=== PATIENT | male | born 1940 | race Caucasian/White ===

== ENCOUNTER → 2016-09-01 | Outpatient (CLI) | payer MEDICARE, OTHER ==
[2016-09-01 15:44] LABS: ABSOLUTE EOSINOPHILS # (AUTO) 0.3 10^3/uL (0.0-0.6); ABSOLUTE LYMPHOCYTES (AUTO) 1.8 10^3/uL (0.5-4.7); ABSOLUTE NEUT (AUTO) 6.3 10^3/uL (1.7-8.2); BASOPHILS % (AUTO) 0.4 % (0-2); EOSINOPHILS % (AUTO) 3.3 % (0-6); HEMATOCRIT 29.9 % (37.9-51.0); HEMOGLOBIN 9.8 g/dL (13.5-17.0); HGB HCT DIFFERENCE -0.5; LYMPHOCYTES % (AUTO) 18.8 % (13-45); MEAN CORPUSCULAR HEMOGLOBIN 27.5 pg (27.0-33.4); MEAN CORPUSCULAR HGB CONC 32.7 g/dL (32.0-36.0); MEAN CORPUSCULAR VOLUME 84 fl (80-97); MONOCYTES % (AUTO) 10.7 % (3-13); RED BLOOD COUNT 3.55 10^6/uL (4.35-5.55); RED CELL DISTRIBUTION WIDTH 14.1 % (11.5-14.0); SEGMENTED NEUTROPHILS % (AUTO) 66.8 % (42-78); WHITE BLOOD COUNT 9.4 10^3/uL (4.0-10.5)
[2016-09-01 16:31] LABS: ERYTHROCYTE SEDIMENTATION RATE 92 mm/hr (0-20)
== END ==
LOC: OD 14:55
PROVIDERS: ATTEND Specialist
DX: R10.9 Unspecified abdominal pain (principal); K92.1 Melena; K51.90 Ulcerative colitis, unspecified, without complications; R11.0 Nausea
CPT/HCPCS: 36415; 85025; 85652; 86140; 86256; 87493

== ENCOUNTER 2016-09-07 21:34 | Emergency (ER) | payer MEDICARE, OTHER ==
[2016-09-07] MEDS ORDERED: ACETAMINOPHEN 325 MG TABLET PO ONE (22:31)
[2016-09-07 23:37] LABS: VENOUS BLOOD BASE EXCESS 1.7 mmol/L; VENOUS BLOOD HCO3 25.1 mmol/L (20-32); VENOUS BLOOD PCO2 35.6 mmHg (35-63); VENOUS BLOOD PH 7.47 (7.30-7.42)
[2016-09-07 23:42] LABS: ABSOLUTE BASOPHILS # (AUTO) 0.1 10^3/uL (0.0-0.2); ABSOLUTE EOSINOPHILS # (AUTO) 0.1 10^3/uL (0.0-0.6); ABSOLUTE LYMPHOCYTES (AUTO) 0.8 10^3/uL (0.5-4.7); ABSOLUTE MONOCYTES (AUTO) 1.5 10^3/uL (0.1-1.4); ABSOLUTE NEUT (AUTO) 12.4 10^3/uL (1.7-8.2); BASOPHILS % (AUTO) 0.6 % (0-2); EOSINOPHILS % (AUTO) 0.6 % (0-6); HEMOGLOBIN 8.7 g/dL (13.5-17.0); HGB HCT DIFFERENCE -0.9; LYMPHOCYTES % (AUTO) 5.7 % (13-45); MEAN CORPUSCULAR HEMOGLOBIN 26.5 pg (27.0-33.4); MEAN CORPUSCULAR HGB CONC 32.4 g/dL (32.0-36.0); MEAN CORPUSCULAR VOLUME 82 fl (80-97); RED BLOOD COUNT 3.29 10^6/uL (4.35-5.55); RED CELL DISTRIBUTION WIDTH 14.2 % (11.5-14.0); SEGMENTED NEUTROPHILS % (AUTO) 83.1 % (42-78); WHITE BLOOD COUNT 14.9 10^3/uL (4.0-10.5)
--- NOTE | 2016-09-07 23:49 | ER Document Report ---
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 He says he has a week off and on for last several days but tonight was prepping for colonoscopy. He started having diarrhea. He then started feels shaky all over and was tremulous for an hour. They checked his temp at home and it was 100.6. When he arrived here his fever was 101.6. He is scheduled to have a colonoscopy tomorrow by Dr. Elder Saba [facility]. He denies any vomiting. He says his hemoglobin has been trending downward is concerned that maybe this is making him more weak as well. Dysuria. He denies abdominal pain. He has had chronic diarrhea since February of last year. This was following being started on Augmentin. All his C. difficile test have been negative. He had a recent C. difficile testing last week which was also negative. He has had colonoscopy which showed proctitis. He has not had any biopsies or clipping of colon polyps. He has had some hemorrhoids banned. Previous history of atrial fibrillation. He underwent an ablation procedure which has been successful. Following the ablation's procedure he did require placement of a pacemaker which she still has. He is on no blood thinning medications currently. TRAVEL OUTSIDE OF THE [place] IN LAST 30 DAYS: No COUNTRY TRAVELED TO/FROM: [place] - Related Data Allergies/Adverse Reactions: No Known Allergies Allergy (Verified 06/07/16 06:40) Past Medical History - Social History Smoking Status: Unknown if Ever Smoked Frequency of alcohol use: None Drug Abuse: None Family History: Reviewed & Not Pertinent Patient has suicidal ideation: No Patient has homicidal ideation: No - Past Medical History Cardiac Medical History: Reports: Hx Coronary Artery Disease, Hx Hypertension - BORDERLINE Denies: Hx Heart Attack Pulmonary Medical History: Denies: Hx Asthma, Hx Bronchitis, Hx COPD, Hx Pneumonia Neurological Medical History: Denies: Hx Cerebrovascular Accident, Hx Seizures Renal/ Medical History: Denies: Hx Peritoneal Dialysis GI Medical History: Reports: Hx Ulcer - GIB 1980, peptic ulcer tx for H. pylori. Denies: Hx Hepatitis - neg, Hx Hiatal Hernia Musculoskeltal Medical History: Reports Hx Arthritis - KNEES, HX COMPRESSION FX' S Infectious Medical History: Denies: Hx Hepatitis - neg Past Surgical History: Reports: Hx Open Heart Surgery - robotic cardiac maze, Hx Pacemaker - Immunizations Hx Diphtheria, Pertussis, Tetanus Vaccination: Yes Hx Pneumococcal Vaccination: 03/27/14 Review of Systems - Review of Systems Notes: My Normal Review Basic REVIEW OF SYSTEMS: CONSTITUTIONAL : Denies fever, chills, or sweats. Denies recent illness. EENT: Denies eye, ear, throat, or mouth pain or symptoms. Denies nasal or sinus congestion. CARDIOVASCULAR: Denies chest pain. RESPIRATORY: Denies cough, cold, or chest congestion. Denies shortness of breath, difficulty breathing, or wheezing. GASTROINTESTINAL: Denies abdominal pain. Denies nausea, vomiting. Has recurrent diarrhea. GENITOURINARY: Denies difficulty urinating, painful urination, burning, frequency, or blood in urine. MUSCULOSKELETAL: Denies neck or back pain or joint pain or swelling. SKIN: Denies rash or skin lesions. HEMATOLOGIC : Denies easy bruising or bleeding. LYMPHATIC: Denies swollen, enlarged glands. NEUROLOGICAL: Denies altered mental status or loss of consciousness. Denies headache. Denies weakness or paralysis or loss of use of either side. Denies problems with gait or speech. Denies sensory or motor loss. ALL OTHER SYSTEMS REVIEWED AND NEGATIVE. Physical Exam - Vital signs Vitals: Temp Pulse Resp BP Pulse Ox 101.6 F H 86 20 149/62 H 92 09/07/16 21:40 09/07/16 21:40 09/07/16 21:40 09/07/16 21:40 09/07/16 21:40 - Notes Notes: General Appearance: Well nourished, alert, cooperative, no acute distress, no obvious discomfort. weak appearing. Vitals: reviewed, See vital signs table. Head: no swelling or tenderness to the head Eyes: PERRL, EOMI, Conjuctiva clear Mouth: No decreasd moisture Neck: Supple, no neck tenderness, No thyromegaly Lungs: No wheezing, No rales, No rhonci, No accessory muscle use, good air exchange bilaterally. Heart: Normal rate, Regular rythm, No murmur, no rub Abdomen: Normal BS, soft, No rigidity, No abdominal tenderness, No guarding, no rebound, no abdominal masses, no organomegaly Rectal: Some small amount of superficial skin breakdown around the rectal area. No evidence of abscesses or swelling. No active bleeding. Extremities: strength 5/5 in all extremities, good pulses in all extremities, no swelling or tenderness in the extremities, no edema. Skin: warm, dry, appropriate color, no rash Neuro: speech clear, oriented x 3, normal affect, responds appropriately to questions. Course - Vital Signs Vital signs: Temp Pulse Resp BP Pulse Ox 97.8 F 86 18 122/72 99 09/08/16 05:12 09/07/16 21:40 09/08/16 05:13 09/08/16 05:11 09/08/16 05:11 - Laboratory Result Diagrams: 09/07/16 23:15 09/07/16 23:15 Laboratory results interpreted by me: 09/07/16 09/07/16 09/07/16 23:15 23:15 23:15 WBC 14.9 H RBC 3.29 L Hgb 8.7 L Hct 27.0 L MCH 26.5 L RDW 14.2 H Seg Neutrophils % 83.1 H Lymphocytes % 5.7 L Absolute Neutrophils 12.4 H Absolute Monocytes 1.5 H VBG pH 7.47 H Sodium 136.5 L Glucose 168 H ALT 17 L Creatine Kinase 50 L Albumin 3.4 L Urine Ketones Urine Ascorbic Acid Crossmatch 09/07/16 09/08/16 23:15 01:05 WBC RBC Hgb Hct MCH RDW Seg Neutrophils % Lymphocytes % Absolute Neutrophils Absolute Monocytes VBG pH Sodium Glucose ALT Creatine Kinase Albumin Urine Ketones TRACE H Urine Ascorbic Acid 40 H Crossmatch See Detail - EKG Interpretation by Me Additional EKG results interpreted by me: 09/07/16 23:49 Is reviewed and interpreted by me. EKG shows paced rhythm with a rate of [address] segment elevation or depression. No ischemic T-wave inversions. Intervals prolonged. QRS duration QT intervals are within normal range. No old EKG available for comparison at this time. - Transfer of Care Notes: 09/08/16 06:01 Weakness is gone. Clinically he looks well and he feels much improved. He does have an elevated white blood cell count and did have a fever. I suspect this probably related to his chronic prostatitis. Now that he is developing fever I think it is appropriate to treat him with Cipro and Flagyl. I did perform a CT scan and did not show any evidence of any other causes of infection. His chest x-ray and urinalysis were negative. Patient's will be discharged home. I informed him that he must return to ER immediately if he has recurrent fevers or feels unwell. I did speak with Ginger Dawson for DR. Friedman, he will cancel the colonoscopy this morning but have the office dr. Soares arrange for a new follow-up appointment and also to see how he is doing. I encouraged him to follow-up closely with his primary care doctor. Patient's hemoglobin was 8.7 however I think this is artificially elevated due to some dehydration. His hemoglobin is 8.1 a few days he only had bleeding since then. I suspect his hemoglobin is most likely the 7 range. Patient has been feeling more more week and did request a blood transfusion. I did review the risks and benefits of blood transfusion and he still want to go forward with that. Patient was given 1 unit of blood. He feels much improved. Patient will be discharged home. Patient agrees with plan. Discharge - Discharge Clinical Impression: Diarrhea Qualifiers: Diarrhea type: unspecified type Qualified Code(s): R19.7 - Diarrhea, unspecified Fever Qualifiers: Fever type: unspecified Qualified Code(s): R50.9 - Fever, unspecified Condition: Good Disposition: HOME, SELF-CARE Additional Instructions: Please return to the ER immediately if you develop fevers, any abdominal pain, feel you are getting weak again, or have further concerns. You should be hearing from Dr. Friedman's office tomorrow. They have cancelled your colonoscopy. do not do any further bowel prep. Please follow up with your doctor tomorrow or Monday for reevaluation. Prescriptions: Ciprofloxacin HCl [Cipro 500 mg Tablet] 500 mg PO BID #14 tablet Metronidazole [Flagyl 500 mg Tablet] 500 mg PO Q6H #28 tablet Referrals: ADIA RDZ MD [Primary Care Provider] - 09/09/16
[2016-09-07 23:52] LABS: ALANINE AMINOTRANSFERASE 17 U/L (21-72); ALBUMIN 3.4 g/dL (3.5-5.0); ALKALINE PHOSPHATASE 78 U/L (38-126); ANION GAP 12 (5-19); ASPARTATE AMINO TRANSFERASE 49 U/L (17-59); BILIRUBIN,DIRECT 0.4 mg/dL (0.0-0.4); BILIRUBIN,TOTAL 0.7 mg/dL (0.2-1.3); BLOOD UREA NITROGEN 20 mg/dL (7-20); CALCIUM 8.7 mg/dL (8.4-10.2); CARBON DIOXIDE 23 mmol/L (22-30); CHLORIDE 102 mmol/L (98-107); CREATINE KINASE 50 U/L (55-170); GLUCOSE 168 mg/dL (75-110); POTASSIUM 4.6 mmol/L (3.6-5.0); SODIUM 136.5 mmol/L (137-145)
[2016-09-08 00:01] LABS: CREATINE KINASE MB 0.49 ng/mL (<4.55)
[2016-09-08 00:06] LABS: TROPONIN I 0.035 ng/mL
[2016-09-08] MEDS ORDERED: NORMAL SALINE 250 ML IV PRN (00:09)
[2016-09-08] MEDS ORDERED: NORMAL SALINE 500 ML IV ONE (01:07)
[2016-09-08 01:24] LABS: APPEARANCE,URINE CLEAR; BILIRUBIN,URINE NEGATIVE (NEGATIVE); GLUCOSE, URINE NEGATIVE (NEGATIVE); KETONES,URINE TRACE mg/dL (NEGATIVE); LEUKOCYTE ESTERASE,URINE NEGATIVE (NEGATIVE); NITRITE,URINE NEGATIVE (NEGATIVE); PROTEIN,URINE NEGATIVE (NEGATIVE); URINE SPECIFIC GRAVITY 1.016; UROBILINOGEN,URINE NEGATIVE mg/dL (<2.0)
--- NOTE | 2016-09-08 02:16 | RADIOLOGY REPORT (SQ) ---
EXAM DESCRIPTION: CHEST PA/LAT COMPLETED DATE/TIME: 09/08/2016 1:50 am REASON FOR STUDY: fever COMPARISON: 02/18/2009. EXAM PARAMETERS: NUMBER OF VIEWS: two views TECHNIQUE: Digital Frontal and Lateral radiographic views of the chest acquired. RADIATION DOSE: NA LIMITATIONS: none FINDINGS: LUNGS AND PLEURA: No opacities, masses or pneumothorax. No pleural effusion. Mild hyperin flation. MEDIASTINUM AND HILAR STRUCTURES: No masses or contour abnormalities. HEART AND VASCULAR STRUCTURES: Heart normal size. No evidence for failure. BONES: No acute findings. HARDWARE: Left cardiac stimulation device and leads. Metallic anchor of the right humeral head. OTHER: No other significant finding. IMPRESSION: No acute cardiopulmonary findings. TECHNICAL DOCUMENTATION: JOB ID: [id number] [employer]- All Rights Reserved
--- NOTE | 2016-09-08 04:28 | RADIOLOGY REPORT (SQ) ---
EXAM DESCRIPTION: CT ABD/PELVIS WITH IV ONLY COMPLETED DATE/TIME: 09/08/2016 4:08 am REASON FOR STUDY: diarrhea, fever COMPARISON: 9.30.13 12/05/2008. TECHNIQUE: CT scan of the abdomen and pelvis performed using helical scanning technique with dynamic intravenous contrast injection. No oral contrast. Images reviewed with lung, soft tissue, and bone windows. Reconstructed coronal and sagittal MPR images reviewed. Delayed images for evaluation of the urinary system also acquired. All images stored on PACS. All CT scanners at this facility use dose modulation, iterative reconstruction, and/or weight based d osing when appropriate to reduce radiation dose to as low as reasonably achievable (ALARA). [facility]: Dose Right [facility]: CareDose [facility]: Dose Right [facility]: Teradose 4D [facility]: Netrepid CONTRAST TYPE AND DOSE: contrast/concentration: Isovue 370.00 mg/ml; Total Contrast Delivered: 100.0 ml; Total Saline Delivered: 72.1 ml RENAL FUNCTION: Creatinine 0.9 RADIATION DOSE: 2238 LIMITATIONS: None. FINDINGS: LOWER CHEST: Coronary arterial calcification -stenting. Cardiac stimulation leads. LIVER: Small subpleural cyst of the left lung base. Mild bibasilar atelectasis or scar. SPLEEN: Normal size. No focal lesions. PANCREAS: No masses. No significant calcifications. No adjacent inflammation or peripancreatic fluid collections. Pancreatic duct not dilated. GALLBLADDER: Gallstones. No inflammatory changes to suggest cholecystitis. ADRENAL GLANDS: Likely right adrenalectomy clips. Unremarkable left adrenal gland. RIGHT KIDNEY AND URETER: No solid masses. No significant calcifications. No hydronephrosis or hyd roureter. Moderate perinephric fat stranding. LEFT KIDNEY AND URETER: No solid masses. No significant calcifications. No hydronephrosis or hydr oureter. Moderate perinephric fat stranding. The AORTA AND VESSELS: No aneurysm. No dissection. Renal arteries, SMA, celiac without stenosis. RETROPERITONEUM: No retroperitoneal adenopathy, hemorrhage or masses. BOWEL AND PERITONEAL CAVITY: No masses or inflammatory changes. No free fluid or peritoneal masses. APPENDIX: Surgically absent. PELVIS: No mass or free fluid. Normal bladder. ABDOMINAL WALL: No masses. No hernias. BONES: Moderate L1, mild-moderate L3, and mild L2 compression deformities, stable compared with prior exam, 12/24/2012. OTHER: No other significant finding. IMPRESSION: No acute findings. Cholelithiasis. TECHNICAL DOCUMENTATION: JOB ID: [id number] Quality ID # [id number]: Final reports with documentation of one or more dose reduction techniques (e.g., Au tomated exposure control, adjustment of the mA and/or kV according to patient size, use of iterative reconstruction technique) 2010 [employer]- All Rights Reserved
[2016-09-08] MEDS ORDERED: CIPROFLOXACIN HCL 500 MG TABLET PO ONE (04:41)
[2016-09-08] MEDS ORDERED: METRONIDAZOLE 500 MG TABLET PO ONE (04:41)
[2016-09-08 05:13] VITALS: BP 122/72
--- NOTE | 2016-09-08 08:31 | EKG REPORT ---
SEVERITY:- ABNORMAL ECG - ATRIAL-PACED COMPLEXES LOW VOLTAGE THROUGHOUT : Confirmed by: Ruib Almanza 08-Sep-2016 08:30:24
== END 2016-09-08 05:29 | disposition home or self-care (01) ==
LOC: ER 21:34
DX: R19.7 Diarrhea, unspecified (principal); R50.9 Fever, unspecified; R53.1 Weakness
CPT/HCPCS: 93005; 99285; 86900; 86901; 36415; 82553; 36430; 86850; 82550; 85025; 80053; 81001; 84484; 86920; 82803; 83605; 71020; 74177; 93010; P9016; A9270 ×3; J7050

== ENCOUNTER → 2016-09-13 | Outpatient (CLI) | payer MEDICARE, OTHER ==
[2016-09-14 11:20] LABS: ABSOLUTE LYMPHOCYTES (AUTO) 0.9 10^3/uL (0.5-4.7); ABSOLUTE MONOCYTES (AUTO) 0.5 10^3/uL (0.1-1.4); ABSOLUTE NEUT (AUTO) 12.3 10^3/uL (1.7-8.2); BASOPHILS % (AUTO) 0.1 % (0-2); HEMATOCRIT 31.5 % (37.9-51.0); HEMOGLOBIN 10.2 g/dL (13.5-17.0); HGB HCT DIFFERENCE -0.9; LYMPHOCYTES % (AUTO) 6.3 % (13-45); MEAN CORPUSCULAR HEMOGLOBIN 26.5 pg (27.0-33.4); MEAN CORPUSCULAR HGB CONC 32.2 g/dL (32.0-36.0); MEAN CORPUSCULAR VOLUME 82 fl (80-97); MONOCYTES % (AUTO) 3.7 % (3-13); RED BLOOD COUNT 3.83 10^6/uL (4.35-5.55); RED CELL DISTRIBUTION WIDTH 14.7 % (11.5-14.0); SEGMENTED NEUTROPHILS % (AUTO) 89.9 % (42-78); WHITE BLOOD COUNT 13.6 10^3/uL (4.0-10.5)
[2016-09-14 11:40] LABS: ALANINE AMINOTRANSFERASE 26 U/L (21-72); ALBUMIN 3.6 g/dL (3.5-5.0); ALKALINE PHOSPHATASE 82 U/L (38-126); ANION GAP 15 (5-19); ASPARTATE AMINO TRANSFERASE 28 U/L (17-59); BILIRUBIN,DIRECT 0.4 mg/dL (0.0-0.4); BILIRUBIN,TOTAL 0.4 mg/dL (0.2-1.3); BLOOD UREA NITROGEN 22 mg/dL (7-20); CALCIUM 9.5 mg/dL (8.4-10.2); CARBON DIOXIDE 21 mmol/L (22-30); CHLORIDE 103 mmol/L (98-107); CREATININE RESULT 0.88 mg/dL (0.52-1.25); GLUCOSE 164 mg/dL (75-110); POTASSIUM 4.9 mmol/L (3.6-5.0); SODIUM 138.5 mmol/L (137-145); TOTAL PROTEIN 7.1 g/dL (6.3-8.2)
[2016-09-15 08:31] LABS: CYTOMEGALOVIRUS IGG AB <0.60 U/mL (0.00-0.59); HSV-I IGG AB <0.91 index (0.00-0.90); HSV-II IGG AB >23.60 index (0.00-0.90)
[2016-09-16 08:48] LABS: HSV I AND II IGM AB <0.91 Ratio (0.00-0.90)
[2016-09-20 15:38] LABS: QUANTIFERON TB ANTIGEN VALUE 0.03 IU/mL (.); QUANTIFERON TB NIL VALUE 0.02 IU/mL (.)
[2016-09-21 07:05] LABS: TPMT ACTIVITY 19.1 (.)
== END ==
LOC: OD 15:11
PROVIDERS: ATTEND Internal Medicine Gastroenterology
DX: D64.9 Anemia, unspecified (principal); K52.9 Noninfective gastroenteritis and colitis, unspecified
CPT/HCPCS: 36415; 80053; 82542; 85025; 86317; 86480; 86644; 86695; 86696; 87340

== ENCOUNTER → 2016-11-01 | Outpatient (CLI) | payer MEDICARE, OTHER ==
[2016-11-01 12:32] LABS: ABSOLUTE EOSINOPHILS # (AUTO) 0.1 10^3/uL (0.0-0.6); ABSOLUTE LYMPHOCYTES (AUTO) 1.2 10^3/uL (0.5-4.7); ABSOLUTE MONOCYTES (AUTO) 0.7 10^3/uL (0.1-1.4); ABSOLUTE NEUT (AUTO) 6.2 10^3/uL (1.7-8.2); BASOPHILS % (AUTO) 0.6 % (0-2); EOSINOPHILS % (AUTO) 1.1 % (0-6); HEMATOCRIT 33.3 % (37.9-51.0); HGB HCT DIFFERENCE -0.3; LYMPHOCYTES % (AUTO) 15.1 % (13-45); MEAN CORPUSCULAR HEMOGLOBIN 27.8 pg (27.0-33.4); MEAN CORPUSCULAR HGB CONC 32.9 g/dL (32.0-36.0); MEAN CORPUSCULAR VOLUME 85 fl (80-97); MONOCYTES % (AUTO) 8.2 % (3-13); RED BLOOD COUNT 3.94 10^6/uL (4.35-5.55); RED CELL DISTRIBUTION WIDTH 16.4 % (11.5-14.0); WHITE BLOOD COUNT 8.2 10^3/uL (4.0-10.5)
== END ==
LOC: OD 11:46
PROVIDERS: ATTEND Internal Medicine Gastroenterology
DX: D64.9 Anemia, unspecified (principal)
CPT/HCPCS: 36415; 82728; 83540; 83550; 85025

== ENCOUNTER → 2017-04-26 | Outpatient (CLI) | payer MEDICARE, OTHER | LOC: OD 15:31 | PROVIDERS: ATTEND Internal Medicine Gastroenterology | DX: K50.10 Crohn's disease of large intestine without complications (principal) | CPT/HCPCS: 36415 ==

== ENCOUNTER → 2017-05-12 | Outpatient (CLI) | payer MEDICARE, OTHER ==
[2017-05-12 13:05] LABS: ABSOLUTE EOSINOPHILS # (AUTO) 0.2 10^3/uL (0.0-0.6); ABSOLUTE NEUT (AUTO) 6.5 10^3/uL (1.7-8.2); BASOPHILS % (AUTO) 0.5 % (0-2); HEMATOCRIT 29.6 % (37.9-51.0); HEMOGLOBIN 9.9 g/dL (13.5-17.0); LYMPHOCYTES % (AUTO) 11.5 % (13-45); MEAN CORPUSCULAR HEMOGLOBIN 28.4 pg (27.0-33.4); MEAN CORPUSCULAR HGB CONC 33.4 g/dL (32.0-36.0); MEAN CORPUSCULAR VOLUME 85 fl (80-97); PLATELET COUNT 354 10^3/uL (150-450); RED BLOOD COUNT 3.48 10^6/uL (4.35-5.55); RED CELL DISTRIBUTION WIDTH 13.3 % (11.5-14.0); TOTAL CELLS COUNTED % (AUTO) 100 %; WHITE BLOOD COUNT 8.7 10^3/uL (4.0-10.5)
[2017-05-12 13:25] LABS: ALANINE AMINOTRANSFERASE 22 U/L (21-72); ALBUMIN 3.4 g/dL (3.5-5.0); ALKALINE PHOSPHATASE 93 U/L (38-126); ANION GAP 9 (5-19); ASPARTATE AMINO TRANSFERASE 21 U/L (17-59); BILIRUBIN,DIRECT 0.4 mg/dL (0.0-0.4); BILIRUBIN,TOTAL 0.6 mg/dL (0.2-1.3); BLOOD UREA NITROGEN 21 mg/dL (7-20); CALCIUM 9.7 mg/dL (8.4-10.2); CARBON DIOXIDE 26 mmol/L (22-30); CHLORIDE 101 mmol/L (98-107); GLUCOSE 178 mg/dL (75-110); POTASSIUM 5.1 mmol/L (3.6-5.0); SODIUM 136.1 mmol/L (137-145); TOTAL PROTEIN 6.8 g/dL (6.3-8.2)
[2017-05-12 13:38] LABS: C-REACTIVE PROTEIN 178.1 mg/L (<10.0)
[2017-05-12 13:48] LABS: ERYTHROCYTE SEDIMENTATION RATE 104 mm/hr (0-20)
== END ==
LOC: OD 12:09
PROVIDERS: ATTEND Internal Medicine Gastroenterology
DX: K50.10 Crohn's disease of large intestine without complications (principal)
CPT/HCPCS: 36415; 80053; 85025; 85652; 86140; 87040; 87077; 87186

== ENCOUNTER → 2017-05-19 | Outpatient (CLI) | payer MEDICARE, OTHER ==
[2017-05-19 13:52] LABS: ABSOLUTE BASOPHILS # (AUTO) 0.1 10^3/uL (0.0-0.2); ABSOLUTE EOSINOPHILS # (AUTO) 0.1 10^3/uL (0.0-0.6); ABSOLUTE LYMPHOCYTES (AUTO) 1.4 10^3/uL (0.5-4.7); ABSOLUTE MONOCYTES (AUTO) 1.3 10^3/uL (0.1-1.4); ABSOLUTE NEUT (AUTO) 10.5 10^3/uL (1.7-8.2); BASOPHILS % (AUTO) 0.8 % (0-2); EOSINOPHILS % (AUTO) 0.7 % (0-6); HEMOGLOBIN 10.2 g/dL (13.5-17.0); LYMPHOCYTES % (AUTO) 10.8 % (13-45); MEAN CORPUSCULAR HEMOGLOBIN 27.7 pg (27.0-33.4); MEAN CORPUSCULAR HGB CONC 32.9 g/dL (32.0-36.0); MEAN CORPUSCULAR VOLUME 84 fl (80-97); MONOCYTES % (AUTO) 9.5 % (3-13); PLATELET COUNT 422 10^3/uL (150-450); RED BLOOD COUNT 3.68 10^6/uL (4.35-5.55); RED CELL DISTRIBUTION WIDTH 13.5 % (11.5-14.0); SEGMENTED NEUTROPHILS % (AUTO) 78.2 % (42-78); TOTAL CELLS COUNTED % (AUTO) 100 %; WHITE BLOOD COUNT 13.5 10^3/uL (4.0-10.5)
== END ==
LOC: OD 12:44
PROVIDERS: ATTEND Internal Medicine Gastroenterology
DX: K50.10 Crohn's disease of large intestine without complications (principal)
CPT/HCPCS: 36415; 85025

== ENCOUNTER → 2017-05-26 | Outpatient (CLI) | payer MEDICARE, OTHER ==
[2017-05-26 17:55] LABS: ABSOLUTE LYMPHOCYTES (AUTO) 0.8 10^3/uL (0.5-4.7); ABSOLUTE MONOCYTES (AUTO) 0.4 10^3/uL (0.1-1.4); ABSOLUTE NEUT (AUTO) 12.3 10^3/uL (1.7-8.2); BASOPHILS % (AUTO) 0.3 % (0-2); EOSINOPHILS % (AUTO) 0.3 % (0-6); HEMATOCRIT 32.8 % (37.9-51.0); HEMOGLOBIN 10.7 g/dL (13.5-17.0); MEAN CORPUSCULAR HEMOGLOBIN 27.7 pg (27.0-33.4); MEAN CORPUSCULAR HGB CONC 32.6 g/dL (32.0-36.0); MEAN CORPUSCULAR VOLUME 85 fl (80-97); MONOCYTES % (AUTO) 3.2 % (3-13); PLATELET COUNT 348 10^3/uL (150-450); RED BLOOD COUNT 3.86 10^6/uL (4.35-5.55); RED CELL DISTRIBUTION WIDTH 14.2 % (11.5-14.0); SEGMENTED NEUTROPHILS % (AUTO) 90.2 % (42-78); TOTAL CELLS COUNTED % (AUTO) 100 %; WHITE BLOOD COUNT 13.7 10^3/uL (4.0-10.5)
== END ==
LOC: OD 17:08
PROVIDERS: ATTEND Internal Medicine Gastroenterology
DX: K50.10 Crohn's disease of large intestine without complications (principal)
CPT/HCPCS: 36415; 85025

== ENCOUNTER → 2017-06-02 | Outpatient (CLI) | payer MEDICARE, OTHER ==
[2017-06-02 11:29] LABS: ABSOLUTE BASOPHILS # (AUTO) 0.1 10^3/uL (0.0-0.2); ABSOLUTE EOSINOPHILS # (AUTO) 0.2 10^3/uL (0.0-0.6); ABSOLUTE LYMPHOCYTES (AUTO) 2.1 10^3/uL (0.5-4.7); ABSOLUTE MONOCYTES (AUTO) 1.2 10^3/uL (0.1-1.4); ABSOLUTE NEUT (AUTO) 4.6 10^3/uL (1.7-8.2); BASOPHILS % (AUTO) 0.7 % (0-2); EOSINOPHILS % (AUTO) 2.7 % (0-6); HEMATOCRIT 30.9 % (37.9-51.0); LYMPHOCYTES % (AUTO) 25.3 % (13-45); MEAN CORPUSCULAR HEMOGLOBIN 27.9 pg (27.0-33.4); MEAN CORPUSCULAR HGB CONC 32.3 g/dL (32.0-36.0); MEAN CORPUSCULAR VOLUME 86 fl (80-97); MONOCYTES % (AUTO) 14.2 % (3-13); PLATELET COUNT 295 10^3/uL (150-450); RED BLOOD COUNT 3.58 10^6/uL (4.35-5.55); RED CELL DISTRIBUTION WIDTH 14.9 % (11.5-14.0); SEGMENTED NEUTROPHILS % (AUTO) 57.1 % (42-78); TOTAL CELLS COUNTED % (AUTO) 100 %; WHITE BLOOD COUNT 8.1 10^3/uL (4.0-10.5)
== END ==
LOC: OD 10:42
PROVIDERS: ATTEND Internal Medicine Gastroenterology
DX: K50.10 Crohn's disease of large intestine without complications (principal)
CPT/HCPCS: 36415; 85025

== ENCOUNTER → 2017-06-16 | Outpatient (CLI) | payer MEDICARE, OTHER ==
[2017-06-16 13:25] LABS: ABSOLUTE BASOPHILS # (AUTO) 0.1 10^3/uL (0.0-0.2); ABSOLUTE EOSINOPHILS # (AUTO) 0.2 10^3/uL (0.0-0.6); ABSOLUTE LYMPHOCYTES (AUTO) 1.5 10^3/uL (0.5-4.7); ABSOLUTE MONOCYTES (AUTO) 0.9 10^3/uL (0.1-1.4); ABSOLUTE NEUT (AUTO) 5.1 10^3/uL (1.7-8.2); BASOPHILS % (AUTO) 0.7 % (0-2); EOSINOPHILS % (AUTO) 2.2 % (0-6); HEMATOCRIT 29.4 % (37.9-51.0); HEMOGLOBIN 9.6 g/dL (13.5-17.0); LYMPHOCYTES % (AUTO) 19.5 % (13-45); MEAN CORPUSCULAR HEMOGLOBIN 27.9 pg (27.0-33.4); MEAN CORPUSCULAR HGB CONC 32.5 g/dL (32.0-36.0); MEAN CORPUSCULAR VOLUME 86 fl (80-97); MONOCYTES % (AUTO) 12.1 % (3-13); PLATELET COUNT 306 10^3/uL (150-450); RED BLOOD COUNT 3.42 10^6/uL (4.35-5.55); RED CELL DISTRIBUTION WIDTH 15.3 % (11.5-14.0); SEGMENTED NEUTROPHILS % (AUTO) 65.5 % (42-78); TOTAL CELLS COUNTED % (AUTO) 100 %; WHITE BLOOD COUNT 7.8 10^3/uL (4.0-10.5)
== END ==
LOC: OD 12:03
PROVIDERS: ATTEND Internal Medicine Gastroenterology
DX: K50.10 Crohn's disease of large intestine without complications (principal)
CPT/HCPCS: 36415; 85025

== ENCOUNTER → 2017-06-30 | Outpatient (CLI) | payer MEDICARE, OTHER ==
[2017-06-30 12:54] LABS: ABSOLUTE EOSINOPHILS # (AUTO) 0.1 10^3/uL (0.0-0.6); ABSOLUTE LYMPHOCYTES (AUTO) 1.3 10^3/uL (0.5-4.7); ABSOLUTE MONOCYTES (AUTO) 1.1 10^3/uL (0.1-1.4); ABSOLUTE NEUT (AUTO) 5.3 10^3/uL (1.7-8.2); BASOPHILS % (AUTO) 0.6 % (0-2); EOSINOPHILS % (AUTO) 1.8 % (0-6); HEMATOCRIT 29.5 % (37.9-51.0); HEMOGLOBIN 9.7 g/dL (13.5-17.0); LYMPHOCYTES % (AUTO) 16.1 % (13-45); MEAN CORPUSCULAR HEMOGLOBIN 27.7 pg (27.0-33.4); MEAN CORPUSCULAR HGB CONC 32.8 g/dL (32.0-36.0); MEAN CORPUSCULAR VOLUME 85 fl (80-97); MONOCYTES % (AUTO) 13.7 % (3-13); PLATELET COUNT 344 10^3/uL (150-450); RED BLOOD COUNT 3.49 10^6/uL (4.35-5.55); RED CELL DISTRIBUTION WIDTH 15.4 % (11.5-14.0); SEGMENTED NEUTROPHILS % (AUTO) 67.8 % (42-78); TOTAL CELLS COUNTED % (AUTO) 100 %; WHITE BLOOD COUNT 7.8 10^3/uL (4.0-10.5)
== END ==
LOC: OD 12:03
PROVIDERS: ATTEND Internal Medicine Gastroenterology
DX: K50.10 Crohn's disease of large intestine without complications (principal)
CPT/HCPCS: 36415; 85025

== ENCOUNTER → 2017-07-14 | Outpatient (CLI) | payer MEDICARE, OTHER ==
[2017-07-14 16:29] LABS: ABSOLUTE EOSINOPHILS # (AUTO) 0.1 10^3/uL (0.0-0.6); ABSOLUTE LYMPHOCYTES (AUTO) 1.2 10^3/uL (0.5-4.7); ABSOLUTE MONOCYTES (AUTO) 0.9 10^3/uL (0.1-1.4); ABSOLUTE NEUT (AUTO) 8.8 10^3/uL (1.7-8.2); BASOPHILS % (AUTO) 0.3 % (0-2); EOSINOPHILS % (AUTO) 1.3 % (0-6); HEMATOCRIT 29.7 % (37.9-51.0); HEMOGLOBIN 9.5 g/dL (13.5-17.0); LYMPHOCYTES % (AUTO) 10.4 % (13-45); MEAN CORPUSCULAR HGB CONC 31.9 g/dL (32.0-36.0); MEAN CORPUSCULAR VOLUME 85 fl (80-97); MONOCYTES % (AUTO) 8.5 % (3-13); PLATELET COUNT 244 10^3/uL (150-450); RED BLOOD COUNT 3.51 10^6/uL (4.35-5.55); RED CELL DISTRIBUTION WIDTH 15.8 % (11.5-14.0); SEGMENTED NEUTROPHILS % (AUTO) 79.5 % (42-78); TOTAL CELLS COUNTED % (AUTO) 100 %
== END ==
LOC: OD 15:51
PROVIDERS: ATTEND Internal Medicine Gastroenterology
DX: K50.10 Crohn's disease of large intestine without complications (principal)
CPT/HCPCS: 36415; 85025

== ENCOUNTER → 2017-07-31 | Outpatient (CLI) | payer MEDICARE, OTHER ==
[2017-07-31 14:50] LABS: ABSOLUTE EOSINOPHILS # (AUTO) 0.2 10^3/uL (0.0-0.6); ABSOLUTE LYMPHOCYTES (AUTO) 1.2 10^3/uL (0.5-4.7); ABSOLUTE MONOCYTES (AUTO) 0.9 10^3/uL (0.1-1.4); ABSOLUTE NEUT (AUTO) 6.2 10^3/uL (1.7-8.2); BASOPHILS % (AUTO) 0.5 % (0-2); EOSINOPHILS % (AUTO) 1.8 % (0-6); HEMATOCRIT 28.8 % (37.9-51.0); HEMOGLOBIN 9.3 g/dL (13.5-17.0); LYMPHOCYTES % (AUTO) 14.4 % (13-45); MEAN CORPUSCULAR HEMOGLOBIN 27.1 pg (27.0-33.4); MEAN CORPUSCULAR HGB CONC 32.4 g/dL (32.0-36.0); MEAN CORPUSCULAR VOLUME 84 fl (80-97); MONOCYTES % (AUTO) 10.3 % (3-13); PLATELET COUNT 230 10^3/uL (150-450); RED BLOOD COUNT 3.44 10^6/uL (4.35-5.55); TOTAL CELLS COUNTED % (AUTO) 100 %; WHITE BLOOD COUNT 8.5 10^3/uL (4.0-10.5)
== END ==
LOC: OD 14:07
PROVIDERS: ATTEND Internal Medicine Gastroenterology
DX: K50.10 Crohn's disease of large intestine without complications (principal)
CPT/HCPCS: 36415; 85025

== ENCOUNTER → 2017-08-16 | Outpatient (CLI) | payer MEDICARE, OTHER ==
[2017-08-16 14:24] LABS: ABSOLUTE EOSINOPHILS # (AUTO) 0.2 10^3/uL (0.0-0.6); ABSOLUTE LYMPHOCYTES (AUTO) 1.2 10^3/uL (0.5-4.7); ABSOLUTE MONOCYTES (AUTO) 0.8 10^3/uL (0.1-1.4); ABSOLUTE NEUT (AUTO) 5.5 10^3/uL (1.7-8.2); BASOPHILS % (AUTO) 0.6 % (0-2); EOSINOPHILS % (AUTO) 2.4 % (0-6); HEMATOCRIT 29.9 % (37.9-51.0); HEMOGLOBIN 9.6 g/dL (13.5-17.0); LYMPHOCYTES % (AUTO) 15.7 % (13-45); MEAN CORPUSCULAR HEMOGLOBIN 27.2 pg (27.0-33.4); MEAN CORPUSCULAR HGB CONC 32.2 g/dL (32.0-36.0); MEAN CORPUSCULAR VOLUME 84 fl (80-97); MONOCYTES % (AUTO) 9.9 % (3-13); PLATELET COUNT 150 10^3/uL (150-450); RED BLOOD COUNT 3.55 10^6/uL (4.35-5.55); RED CELL DISTRIBUTION WIDTH 17.2 % (11.5-14.0); SEGMENTED NEUTROPHILS % (AUTO) 71.4 % (42-78); TOTAL CELLS COUNTED % (AUTO) 100 %; WHITE BLOOD COUNT 7.8 10^3/uL (4.0-10.5)
== END ==
LOC: OD 12:47
PROVIDERS: ATTEND Internal Medicine Gastroenterology
DX: K50.10 Crohn's disease of large intestine without complications (principal)
CPT/HCPCS: 36415; 85025

== ENCOUNTER → 2017-10-24 | Outpatient (CLI) | payer MEDICARE, OTHER ==
[2017-10-24 17:35] LABS: ABSOLUTE EOSINOPHILS # (AUTO) 0.1 10^3/uL (0.0-0.6); ABSOLUTE MONOCYTES (AUTO) 0.6 10^3/uL (0.1-1.4); ABSOLUTE NEUT (AUTO) 6.8 10^3/uL (1.7-8.2); BASOPHILS % (AUTO) 0.4 % (0-2); EOSINOPHILS % (AUTO) 1.6 % (0-6); HEMATOCRIT 32.6 % (37.9-51.0); HEMOGLOBIN 10.6 g/dL (13.5-17.0); LYMPHOCYTES % (AUTO) 11.7 % (13-45); MEAN CORPUSCULAR HEMOGLOBIN 27.7 pg (27.0-33.4); MEAN CORPUSCULAR HGB CONC 32.5 g/dL (32.0-36.0); MEAN CORPUSCULAR VOLUME 85 fl (80-97); MONOCYTES % (AUTO) 7.1 % (3-13); PLATELET COUNT 184 10^3/uL (150-450); RED BLOOD COUNT 3.82 10^6/uL (4.35-5.55); RED CELL DISTRIBUTION WIDTH 18.2 % (11.5-14.0); SEGMENTED NEUTROPHILS % (AUTO) 79.2 % (42-78); TOTAL CELLS COUNTED % (AUTO) 100 %; WHITE BLOOD COUNT 8.6 10^3/uL (4.0-10.5)
[2017-10-25 12:25] LABS: PATH REVIEW PATHOLOGIST REVIEWED
== END ==
LOC: OD 16:58
PROVIDERS: ATTEND Internal Medicine Gastroenterology
DX: K50.10 Crohn's disease of large intestine without complications (principal)
CPT/HCPCS: 36415; 85025

== ENCOUNTER → 2017-11-07 | Outpatient (CLI) | payer MEDICARE, OTHER ==
[2017-11-07 14:06] LABS: ABSOLUTE EOSINOPHILS # (AUTO) 0.1 10^3/uL (0.0-0.6); ABSOLUTE LYMPHOCYTES (AUTO) 0.9 10^3/uL (0.5-4.7); ABSOLUTE MONOCYTES (AUTO) 0.5 10^3/uL (0.1-1.4); ABSOLUTE NEUT (AUTO) 4.4 10^3/uL (1.7-8.2); BASOPHILS % (AUTO) 0.7 % (0-2); EOSINOPHILS % (AUTO) 1.7 % (0-6); HEMATOCRIT 31.2 % (37.9-51.0); HEMOGLOBIN 10.4 g/dL (13.5-17.0); LYMPHOCYTES % (AUTO) 14.6 % (13-45); MEAN CORPUSCULAR HEMOGLOBIN 28.9 pg (27.0-33.4); MEAN CORPUSCULAR HGB CONC 33.5 g/dL (32.0-36.0); MEAN CORPUSCULAR VOLUME 87 fl (80-97); MONOCYTES % (AUTO) 7.8 % (3-13); PLATELET COUNT 144 10^3/uL (150-450); SEGMENTED NEUTROPHILS % (AUTO) 75.2 % (42-78); TOTAL CELLS COUNTED % (AUTO) 100 %; WHITE BLOOD COUNT 5.9 10^3/uL (4.0-10.5)
[2017-11-07 14:11] LABS: ALANINE AMINOTRANSFERASE 20 U/L (21-72); ALBUMIN 3.5 g/dL (3.5-5.0); ALKALINE PHOSPHATASE 93 U/L (38-126); ANION GAP 12 (5-19); ASPARTATE AMINO TRANSFERASE 30 U/L (17-59); BILIRUBIN,DIRECT 0.3 mg/dL (0.0-0.4); BILIRUBIN,TOTAL 0.5 mg/dL (0.2-1.3); BLOOD UREA NITROGEN 17 mg/dL (7-20); CALCIUM 9.6 mg/dL (8.4-10.2); CARBON DIOXIDE 24 mmol/L (22-30); CHLORIDE 107 mmol/L (98-107); GLUCOSE 122 mg/dL (75-110); POTASSIUM 4.6 mmol/L (3.6-5.0); SODIUM 143.4 mmol/L (137-145); TOTAL PROTEIN 7.5 g/dL (6.3-8.2)
== END ==
LOC: OD 12:53
PROVIDERS: ATTEND Internal Medicine Gastroenterology
DX: K50.10 Crohn's disease of large intestine without complications (principal)
CPT/HCPCS: 36415; 80053; 85025

== ENCOUNTER → 2017-12-20 | Outpatient (CLI) | payer MEDICARE, OTHER ==
[2017-12-20 16:07] LABS: ABSOLUTE EOSINOPHILS # (AUTO) 0.1 10^3/uL (0.0-0.6); ABSOLUTE MONOCYTES (AUTO) 0.6 10^3/uL (0.1-1.4); ABSOLUTE NEUT (AUTO) 4.7 10^3/uL (1.7-8.2); BASOPHILS % (AUTO) 0.6 % (0-2); EOSINOPHILS % (AUTO) 1.5 % (0-6); HEMOGLOBIN 11.2 g/dL (13.5-17.0); LYMPHOCYTES % (AUTO) 15.6 % (13-45); MEAN CORPUSCULAR HEMOGLOBIN 29.1 pg (27.0-33.4); MEAN CORPUSCULAR HGB CONC 32.8 g/dL (32.0-36.0); MEAN CORPUSCULAR VOLUME 89 fl (80-97); MONOCYTES % (AUTO) 8.9 % (3-13); PLATELET COUNT 127 10^3/uL (150-450); RED BLOOD COUNT 3.84 10^6/uL (4.35-5.55); SEGMENTED NEUTROPHILS % (AUTO) 73.4 % (42-78); TOTAL CELLS COUNTED % (AUTO) 100 %; WHITE BLOOD COUNT 6.3 10^3/uL (4.0-10.5)
[2017-12-20 16:32] LABS: ALANINE AMINOTRANSFERASE 19 U/L (21-72); ALBUMIN 3.7 g/dL (3.5-5.0); ALKALINE PHOSPHATASE 108 U/L (38-126); ANION GAP 9 (5-19); ASPARTATE AMINO TRANSFERASE 32 U/L (17-59); BILIRUBIN,DIRECT 0.5 mg/dL (0.0-0.4); BILIRUBIN,TOTAL 0.8 mg/dL (0.2-1.3); BLOOD UREA NITROGEN 25 mg/dL (7-20); CALCIUM 9.4 mg/dL (8.4-10.2); CARBON DIOXIDE 23 mmol/L (22-30); CHLORIDE 105 mmol/L (98-107); GLUCOSE 91 mg/dL (75-110); POTASSIUM 5.1 mmol/L (3.6-5.0); SODIUM 137.3 mmol/L (137-145); TOTAL PROTEIN 7.4 g/dL (6.3-8.2)
== END ==
LOC: OD 15:15
PROVIDERS: ATTEND Internal Medicine Gastroenterology
DX: K50.10 Crohn's disease of large intestine without complications (principal)
CPT/HCPCS: 36415; 80053; 85025

== ENCOUNTER → 2018-03-01 | Outpatient (CLI) | payer MEDICARE, OTHER | LOC: OD 15:04 | PROVIDERS: ATTEND Internal Medicine Gastroenterology | DX: K50.10 Crohn's disease of large intestine without complications (principal) | CPT/HCPCS: 36415 ==

== ENCOUNTER → 2018-04-16 | Outpatient (CLI) | payer MEDICARE, OTHER ==
[2018-04-16 13:36] LABS: ABSOLUTE EOSINOPHILS # (AUTO) 0.1 10^3/uL (0.0-0.6); ABSOLUTE LYMPHOCYTES (AUTO) 0.8 10^3/uL (0.5-4.7); ABSOLUTE MONOCYTES (AUTO) 0.5 10^3/uL (0.1-1.4); ABSOLUTE NEUT (AUTO) 4.4 10^3/uL (1.7-8.2); BASOPHILS % (AUTO) 0.6 % (0-2); EOSINOPHILS % (AUTO) 1.8 % (0-6); HEMATOCRIT 32.6 % (37.9-51.0); HEMOGLOBIN 10.9 g/dL (13.5-17.0); LYMPHOCYTES % (AUTO) 13.8 % (13-45); MEAN CORPUSCULAR HEMOGLOBIN 28.9 pg (27.0-33.4); MEAN CORPUSCULAR HGB CONC 33.4 g/dL (32.0-36.0); MEAN CORPUSCULAR VOLUME 87 fl (80-97); MONOCYTES % (AUTO) 9.1 % (3-13); PLATELET COUNT 131 10^3/uL (150-450); RED BLOOD COUNT 3.77 10^6/uL (4.35-5.55); RED CELL DISTRIBUTION WIDTH 15.7 % (11.5-14.0); SEGMENTED NEUTROPHILS % (AUTO) 74.7 % (42-78); TOTAL CELLS COUNTED % (AUTO) 100 %; WHITE BLOOD COUNT 5.9 10^3/uL (4.0-10.5)
[2018-04-16 13:56] LABS: ALANINE AMINOTRANSFERASE 24 U/L (21-72); ALKALINE PHOSPHATASE 114 U/L (38-126); ANION GAP 8 (5-19); ASPARTATE AMINO TRANSFERASE 31 U/L (17-59); BILIRUBIN,DIRECT 0.3 mg/dL (0.0-0.4); BILIRUBIN,TOTAL 0.6 mg/dL (0.2-1.3); BLOOD UREA NITROGEN 33 mg/dL (7-20); CALCIUM 9.5 mg/dL (8.4-10.2); CARBON DIOXIDE 24 mmol/L (22-30); CHLORIDE 108 mmol/L (98-107); GLUCOSE 115 mg/dL (75-110); POTASSIUM 4.8 mmol/L (3.6-5.0); SODIUM 140.3 mmol/L (137-145); TOTAL PROTEIN 7.1 g/dL (6.3-8.2)
== END ==
LOC: OD 12:59
PROVIDERS: ATTEND Internal Medicine Gastroenterology
DX: K50.10 Crohn's disease of large intestine without complications (principal)
CPT/HCPCS: 36415; 80053; 85025

== ENCOUNTER → 2018-04-24 | Outpatient (CLI) | payer MEDICARE, OTHER ==
[2018-04-24 15:21] LABS: ABSOLUTE EOSINOPHILS # (AUTO) 0.1 10^3/uL (0.0-0.6); ABSOLUTE LYMPHOCYTES (AUTO) 0.9 10^3/uL (0.5-4.7); ABSOLUTE MONOCYTES (AUTO) 0.5 10^3/uL (0.1-1.4); ABSOLUTE NEUT (AUTO) 4.5 10^3/uL (1.7-8.2); BASOPHILS % (AUTO) 0.8 % (0-2); EOSINOPHILS % (AUTO) 2.1 % (0-6); HEMATOCRIT 32.7 % (37.9-51.0); HEMOGLOBIN 11.2 g/dL (13.5-17.0); LYMPHOCYTES % (AUTO) 14.5 % (13-45); MEAN CORPUSCULAR HEMOGLOBIN 29.7 pg (27.0-33.4); MEAN CORPUSCULAR HGB CONC 34.3 g/dL (32.0-36.0); MEAN CORPUSCULAR VOLUME 87 fl (80-97); MONOCYTES % (AUTO) 7.7 % (3-13); PLATELET COUNT 164 10^3/uL (150-450); RED BLOOD COUNT 3.77 10^6/uL (4.35-5.55); SEGMENTED NEUTROPHILS % (AUTO) 74.9 % (42-78); TOTAL CELLS COUNTED % (AUTO) 100 %
[2018-04-24 15:44] LABS: ALANINE AMINOTRANSFERASE 28 U/L (21-72); ALBUMIN 4.1 g/dL (3.5-5.0); ALKALINE PHOSPHATASE 119 U/L (38-126); ANION GAP 10 (5-19); ASPARTATE AMINO TRANSFERASE 32 U/L (17-59); BILIRUBIN,DIRECT 0.3 mg/dL (0.0-0.4); BILIRUBIN,TOTAL 0.9 mg/dL (0.2-1.3); BLOOD UREA NITROGEN 32 mg/dL (7-20); CALCIUM 9.4 mg/dL (8.4-10.2); CARBON DIOXIDE 27 mmol/L (22-30); CHLORIDE 103 mmol/L (98-107); GLUCOSE 170 mg/dL (75-110); SODIUM 139.9 mmol/L (137-145); TOTAL PROTEIN 7.3 g/dL (6.3-8.2)
== END ==
LOC: OD 13:56
PROVIDERS: ATTEND Internal Medicine Gastroenterology
DX: K50.10 Crohn's disease of large intestine without complications (principal)
CPT/HCPCS: 36415; 80053; 85025

== ENCOUNTER → 2018-04-30 | Outpatient (CLI) | payer MEDICARE, OTHER ==
[2018-04-30 13:55] LABS: ABSOLUTE EOSINOPHILS # (AUTO) 0.1 10^3/uL (0.0-0.6); ABSOLUTE LYMPHOCYTES (AUTO) 0.9 10^3/uL (0.5-4.7); ABSOLUTE MONOCYTES (AUTO) 0.5 10^3/uL (0.1-1.4); ABSOLUTE NEUT (AUTO) 4.3 10^3/uL (1.7-8.2); BASOPHILS % (AUTO) 0.6 % (0-2); EOSINOPHILS % (AUTO) 2.2 % (0-6); HEMATOCRIT 33.5 % (37.9-51.0); HEMOGLOBIN 11.3 g/dL (13.5-17.0); LYMPHOCYTES % (AUTO) 14.6 % (13-45); MEAN CORPUSCULAR HEMOGLOBIN 29.4 pg (27.0-33.4); MEAN CORPUSCULAR HGB CONC 33.7 g/dL (32.0-36.0); MEAN CORPUSCULAR VOLUME 87 fl (80-97); MONOCYTES % (AUTO) 8.9 % (3-13); PLATELET COUNT 204 10^3/uL (150-450); RED BLOOD COUNT 3.84 10^6/uL (4.35-5.55); RED CELL DISTRIBUTION WIDTH 16.1 % (11.5-14.0); SEGMENTED NEUTROPHILS % (AUTO) 73.7 % (42-78); TOTAL CELLS COUNTED % (AUTO) 100 %; WHITE BLOOD COUNT 5.9 10^3/uL (4.0-10.5)
== END ==
LOC: OD 13:01
PROVIDERS: ATTEND Internal Medicine Gastroenterology
DX: K50.10 Crohn's disease of large intestine without complications (principal)
CPT/HCPCS: 36415; 85025

== ENCOUNTER → 2018-05-07 | Outpatient (CLI) | payer MEDICARE, OTHER ==
[2018-05-07 17:40] LABS: ABSOLUTE BASOPHILS # (AUTO) 0.1 10^3/uL (0.0-0.2); ABSOLUTE EOSINOPHILS # (AUTO) 0.1 10^3/uL (0.0-0.6); ABSOLUTE LYMPHOCYTES (AUTO) 0.9 10^3/uL (0.5-4.7); ABSOLUTE MONOCYTES (AUTO) 0.7 10^3/uL (0.1-1.4); ABSOLUTE NEUT (AUTO) 5.7 10^3/uL (1.7-8.2); BASOPHILS % (AUTO) 0.7 % (0-2); EOSINOPHILS % (AUTO) 1.5 % (0-6); HEMATOCRIT 35.1 % (37.9-51.0); HEMOGLOBIN 11.9 g/dL (13.5-17.0); LYMPHOCYTES % (AUTO) 12.4 % (13-45); MEAN CORPUSCULAR HEMOGLOBIN 29.7 pg (27.0-33.4); MEAN CORPUSCULAR VOLUME 87 fl (80-97); MONOCYTES % (AUTO) 8.8 % (3-13); PLATELET COUNT 220 10^3/uL (150-450); RED BLOOD COUNT 4.02 10^6/uL (4.35-5.55); RED CELL DISTRIBUTION WIDTH 16.8 % (11.5-14.0); SEGMENTED NEUTROPHILS % (AUTO) 76.6 % (42-78); TOTAL CELLS COUNTED % (AUTO) 100 %; WHITE BLOOD COUNT 7.4 10^3/uL (4.0-10.5)
== END ==
LOC: OD 16:55
PROVIDERS: ATTEND Internal Medicine Gastroenterology
DX: K50.10 Crohn's disease of large intestine without complications (principal)
CPT/HCPCS: 36415; 85025

== ENCOUNTER → 2018-05-21 | Outpatient (CLI) | payer MEDICARE, OTHER ==
[2018-05-21 14:10] LABS: ABSOLUTE EOSINOPHILS # (AUTO) 0.1 10^3/uL (0.0-0.6); ABSOLUTE LYMPHOCYTES (AUTO) 0.9 10^3/uL (0.5-4.7); ABSOLUTE MONOCYTES (AUTO) 0.5 10^3/uL (0.1-1.4); ABSOLUTE NEUT (AUTO) 4.2 10^3/uL (1.7-8.2); BASOPHILS % (AUTO) 0.5 % (0-2); EOSINOPHILS % (AUTO) 1.9 % (0-6); HEMATOCRIT 32.8 % (37.9-51.0); HEMOGLOBIN 11.3 g/dL (13.5-17.0); LYMPHOCYTES % (AUTO) 15.3 % (13-45); MEAN CORPUSCULAR HEMOGLOBIN 30.3 pg (27.0-33.4); MEAN CORPUSCULAR HGB CONC 34.4 g/dL (32.0-36.0); MEAN CORPUSCULAR VOLUME 88 fl (80-97); MONOCYTES % (AUTO) 9.5 % (3-13); PLATELET COUNT 188 10^3/uL (150-450); RED BLOOD COUNT 3.72 10^6/uL (4.35-5.55); RED CELL DISTRIBUTION WIDTH 16.9 % (11.5-14.0); SEGMENTED NEUTROPHILS % (AUTO) 72.8 % (42-78); TOTAL CELLS COUNTED % (AUTO) 100 %; WHITE BLOOD COUNT 5.7 10^3/uL (4.0-10.5)
== END ==
LOC: OD 12:34
PROVIDERS: ATTEND Internal Medicine Gastroenterology
DX: K50.10 Crohn's disease of large intestine without complications (principal)
CPT/HCPCS: 36415; 85025

== ENCOUNTER → 2018-06-18 | Outpatient (CLI) | payer MEDICARE, OTHER ==
[2018-06-18 12:55] LABS: ABSOLUTE EOSINOPHILS # (AUTO) 0.1 10^3/uL (0.0-0.6); ABSOLUTE LYMPHOCYTES (AUTO) 0.9 10^3/uL (0.5-4.7); ABSOLUTE MONOCYTES (AUTO) 0.5 10^3/uL (0.1-1.4); BASOPHILS % (AUTO) 0.5 % (0-2); HEMATOCRIT 33.2 % (37.9-51.0); HEMOGLOBIN 11.4 g/dL (13.5-17.0); LYMPHOCYTES % (AUTO) 16.2 % (13-45); MEAN CORPUSCULAR HEMOGLOBIN 30.8 pg (27.0-33.4); MEAN CORPUSCULAR HGB CONC 34.4 g/dL (32.0-36.0); MEAN CORPUSCULAR VOLUME 90 fl (80-97); MONOCYTES % (AUTO) 9.3 % (3-13); PLATELET COUNT 196 10^3/uL (150-450); RED CELL DISTRIBUTION WIDTH 17.5 % (11.5-14.0); TOTAL CELLS COUNTED % (AUTO) 100 %; WHITE BLOOD COUNT 5.6 10^3/uL (4.0-10.5)
== END ==
LOC: OD 11:37
PROVIDERS: ATTEND Internal Medicine Gastroenterology
DX: K50.10 Crohn's disease of large intestine without complications (principal)
CPT/HCPCS: 36415; 85025

== ENCOUNTER → 2018-06-28 | Outpatient (CLI) | payer MEDICARE, OTHER | LOC: OD 11:08 | PROVIDERS: ATTEND Internal Medicine Gastroenterology | DX: K50.10 Crohn's disease of large intestine without complications (principal) | CPT/HCPCS: 36415 ==

== ENCOUNTER → 2018-07-17 | Outpatient (CLI) | payer MEDICARE, OTHER ==
--- NOTE | 2018-07-17 16:15 | RADIOLOGY REPORT (SQ) ---
EXAM DESCRIPTION: CHEST PA/LATERAL COMPLETED DATE/TIME: 07/17/2018 4:04 pm REASON FOR STUDY: COUGH COMPARISON: 09/08/2016 EXAM PARAMETERS: NUMBER OF VIEWS: two views TECHNIQUE: Digital Frontal and Lateral radiographic views of the chest acquired. RADIATION DOSE: NA LIMITATIONS: none FINDINGS: LUNGS AND PLEURA: No opacities, masses or pneumothorax. No pleural effusion. MEDIASTINUM AND HILAR STRUCTURES: No masses or contour abnormalities. HEART AND VASCULAR STRUCTURES: Heart normal size. No evidence for failure. BONES: No acute findings. HARDWARE: Battery pack and leads remain in place. OTHER: No other significant finding. IMPRESSION: NO SIGNIFICANT RADIOGRAPHIC FINDING IN THE CHEST. TECHNICAL DOCUMENTATION: JOB ID: [id number] [employer]- All Rights Reserved Reading location - IP/workstation name: [email or web address]
== END ==
LOC: OD 15:41
PROVIDERS: ATTEND Internal Medicine Gastroenterology
DX: R05 Cough (principal)
CPT/HCPCS: 71046

== ENCOUNTER → 2018-07-31 | Outpatient (CLI) | payer MEDICARE, OTHER ==
[2018-07-31 16:41] LABS: ABSOLUTE BASOPHILS # (AUTO) 0.1 10^3/uL (0.0-0.2); ABSOLUTE EOSINOPHILS # (AUTO) 0.1 10^3/uL (0.0-0.6); ABSOLUTE LYMPHOCYTES (AUTO) 0.9 10^3/uL (0.5-4.7); ABSOLUTE MONOCYTES (AUTO) 0.3 10^3/uL (0.1-1.4); ABSOLUTE NEUT (AUTO) 5.8 10^3/uL (1.7-8.2); EOSINOPHILS % (AUTO) 1.1 % (0-6); HEMATOCRIT 30.7 % (37.9-51.0); HEMOGLOBIN 10.3 g/dL (13.5-17.0); LYMPHOCYTES % (AUTO) 12.7 % (13-45); MEAN CORPUSCULAR HEMOGLOBIN 31.3 pg (27.0-33.4); MEAN CORPUSCULAR HGB CONC 33.6 g/dL (32.0-36.0); MEAN CORPUSCULAR VOLUME 93 fl (80-97); MONOCYTES % (AUTO) 3.5 % (3-13); PLATELET COUNT 316 10^3/uL (150-450); RED BLOOD COUNT 3.29 10^6/uL (4.35-5.55); RED CELL DISTRIBUTION WIDTH 15.5 % (11.5-14.0); SEGMENTED NEUTROPHILS % (AUTO) 81.7 % (42-78); TOTAL CELLS COUNTED % (AUTO) 100 %; WHITE BLOOD COUNT 7.2 10^3/uL (4.0-10.5)
== END ==
LOC: OD 15:54
PROVIDERS: ATTEND Internal Medicine Gastroenterology
DX: K50.10 Crohn's disease of large intestine without complications (principal)
CPT/HCPCS: 36415; 85025

== ENCOUNTER → 2018-08-15 | Outpatient (CLI) | payer MEDICARE, OTHER ==
[2018-08-15 16:39] LABS: ABSOLUTE EOSINOPHILS # (AUTO) 0.1 10^3/uL (0.0-0.6); ABSOLUTE LYMPHOCYTES (AUTO) 0.7 10^3/uL (0.5-4.7); ABSOLUTE MONOCYTES (AUTO) 0.2 10^3/uL (0.1-1.4); ABSOLUTE NEUT (AUTO) 4.3 10^3/uL (1.7-8.2); BASOPHILS % (AUTO) 0.6 % (0-2); EOSINOPHILS % (AUTO) 1.9 % (0-6); HEMATOCRIT 29.3 % (37.9-51.0); LYMPHOCYTES % (AUTO) 13.6 % (13-45); MEAN CORPUSCULAR HEMOGLOBIN 32.2 pg (27.0-33.4); MEAN CORPUSCULAR HGB CONC 34.3 g/dL (32.0-36.0); MEAN CORPUSCULAR VOLUME 94 fl (80-97); MONOCYTES % (AUTO) 3.5 % (3-13); PLATELET COUNT 147 10^3/uL (150-450); RED BLOOD COUNT 3.12 10^6/uL (4.35-5.55); RED CELL DISTRIBUTION WIDTH 16.4 % (11.5-14.0); SEGMENTED NEUTROPHILS % (AUTO) 80.4 % (42-78); TOTAL CELLS COUNTED % (AUTO) 100 %; WHITE BLOOD COUNT 5.4 10^3/uL (4.0-10.5)
== END ==
LOC: OD 15:23
PROVIDERS: ATTEND Internal Medicine Gastroenterology
DX: K50.10 Crohn's disease of large intestine without complications (principal)
CPT/HCPCS: 36415; 85025

== ENCOUNTER → 2018-08-23 | Outpatient (CLI) | payer MEDICARE, OTHER ==
[2018-08-23 12:39] LABS: ABSOLUTE EOSINOPHILS # (AUTO) 0.1 10^3/uL (0.0-0.6); ABSOLUTE LYMPHOCYTES (AUTO) 0.7 10^3/uL (0.5-4.7); ABSOLUTE MONOCYTES (AUTO) 0.2 10^3/uL (0.1-1.4); ABSOLUTE NEUT (AUTO) 2.9 10^3/uL (1.7-8.2); ABSOLUTE RETICS # 0.028 10^6/uL (0.028-0.122); BASOPHILS % (AUTO) 0.6 % (0-2); EOSINOPHILS % (AUTO) 2.2 % (0-6); HEMATOCRIT 27.8 % (37.9-51.0); HEMOGLOBIN 9.6 g/dL (13.5-17.0); LYMPHOCYTES % (AUTO) 18.4 % (13-45); MEAN CORPUSCULAR HEMOGLOBIN 33.2 pg (27.0-33.4); MEAN CORPUSCULAR HGB CONC 34.7 g/dL (32.0-36.0); MEAN CORPUSCULAR VOLUME 96 fl (80-97); MONOCYTES % (AUTO) 5.5 % (3-13); PLATELET COUNT 261 10^3/uL (150-450); RED CELL DISTRIBUTION WIDTH 17.8 % (11.5-14.0); RETICULOCYTE COUNT (AUTO) 0.97 % (0.66-2.85); SEGMENTED NEUTROPHILS % (AUTO) 73.3 % (42-78); TOTAL CELLS COUNTED % (AUTO) 100 %; WHITE BLOOD COUNT 3.9 10^3/uL (4.0-10.5)
== END ==
LOC: OD 12:02
PROVIDERS: ATTEND Internal Medicine Gastroenterology
DX: D64.9 Anemia, unspecified (principal)
CPT/HCPCS: 36415; 83540; 85025; 85045

== ENCOUNTER → 2018-10-08 | Outpatient (CLI) | payer MEDICARE, OTHER ==
[2018-10-08 11:44] LABS: HEMATOCRIT 30.9 % (37.9-51.0); HEMOGLOBIN 10.5 g/dL (13.5-17.0); MEAN CORPUSCULAR HEMOGLOBIN 33.2 pg (27.0-33.4); MEAN CORPUSCULAR VOLUME 98 fl (80-97); PLATELET COUNT 130 10^3/uL (150-450); RED BLOOD COUNT 3.16 10^6/uL (4.35-5.55); RED CELL DISTRIBUTION WIDTH 17.6 % (11.5-14.0); WHITE BLOOD COUNT 5.1 10^3/uL (4.0-10.5)
== END ==
LOC: OD 10:57
PROVIDERS: ATTEND Internal Medicine Gastroenterology
DX: D64.9 Anemia, unspecified (principal)
CPT/HCPCS: 36415; 85027

== ENCOUNTER → 2018-12-10 | Outpatient (CLI) | payer MEDICARE, OTHER ==
[2018-12-10 12:52] LABS: HEMATOCRIT 33.7 % (37.9-51.0); HEMOGLOBIN 11.6 g/dL (13.5-17.0); MEAN CORPUSCULAR HEMOGLOBIN 32.3 pg (27.0-33.4); MEAN CORPUSCULAR HGB CONC 34.4 g/dL (32.0-36.0); MEAN CORPUSCULAR VOLUME 94 fl (80-97); PLATELET COUNT 157 10^3/uL (150-450); RED BLOOD COUNT 3.58 10^6/uL (4.35-5.55); WHITE BLOOD COUNT 5.8 10^3/uL (4.0-10.5)
== END ==
LOC: OD 11:26
PROVIDERS: ATTEND Internal Medicine Gastroenterology
DX: K50.10 Crohn's disease of large intestine without complications (principal)
CPT/HCPCS: 36415; 85027

== ENCOUNTER → 2019-04-22 | Outpatient (CLI) | payer MEDICARE, OTHER ==
--- NOTE | 2019-04-22 18:17 | XCELERA REPORT ---
[address] [address] Transthoracic Echocardiogram Report Name: PRINCE ESQUIVEL Age: 78 yrs Gender: Male : 1940 Patient Status: Outpatient Patient Location: Study Date: 04/22/2019 01:56 PM Height: 75 in Weight: 270 lb BSA: 2.5 m2 Procedure: A complete two-dimensional transthoracic echocardiogram was performed (2D, M-mode, spectral and color flow Doppler). The study was technically difficult with many images being suboptimal in quality. Reason For Study: SOB Ordering Physician: CONNER GRIMM Performed By: Shari Betancourt Interpretation Summary Left ventricular systolic function is low normal. The left ventricle is grossly normal size. There is borderline concentric left ventricular hypertrophy. LV diastolic function could not be adequately assessed due to atrial fibrilation. Regional wall motion abnormalities cannot be excluded due to limited visualization. The right ventricle is mildly dilated. The right ventricular systolic function is borderline reduced. The right atrium is mild to moderately dilated. The left atrial size is normal. There is no mitral valve stenosis. There is a mild amount of mitral regurgitation There is no aortic valve stenosis No aortic regurgitation is present. There is a mild amount of tricuspid regurgitation There is moderate to severe pulmonary hypertension by echo The pulmonic valve is not well visualized. The aortic root is not well visualized but is probably normal size. The inferior vena cava appeared normal and decreased > 50% with respiration (RAP 5-10 mmHg) There is no pericardial effusion. MMode/2D Measurements & Calculations RVDd: 4.3 cm LVIDd: 5.8 cm FS: 35.7 % Ao root diam: 4.0 cm IVSd: 0.99 cm LVIDs: 3.7 cm EDV(Teich): 167.3 ml Ao root area: 12.3 cm2 LVPWd: 0.99 cm ESV(Teich): 59.5 ml LA dimension: 3.9 cm EF(Teich): 64.4 % Doppler Measurements & Calculations MV E max neva: MV P1/2t max neva: Ao V2 max: LV V1 max P.4 cm/sec 111.5 cm/sec 133.8 cm/sec 2.5 mmHg MV A max neva: MV P1/2t: 77.3 msec Ao max P.2 mmHg LV V1 max: 91.3 cm/sec MVA(P1/2t): 2.8 cm2 79.8 cm/sec MV E/A: 0.95 MV dec slope: LV dP/dt: 699.0 mmHg/s 422.3 cm/sec2 MV dec time: 0.17 sec PA V2 max: TR max neva: MV P1/2t-pr_phl: 69.6 cm/sec 361.1 cm/sec 77.3 msec PA max PG: TR max P.1 mmHg 1.9 mmHg Left Ventricle The left ventricle is grossly normal size. There is borderline concentric left ventricular hypertrophy. Left ventricular systolic function is low normal. LV diastolic function could not be adequately assessed due to atrial fibrilation. Regional wall motion abnormalities cannot be excluded due to limited visualization. Right Ventricle The right ventricle is mildly dilated. There is normal right ventricular wall thickness. The right ventricular systolic function is borderline reduced. Atria The right atrium is mild to moderately dilated. The left atrial size is normal. Interarterial septum not well visualized and not well dopplered. Cannot comment on ASD/PFO presence. Mitral Valve The mitral valve is grossly normal. There is no mitral valve stenosis. There is a mild amount of mitral regurgitation. Aortic Valve The aortic valve is mildly calcified. There is no aortic valve stenosis. No aortic regurgitation is present. Tricuspid Valve The tricuspid valve is not well visualized, but is grossly normal. There is no tricuspid stenosis. There is a mild amount of tricuspid regurgitation. There is moderate to severe pulmonary hypertension by echo. Pulmonic Valve The pulmonic valve is not well visualized. Great Vessels The aortic root is not well visualized but is probably normal size. The inferior vena cava appeared normal and decreased > 50% with respiration (RAP 5-10 mmHg). Effusions There is no pericardial effusion. Incidental Findings Pacemaker wire noted. : CONNER GRIMM Shyamal
== END ==
LOC: SP 13:41
PROVIDERS: ATTEND Internal Medicine Clinical Cardiac Electrophysiology
DX: I48.91 Unspecified atrial fibrillation (principal); R06.02 Shortness of breath
CPT/HCPCS: 93306

== ENCOUNTER 2019-06-29 11:22 | Emergency (ER) | payer MEDICARE, OTHER ==
[2019-06-29 11:28] VITALS: BP 150/74
[2019-06-29] MEDS ORDERED: ONDANSETRON 4 MG TAB.RAPDIS PO ONE (11:46)
[2019-06-29] MEDS ORDERED: OXYCODONE-ACETAMINOPHEN 5-325 MG TABLET PO ONE (11:46)
--- NOTE | 2019-06-29 12:09 | ER Document Report ---
Entered by BARI ZARAGOZA SCRIBE 06/29/19 1146 Acting as scribe for:SUSHILA DAVILA MD ED Fall - General Chief Complaint: Fall Injury Stated Complaint: FALL/ARM PAIN/RIB PAIN Time Seen by Provider: 06/29/19 11:27 Primary Care Provider: CONNER GRIMM MD [NO LOCAL MD] - Follow up as needed Mode of Arrival: Ambulatory Information source: Patient Notes: This 78 year old male patient presents to the emergency department today with complaints of pain in his left forearm/wrist and left lateral chest wall resulting from a fall yesterday evening. Patient reports that he has chronic left knee pain/weakness and he was not thinking last night and went to step up onto a stool with his left leg first and his leg gave out causing him to fall. Patient fell onto the concrete floor of his garage, landing on the left side of his body. Patient is not on any blood thinning medications other than a daily baby aspirin. TRAVEL OUTSIDE OF THE [place] 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 pylori Musculoskeletal Medical History: Reports Hx Arthritis - KNEES, HX COMPRESSION FX'S Past Surgical History: Reports: Hx Open Heart Surgery - robotic cardiac maze, Hx Orthopedic Surgery - bilat rotator cuff, Hx Pacemaker - Immunizations Hx Diphtheria, Pertussis, Tetanus Vaccination: Yes Hx Pneumococcal Vaccination: 03/27/14 Review of Systems - Review of Systems Constitutional: No symptoms reported EENT: No symptoms reported Cardiovascular: No symptoms reported Respiratory: No symptoms reported Gastrointestinal: No symptoms reported Genitourinary: No symptoms reported Male Genitourinary: No symptoms reported Musculoskeletal: See HPI, Other - Left forearm/wrist pain, left sided chest wall pain Skin: No symptoms reported Hematologic/Lymphatic: No symptoms reported Neurological/Psychological: No symptoms reported -: Yes All other systems reviewed and negative Physical Exam - Vital signs Vitals: Temp Pulse Resp BP Pulse Ox 98.1 F 87 16 150/74 H 95 06/29/19 11:06/29/19 11:06/29/19 11:06/29/19 11:06/29/19 11:27 - General General appearance: Appears well, Alert In distress: None - HEENT Head: Normocephalic, Atraumatic Eyes: Normal Conjunctiva: Normal - Respiratory Respiratory status: No respiratory distress Chest status: Tender - point tenderness over the left anteriolateral portion of rib #9 Breath sounds: Normal - Cardiovascular Rhythm: Regular Heart sounds: Normal auscultation Murmur: No - Abdominal Inspection: Obese Distension: No distension Bowel sounds: Normal - Extremities General upper extremity: Other General lower extremity: Edema, Other - Left knee osteoarthritic changes. - Neurological Neuro grossly intact: Yes Cognition: Normal Orientation: AAOx4 Allyn Coma Scale Eye Opening: Spontaneous Allyn Coma Scale Verbal: Oriented Allyn Coma Scale Motor: Obeys Commands Allyn Coma Scale Total: 15 Speech: Normal - Psychological Associated symptoms: Normal affect, Normal mood - Skin Skin Temperature: Warm Skin Moisture: Dry Skin Color: Normal Course - Re-evaluation Re-evalutation: 06/29/19 13:56 The Velcro cock-up splint was placed on the left wrist and forearm. It provides stability and comfort. It fits well. The sling was placed on the left arm to provide support for the extremity. It also fits well. - Vital Signs Vital signs: Temp Pulse Resp BP Pulse Ox 98.1 F 87 16 150/74 H 95 06/29/19 11:06/29/19 11:06/29/19 11:06/29/19 11:06/29/19 11:27 - Diagnostic Test Radiology reviewed: Image reviewed, Reports reviewed - Left rib films do not show fracture. Left distal forearm and wrist do not show fractures. Left proxi mal radial metaphysis shows nondisplaced transverse fracture. Discharge - Discharge Clinical Impression: Interosseous ligament sprain distal forearm Fracture of proximal end of left radius Qualifiers: Encounter type: initial encounter Fracture type: closed Fracture morphology: other fracture Qualified Code(s): S52.182A - Other fracture of upper end of left radius, initial encounter for closed fracture Contusion of rib on left side Qualifiers: Encounter type: initial encounter Qualified Code(s): S20.212A - Contusion of left front wall of thorax, initial encounter Condition: Stable Disposition: HOME, SELF-CARE Additional Instructions: Your evaluation shows an interosseous ligament injury to the distal forearm just above the wrist. There is also a nondisplaced transverse fracture of the proximal radial metaphysis. Use the splint and sling for stability, rest, and comfort. Take pain medication as prescribed if needed. Call Dr. Metcalf at [facility] for surgery Monday at 10 AM to schedule a Monday appointment. RETURN TO THE EMERGENCY ROOM IF ANY NEW OR WORSENING SYMPTOMS. Prescriptions: Oxycodone HCl/Acetaminophen [Percocet 5-325 mg Tablet] 1 tab PO ASDIR PRN #15 tablet PRN Reason: Referrals: CONNER GRIMM MD [NO LOCAL MD] - Follow up as needed ELIF METCALF DO [ACTIVE STAFF] - 07/01/19 (Call the office Monday at 10 AM for an appointment on Monday.) I personally performed the services described in the documentation, reviewed and edited the documentation which was dictated to the scribe in my presence, and it accurately records my words and actions.
--- NOTE | 2019-06-29 12:34 | RADIOLOGY REPORT (SQ) ---
EXAM DESCRIPTION: RIBS LEFT W/PA CHEST IMAGES COMPLETED DATE/TIME: 06/29/2019 11:08 am REASON FOR STUDY: Fall onto concrete,pain distal forearm left ribs COMPARISON: None. TECHNIQUE: Frontal view of the chest and additional views of the left ribs acquired. NUMBER OF VIEWS: Five views LIMITATIONS: None. FINDINGS: FRONTAL CXR: No pneumothorax. No pleural effusion. No atelectasis or infiltrates. RIBS: No displaced rib fractures. No lytic or blastic bony lesions. OTHER: Left infraclavicular pacemaker with intact lead wires. IMPRESSION: NO PNEUMOTHORAX. NO DISPLACED RIB FRACTURES. COMMENT: SITE OF TRAUMA/COMPLAINT MARKED/STAMP COMPLETED: NA TECHNICAL DOCUMENTATION: JOB ID: [id number] 2010 [employer]- All Rights Reserved Reading location - IP/workstation name: [email or web address]
--- NOTE | 2019-06-29 12:43 | RADIOLOGY REPORT (SQ) ---
EXAM DESCRIPTION: FOREARM LEFT COMPLETED DATE/TIME: 06/29/2019 12:08 pm REASON FOR STUDY: Fall onto concrete,pain distal forearm left ribs COMPARISON: None. NUMBER OF VIEWS: Two views. TECHNIQUE: Two radiographic images acquired of the left forearm, including elbow and wrist in at pam st one projection. LIMITATIONS: Limited visualization distal left humerus FINDINGS: MINERALIZATION: Normal. BONES: Acute transverse fracture, left proximal radius metaphysis, nonangulated nondisplaced. Fractu re line may extend into the articular surface of the radius, difficult discern by plain film. Remainder of the radius and ulna are intact. Limited view of the distal humerus in the field of is i ntact. SOFT TISSUES: No obvious swelling or foreign body. OTHER: No other significant finding. IMPRESSION: Acute transverse fracture, left proximal radius metaphysis nonangulated nondisplaced. D ifficult to discern if fracture lines extend into the radial head articular surface TECHNICAL DOCUMENTATION: JOB ID: [id number] 2010 [employer]- All Rights Reserved Reading location - IP/workstation name: [email or web address]
--- NOTE | 2019-06-29 12:52 | RADIOLOGY REPORT (SQ) ---
EXAM DESCRIPTION: WRIST LEFT 3 VIEWS IMAGES COMPLETED DATE/TIME: 06/29/2019 12:08 pm REASON FOR STUDY: Fall onto concrete,pain distal forearm left ribs COMPARISON: None. NUMBER OF VIEWS: Three views. TECHNIQUE: AP, lateral, and oblique radiographic images acquired of the left wrist. LIMITATIONS: None. FINDINGS: MINERALIZATION: Normal. BONES: No acute fracture or dislocation. Normal alignment.Advanced osteoarthritis at the first carpo metacarpal joint SOFT TISSUES: No soft tissue swelling. No foreign body. OTHER: No other significant finding. IMPRESSION: No acute fracture. Advanced osteoarthritis at the 1st carpometacarpal joint TECHNICAL DOCUMENTATION: JOB ID: [id number] 2010 [employer]- All Rights Reserved Reading location - IP/workstation name: [email or web address]
--- NOTE | 2019-06-29 13:14 | RADIOLOGY REPORT (SQ) ---
EXAM DESCRIPTION: ELBOW LEFT OVER 2 VIEWS IMAGES COMPLETED DATE/TIME: 06/29/2019 1:01 pm REASON FOR STUDY: Proximal radial fracture. COMPARISON: Left forearm two views same date NUMBER OF VIEWS: Four views. TECHNIQUE: AP, lateral, and both oblique radiographic images acquired of the left elbow. LIMITATIONS: None. FINDINGS: MINERALIZATION: Normal. BONES: Acute nondisplaced fracture, left proximal radius metaphysis extra-articular. Nonangulated, n ondisplaced. This is best shown on the lateral view, marked with an arrow Proximal ulna, distal humerus intact. JOINT: No effusion. SOFT TISSUES: No soft tissue swelling. No foreign body. OTHER: No other significant finding. IMPRESSION: Acute nondisplaced transverse fracture, left proximal radius metaphysis. TECHNICAL DOCUMENTATION: JOB ID: [id number] 2010 [employer]- All Rights Reserved Reading location - IP/workstation name: [email or web address]
== END 2019-06-29 14:03 | disposition home or self-care (01) ==
LOC: ER 11:22
DX: S52.182A Other fracture of upper end of left radius, initial encounter for closed fracture (principal); S20.212A Contusion of left front wall of thorax, initial encounter; R07.89 Other chest pain; M25.532 Pain in left wrist; W19.XXXA Unspecified fall, initial encounter; Y93.89 Activity, other specified; R60.0 Localized edema; I10 Essential (primary) hypertension; E11.9 Type 2 diabetes mellitus without complications; Z79.82 Long term (current) use of aspirin
CPT/HCPCS: 99283; 73080; 73090; 71101; 73110; A9270 ×2; S0119

== ENCOUNTER 2020-02-03 20:43 | Inpatient (IN) | payer MEDICARE, OTHER ==
[2020-02-03] MEDS ORDERED: PROMETHAZINE HCL 25 MG TABLET PO ONE (22:18)
[2020-02-03] MEDS ORDERED: NORMAL SALINE 1000 ML 1,000 ML IV ONE (22:20)
[2020-02-03] MEDS ORDERED: ONDANSETRON HCL 8 MG TABLET PO ONE (22:20)
[2020-02-03] MEDS ORDERED: MORPHINE SULFATE 10 MG/ML INJ IV ONE (22:20)
[2020-02-03] MEDS ORDERED: ONDANSETRON 4 MG TAB.RAPDIS PO ONE (22:23)
--- NOTE | 2020-02-03 22:27 | ER Document Report ---
ED Medical Screen (RME) - General Chief Complaint: Abdominal Pain Stated Complaint: ABDOMINAL PAIN,NAUSEA Time Seen by Provider: 02/03/20 22:15 Primary Care Provider: ADIA RDZ MD [Primary Care Provider] - Follow up as needed TRAVEL OUTSIDE OF THE [place] IN LAST 30 DAYS: No - HPI Notes: Patient is a 79 y/o male with a hx of pacemaker, DM and HTN who presents with mid epigastric abdominal pain that began earlier this afternoon after eating lunch. Patient states the pain radiates to his back and he endorses lightheadedness, nausea, and vomiting. He denies fever, chest pain and shortness of breath. Patient has a hx of appendectomy. - Related Data Allergies/Adverse Reactions: No Known Allergies Allergy (Verified 02/03/20 21:56) Past Medical History - Social History Frequency of alcohol use: None Drug Abuse: None - Past Medical History Cardiac Medical History: Reports: Hx Atrial Fibrillation - atrial pacemaker, Hx Coronary Artery Disease, Hx Hypercholesterolemia, Hx Hypertension Denies: Hx Heart Attack Pulmonary Medical History: Denies: Hx Asthma, Hx Bronchitis, Hx COPD, Hx Pneumonia Neurological Medical History: Denies: Hx Cerebrovascular Accident, Hx Seizures Endocrine Medical History: Reports: Hx Diabetes Mellitus Type 2 Renal/ Medical History: Denies: Hx Peritoneal Dialysis GI Medical History: Reports: Hx Crohn's Disease, Hx Ulcer - GIB 1980, peptic ulcer tx for H. pylori. Denies: Hx Hepatitis - neg, Hx Hiatal Hernia Musculoskeltal Medical History: Reports Hx Arthritis - KNEES, HX COMPRESSION FX'S Infectious Medical History: Denies: Hx Hepatitis - neg Past Surgical History: Reports: Hx Cardiac Surgery - pacemaker, Hx Open Heart Surgery - robotic cardiac maze, Hx Orthopedic Surgery - bilat rotator cuff, Hx Pacemaker - Immunizations Hx Diphtheria, Pertussis, Tetanus Vaccination: Yes Physical Exam - Vital signs Vitals: Temp Pulse Resp BP Pulse Ox 98.0 F 86 20 139/82 H 97 02/03/20 21:00 02/03/20 21:00 02/03/20 21:00 02/03/20 21:00 02/03/20 21:00 - Abdominal Bowel sounds: Normal Tenderness: Tender - Mid epigastric and RUQ Course - Re-evaluation Re-evalutation: I have greeted and performed a rapid initial assessment of this patient. A comprehensive ED assessment and evaluation of the patient, analysis of test results and completion of medical decision making process will be conducted by an additional ED providers. - Vital Signs Vital signs: Temp Pulse Resp BP Pulse Ox 98.0 F 86 20 139/82 H 97 02/03/20 21:00 02/03/20 21:00 02/03/20 21:00 02/03/20 21:00 02/03/20 21:00 Doctor's Discharge - Discharge Referrals: ADIA RDZ MD [Primary Care Provider] - Follow up as needed
--- NOTE | 2020-02-03 22:40 | EKG REPORT ---
SEVERITY:- ABNORMAL ECG - ATRIAL FIBRILLATION RIGHT BUNDLE BRANCH BLOCK : Confirmed by: Rubi Almanza 03-Feb-2020 22:39:46
[2020-02-03 23:26] LABS: HEMATOCRIT 35.5 % (37.9-51.0); HEMOGLOBIN 12.2 g/dL (13.5-17.0); MEAN CORPUSCULAR HEMOGLOBIN 30.5 pg (27.0-33.4); MEAN CORPUSCULAR HGB CONC 34.3 g/dL (32.0-36.0); MEAN CORPUSCULAR VOLUME 89 fl (80-97); PLATELET COUNT 224 10^3/uL (150-450); RED BLOOD COUNT 3.99 10^6/uL (4.35-5.55); RED CELL DISTRIBUTION WIDTH 12.8 % (11.5-14.0)
[2020-02-03 23:47] LABS: ALBUMIN 3.9 g/dL (3.5-5.0); ALKALINE PHOSPHATASE 147 U/L (38-126); ANION GAP 15 (5-19); ASPARTATE AMINO TRANSFERASE 308 U/L (17-59); BILIRUBIN,DIRECT 1.4 mg/dL (0.0-0.4); BLOOD UREA NITROGEN 36 mg/dL (7-20); CALCIUM 9.8 mg/dL (8.4-10.2); CARBON DIOXIDE 21 mmol/L (22-30); CHLORIDE 100 mmol/L (98-107); GLUCOSE 208 mg/dL (75-110); POTASSIUM 4.3 mmol/L (3.6-5.0); TOTAL PROTEIN 6.7 g/dL (6.3-8.2)
[2020-02-03 23:48] LABS: ABSOLUTE LYMPHOCYTES# (MANUAL) 0.8 10^3/uL (0.5-4.7); ABSOLUTE MONOCYTES # (MANUAL) 0.3 10^3/uL (0.1-1.4); BAND NEUTROPHILS % (MANUAL) 7 % (3-5); BASOPHILS % (MANUAL) 0 % (0-2); EOSINOPHILS % (MANUAL) 0 % (0-6); LYMPHOCYTES % (MANUAL) 5 % (13-45); MONOCYTES % (MANUAL) 2 % (3-13); SEGMENTED NEUTROPHILS % (MAN) 86 % (42-78); TOTAL CELLS COUNTED 100
[2020-02-03 23:50] LABS: OVALOCYTES SLIGHT; POIKILOCYTOSIS SLIGHT; SCHISTOCYTES SLIGHT; TOXIC GRANULATION 1+
[2020-02-03 23:55] LABS: PLATELET COMMENT ADEQUATE
[2020-02-04] MEDS ORDERED: METOCLOPRAMIDE HCL INJ/PF 10 MG/2 ML SDV IV ONE (07:00)
[2020-02-04] MEDS ORDERED: MORPHINE SULFATE 10 MG/ML INJ IV ONE ×3 (07:01→11:25)
[2020-02-04] MEDS ORDERED: NORMAL SALINE 1000 ML 1,000 ML IV ONE ×3 (07:02→11:25)
--- NOTE | 2020-02-04 07:09 | ER Document Report ---
ED General - General Chief Complaint: Abdominal Pain Stated Complaint: ABDOMINAL PAIN,NAUSEA Time Seen by Provider: 02/03/20 22:15 Primary Care Provider: ADIA RDZ MD [Primary Care Provider] - Follow up as needed TRAVEL OUTSIDE OF THE [place] 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 Patient states the pain radiates to his back and he endorses lightheadedness, nausea, and vomiting. He denies fever, chest pain and shortness of breath. Patient has a hx of appendectomy. Patient currently rates his pain 8/10 intensity and localizes this to mid epigastrium with radiation to center of back. Patient does not consume alcohol. He is a former cigarette smoker. He has no known history of gallbladder liver disease and no history of pancreatitis. He does have a history of Crohn's disease. - Related Data Allergies/Adverse Reactions: No Known Allergies Allergy (Verified 02/03/20 21:56) Past Medical History - General Information source: Patient, Relative, [facility] Records - Social History Smoking Status: Former Smoker Frequency of alcohol use: None Drug Abuse: None Family History: Reviewed & Not Pertinent - Past Medical History Cardiac Medical History: Reports: Hx Atrial Fibrillation - atrial pacemaker, Hx Coronary Artery Disease, Hx Hypercholesterolemia, Hx Hypertension Denies: Hx Heart Attack Pulmonary Medical History: Denies: Hx Asthma, Hx Bronchitis, Hx COPD, Hx Pneumonia Neurological Medical History: Denies: Hx Cerebrovascular Accident, Hx Seizures Endocrine Medical History: Reports: Hx Diabetes Mellitus Type 2 Renal/ Medical History: Denies: Hx Peritoneal Dialysis GI Medical History: Reports: Hx Crohn's Disease, Hx Ulcer - GIB 1980, peptic ulcer tx for H. pylori. Denies: Hx Hepatitis - neg, Hx Hiatal Hernia Musculoskeletal Medical History: Reports Hx Arthritis - KNEES, HX COMPRESSION FX'S Infectious Medical History: Denies: Hx Hepatitis - neg Past Surgical History: Reports: Hx Cardiac Surgery - pacemaker, Hx Open Heart Surgery - robotic cardiac maze, Hx Orthopedic Surgery - bilat rotator cuff, Hx Pacemaker - Immunizations Hx Diphtheria, Pertussis, Tetanus Vaccination: Yes Hx Pneumococcal Vaccination: 03/27/14 Review of Systems - Review of Systems Notes: Constitutional: Negative for fever. HENT: Negative for sore throat. Eyes: Negative for visual changes. Cardiovascular: Negative for chest pain. Respiratory: Negative for shortness of breath. Gastrointestinal: As per HPI. Genitourinary: Negative for dysuria. Musculoskeletal: Negative for back pain. Skin: Negative for rash. Neurological: Negative for headaches, weakness or numbness. 10 point ROS negative except as marked above and in HPI. Physical Exam - Vital signs Vitals: Temp Pulse Resp BP Pulse Ox 98.0 F 86 20 139/82 H 97 02/03/20 21:00 02/03/20 21:00 02/03/20 21:00 02/03/20 21:00 02/03/20 21:00 - Notes Notes: GENERAL: Well-developed well-nourished appearing in moderate discomfort. SKIN: Mild jaundice. Good turgor no rashes. HEAD: Normocephalic atraumatic. EYES: Eyes appear mildly sunken consistent with dehydration. PERRLA. EOMI. mild scleral icterus. EARS: CANALS AND TMS CLEAR. NOSE: CLEAR. MOUTH: Dry oral mucosa. Good dentition. No stridor or edema. No drooling. NECK: Supple. No masses or thyromegaly. No adenopathy. Carotids 2+ without bruits. No JVD. BACK: Symmetrical without tenderness. CHEST: Pacemaker left anterior chest wall. Respirations unlabored. Breath sounds clear and symmetrical. HEART: Irregular rhythm. No murmur gallop or rub. ABDOMEN: Soft mildly tender epigastrium and low midline abdomen without masses, organomegaly or rebound. Bowel sounds normally active. No bruits. GENITALIA: Deferred. EXTREMITIES: No edema. No calf tenderness. Cap refill less than 1.5 seconds. Dorsalis pedis and posterior tibial pulses 3+ and symmetrical. NEUROLOGICAL: GCS 15. Alert and oriented x3. Fluent speech. Cranial nerves II through XII intact. Sensorimotor and cerebellar normal. Normal tone. PSYCHIATRIC: Appropriate affect. Course - Re-evaluation Re-evalutation: 02/04/20 07:10 We will keep patient n.p.o. and hydrate him with normal saline. He is getting morphine for pain and Reglan for nausea. Gallbladder ultrasound is been r equested. Patient's white count is elevated 16,000. He has a markedly elevated lipase at 55,000. He has evidence of new acute kidney injury with a creatinine of 2.0. His transaminases are elevated and his bili is 2.0 suggesting possibility of ductal obstruction. I told patient and his that there is a significant likelihood he will need transfer elsewhere for further care to include ERCP. Preliminary findings have been discussed with the on-call surgeon Dr. Herzog. 02/04/20 10:06 Patient's pain is well controlled at this time. He is no longer complaining of nausea. His gallbladder ultrasound showed multiple stones present but no obvious ductal dilatation. Noncontrast CT abdomen/pelvis shows presence of multiple gallstones and edema of the pancreas consistent with acute pancre atitis. I feel this man will need MRCP. Unfortunately has a pacemaker. Patient states his pacemaker is a 1.5 torr and he has been told he could have an MRCP. I discussed this with our radiologist and electronic systems technician covering MRCP and they indicate that we do not have the necessary monitoring equipment here to do this safely. Alternative would be to have an ERCP. We do not currently have any physician welcome wagon hostess here who can do an ERCP. Patient indicates that he has been treated by Dr. Mauro Colmenares with GI at [facility] in [facility]. I have placed a call to Dr. Colmenares to see if he can provide such services. I have advised patient as to current findings and process. 02/04/20 11:46 Case was presented to Dr. Colmenares's midlevel provider. They do not have anyone locally who can do an ERCP. They recommended that we try to transfer this man to a tertiary care center. I spoke with the patient about his preferences and he requested initially [facility] at [facility] and declined transfer. Second choice was [facility]. We are awaiting a callback from their travel freight and passenger agent welcome wagon hostess. Patient remains hemodynamically stable and is relatively comfortable at this time with additional IV fluids being administered and he is got an additional dose of morphine IV. 02/04/20 12:05 I had paged a local travel freight and passenger agent Dr. David Stevenson earlier and he had now returned my call. He indicates he will see the patient for consultation after he is admitted to the inpatient service. I spoke with Dr. Duron who will admit to IMCU I have placed a consult stat for Dr. Stevenson - Vital Signs Vital signs: Temp Pulse Resp BP Pulse Ox 97.9 F 86 23 H 121/56 L 97 02/04/20 08:06 02/03/20 21:00 02/04/20 11:01 02/04/20 10:01 02/04/20 11:01 - Laboratory Result Diagrams: 02/03/20 23:05 02/03/20 23:05 Laboratory results interpreted by me: 02/03/20 02/03/20 02/04/20 23:05 23:05 10:10 WBC 16.0 H RBC 3.99 L Hgb 12.2 L Hct 35.5 L Seg Neuts % (Manual) 86 H Band Neutrophils % 7 H Lymphocytes % (Manual) 5 L Monocytes % (Manual) 2 L Abs Neuts (Manual) 14.9 H Sodium 135.5 L Carbon Dioxide 21 L BUN 36 H Creatinine 2.00 H Est GFR ( Amer) 39 L Est GFR (MDRD) Non-Af 32 L Glucose 208 H Total Bilirubin 2.0 H Direct Bilirubin 1.4 H AST 308 H ALT 168 H Alkaline Phosphatase 147 H Lipase 98904.9 H Urine Protein 30 H Urine Urobilinogen 2.0 H - Diagnostic Test Radiology reviewed: Image reviewed, Reports reviewed Radiology results interpreted by me: 02/04/20 10:38 Abdomen/Pelvis CT 02/03/20 22:15 IMPRESSION: 1. Inflammatory changes adjacent to the head of the pancreas and proximal duodenum. Main differentials are pancreatitis or peptic ulcer disease. Correlation with serum lipase is recommended. 2. Cholelithiasis. Abdomen Ultrasound 02/04/20 07:01 IMPRESSION: Cholelithiasis. No evidence of acute cholecystitis. Chest X-Ray 02/04/20 07:50 IMPRESSION: NO ACUTE RADIOGRAPHIC FINDING IN THE CHEST. - EKG Interpretation by Me Additional EKG results interpreted by me: 02/04/20 07:51 Twelve-lead EKG reviewed by me contemporaneously: 2130 hrs. Indication for study: Atrial fibrillation Rhythm: Atrial fibrillation Rate: Ventricular rate 75 Intervals: QRS interval 132 ms QRS axis: -[address]/T wave changes: None Comparison with prior tracing: Interval development of right bundle branch block and previously paced rhythm has been replaced by atrial fibrillation Interpretation: Atrial fibrillation with controlled ventricular rate. Right bundle branch block. Discharge - Discharge Clinical Impression: Dehydration, Acute kidney injury Acute pancreatitis Qualifiers: Pancreatitis type: biliary Acute pancreatitis complication: unspecified Qualified Code(s): K85.10 - Biliary acute pancreatitis without necrosis or infection Cholelithiasis Qualifiers: Cholelithiasis location: gallbladder Cholecystitis presence: without cholecystitis Biliary obstruction: with biliary obstruction Qualified Code(s): K80.21 - Calculus of gallbladder without cholecystitis with obstruction Condition: Fair Disposition: ADMITTED INPATIENT Admitting Provider: Oliverio (Hospitalist) Unit Admitted: IMCU Referrals: ADIA RDZ MD [Primary Care Provider] - Follow up as needed
--- NOTE | 2020-02-04 08:53 | RADIOLOGY REPORT (SQ) ---
EXAM DESCRIPTION: CT ABD/PELVIS NO ORAL OR IV IMAGES COMPLETED DATE/TIME: 02/04/2020 7:48 am REASON FOR STUDY: EPI-GASTRIC PAIN COMPARISON: None. TECHNIQUE: CT scan of the abdomen and pelvis performed without intravenous or oral contrast. Images reviewed with lung, soft tissue, and bone windows. Reconstructed coronal and sagittal MPR images revi ewed. All images stored on PACS. All CT scanners at this facility use dose modulation, iterative reconstruction, and/or weight based d osing when appropriate to reduce radiation dose to as low as reasonably achievable (ALARA). [facility]: Dose Right [facility]: CareDose [facility]: Dose Right [facility]: Teradose 4D [facility]: Smart PocketFM Limited RADIATION DOSE: CT Rad equipment meets quality standard of care and radiation dose reduction techniq ues were employed. CTDIvol: 17.8 mGy. DLP: 1113 mGy-cm.mGy. LIMITATIONS: None. FINDINGS: LOWER CHEST: Pacemaker. NON-CONTRASTED LIVER, SPLEEN, ADRENALS: Evaluation limited by lack of IV contrast. No identified sign ificant masses. PANCREAS: Subtle inflammatory changes adjacent to the head of the pancreas and proximal duodenum. No ductal dilatation. GALLBLADDER: Gallstones. No inflammatory changes to suggest cholecystitis. RIGHT KIDNEY AND URETER: No suspicious masses. Assessment limited by lack of IV contrast. No signif icant calcifications. No hydronephrosis or hydroureter. LEFT KIDNEY AND URETER: No suspicious masses. Assessment limited by lack of IV contrast. No signifi cant calcifications. No hydronephrosis or hydroureter. AORTA AND RETROPERITONEUM: No aneurysm. No retroperitoneal masses or adenopathy. BOWEL AND PERITONEAL CAVITY: Diverticulosis. No obvious masses or inflammatory changes. No free flui d. APPENDIX: Not visualized. PELVIS, BLADDER, AND ABDOMINAL WALL:No abnormal masses. No free fluid. Bladder normal. BONES: Nothing acute. OTHER: No other significant finding. IMPRESSION: 1. Inflammatory changes adjacent to the head of the pancreas and proximal duodenum. Main differentia ls are pancreatitis or peptic ulcer disease. Correlation with serum lipase is recommended. 2. Cholelithiasis. COMMENT: Quality ID # [id number]: Final reports with documentation of one or more dose reduction techniques (e.g., Automated exposure control, adjustment of the mA and/or kV according to patient size, use of iterative reconstruction technique) TECHNICAL DOCUMENTATION: JOB ID: [id number] 2010 [employer]- All Rights Reserved Reading location - IP/workstation name: [email or web address]
--- NOTE | 2020-02-04 09:01 | RADIOLOGY REPORT (SQ) ---
EXAM DESCRIPTION: CHEST SINGLE VIEW IMAGES COMPLETED DATE/TIME: 02/04/2020 8:22 am REASON FOR STUDY: Atrial fibrillation COMPARISON: 07/17/2018 EXAM PARAMETERS: NUMBER OF VIEWS: One view. TECHNIQUE: Single frontal radiographic view of the chest acquired. RADIATION DOSE: NA LIMITATIONS: None. FINDINGS: LUNGS AND PLEURA: Chronic scarring in the left base. No evidence of pulmonary edema or pn eumonia. MEDIASTINUM AND HILAR STRUCTURES: No masses. Contour normal. HEART AND VASCULAR STRUCTURES: Heart normal in size. Normal vasculature. BONES: No acute findings. HARDWARE: Pacemaker. OTHER: No other significant finding. IMPRESSION: NO ACUTE RADIOGRAPHIC FINDING IN THE CHEST. TECHNICAL DOCUMENTATION: JOB ID: [id number] 2010 [employer]- All Rights Reserved Reading location - IP/workstation name: [email or web address]
--- NOTE | 2020-02-04 09:25 | RADIOLOGY REPORT (SQ) ---
EXAM DESCRIPTION: U/S ABDOMEN LIMITED W/O DOP IMAGES COMPLETED DATE/TIME: 02/04/2020 8:56 am REASON FOR STUDY: jaundice/abd. pain COMPARISON: None. TECHNIQUE: Dynamic and static grayscale images acquired of the abdomen and recorded on PACS. Additio nal selected color Doppler and spectral images recorded. LIMITATIONS: Limited visualization. Poor acoustical window FINDINGS: PANCREAS: Obscured. LIVER: Normal size Mild fatty infiltration. No focal masses. LIVER VASCULATURE: Normal directional flow of the main portal vein and hepatic veins. GALLBLADDER: Gallstone(s). No pericholecystic fluid. No wall thickening. ULTRASOUND-DETECTED GILMORE'S SIGN: Patient medicated. INTRAHEPATIC DUCTS AND COMMON DUCT: CBD and intrahepatic ducts normal caliber. No filling defects. INFERIOR VENA CAVA: Normal flow. AORTA: No aneurysm. RIGHT KIDNEY: Normal size. Normal echogenicity. No solid or suspicious masses. No hydronephros is. No calcifications. PERITONEAL AND RIGHT PLEURAL SPACE: No ascites or effusions. OTHER: No other significant findings. IMPRESSION: Cholelithiasis. No evidence of acute cholecystitis. TECHNICAL DOCUMENTATION: JOB ID: [id number] [employer]- All Rights Reserved Reading location - IP/workstation name: [email or web address]
[2020-02-04 10:40] LABS: APPEARANCE,URINE CLOUDY; BILIRUBIN,URINE NEGATIVE (NEGATIVE); CALCIUM OXALATE CRYSTALS,URINE FEW /HPF; COLOR,URINE AMBER; GLUCOSE, URINE NEGATIVE (NEGATIVE); KETONES,URINE NEGATIVE (NEGATIVE); LEUKOCYTE ESTERASE,URINE NEGATIVE (NEGATIVE); NITRITE,URINE NEGATIVE (NEGATIVE); PROTEIN,URINE 30 mg/dL (NEGATIVE); URINE SPECIFIC GRAVITY 1.018
[2020-02-04] MEDS ORDERED: IPRATROPIUM/ALBUTEROL 0.5-2.5 MG/3 ML AMPUL NEB PRN (12:46)
[2020-02-04] MEDS ORDERED: ACETAMINOPHEN 325 MG TABLET PO PRN (12:46)
[2020-02-04] MEDS ORDERED: GLUCAGON,HUMAN RECOMB 1 MG INJ IM PRN (12:51)
[2020-02-04] MEDS ORDERED: DEXTROSE 50%-WATER 25 GM/50 ML DISP.SYRIN IV PRN ×2 (12:51)
[2020-02-04] MEDS ORDERED: DEXTROSE 40% GEL 15 GM TUBE PO PRN ×2 (12:51)
[2020-02-04] MEDS: CEFTRIAXONE 1 GM/D5W RTU 1 GM/50 ML RTUPB IV SCH (13:23)
[2020-02-04] MEDS: NORMAL SALINE 1000 ML 1,000 ML IV PRN ×2 (13:30→18:35)
[2020-02-04] MEDS: HEPARIN SOD (PORCINE) 5,000 UNIT/ML 1 ML VIAL SUBCUT SCH ×2 (14:17→22:07)
[2020-02-04] MEDS: ONDANSETRON HCL INJ/PF 4 MG/2 ML SDV IV PRN (15:45)
[2020-02-04] MEDS: MORPHINE SULFATE 10 MG/ML INJ IV PRN ×2 (15:45→22:08)
--- NOTE | 2020-02-04 16:49 | PDOC CONSULTATION ---
Consultation Consult Date: 02/04/20 Provider Consulted: HATTIE MITCHELL Consult reason:: Right upper quadrant pain History of Present Illness Admission Date/PCP: 02/04/20 12:59 ADIA RDZ MD History of Present Illness: PRINCE ESQUIVEL is a 79 year old male, obese, history of hypertension, controlled a trial fibrillation, status post noninvasive cardiac procedure x2, status post pacemaker placement, Crohn's disease well controlled, type 2 diabetes who presents to the emergency room with a 24-hour complaint of right upper quadrant pain epigastric pain associated with nausea and emesis. An ultrasound of the gallbladder reveals cholelithiasis without inflammatory changes; a CT scan of the abdomen pelvis reveals a moderate change of the head of the pancreas. Blood work shows a mild leukocytosis of 16,000, transaminitis and elevation of alkaline phosphatase, hyperbilirubinemia 2.0 mostly direct 1.4, and elevation of the lipase 56,000. Past Medical History Cardiac Medical History: Reports: Atrial Fibrillation - atrial pacemaker, Coronary Artery Disease, Hyperlipidema, Hypertension Denies: Myocardial Infarction Pulmonary Medical History: Denies: Asthma, Bronchitis, Chronic Obstructive Pulmonary Disease (COPD), Pneumonia Neurological Medical History: Denies: Seizures Endocrine Medical History: Reports: Diabetes Mellitus Type 2 GI Medical History: Reports: Crohn's Disease Denies: Hepatitis - neg, Hiatal Hernia Musculoskeltal Medical History: Reports: Arthritis - KNEES, HX COMPRESSION FX'S Hematology: Reports: Anemia - GIB after ablation, Denies: Sickle Cell Disease Past Surgical History Past Surgical History: Reports: Orthopedic Surgery - bilat rotator cuff, Pacemaker Social History Smoking Status: Former Smoker Family History Family History: Reviewed & Not Pertinent Parental Family History Reviewed: No Children Family History Reviewed: No Sibling(s) Family History Reviewed.: No Medication/Allergy Home Medications: Lisinopril [Prinivil 2.5 mg Tablet] 2.5 mg PO DAILY 12/16/11 Metformin HCl 850 mg PO BID 12/16/11 Alfuzosin HCl [Uroxatral] 10 mg PO DAILY 12/30/14 Cholecalciferol (Vitamin D3) [Vitamin D3 2000 unit Tablet] 2,000 unit PO DAILY 12/30/14 Cyanocobalamin (Vitamin B-12) [Vitamin B-12 1000 mcg Tablet] 1,000 mcg PO DAILY 12/30/14 Furosemide [Lasix 40 mg Tablet] 40 mg PO DAILY 12/30/14 Glucosam/Chond-Msm1/C/Wilian/Bor [Ydrnrzh-Cgprs-PUI Complex Cplt] 1 tab PO BID 12/30/14 Loratadine [Claritin] 10 mg PO DAILY PRN 12/30/14 Red Yeast Rice 600 mg PO DAILY 12/30/14 Tebs 1 tab PO BID 12/30/14 Pravastatin Sodium [Pravachol] 10 mg PO QPM 06/01/16 Aspirin [Adult Low Dose Aspirin EC] 81 mg PO DAILY 02/04/20 Finasteride [Proscar 5 mg Tablet] 5 mg PO DAILY 02/04/20 Fluticasone Propionate [Flonase Nasal [place] 50 Mcg/[place] 16 gm] 2 spray NASL DAILYP PRN 02/04/20 Ranitidine HCl [Zantac] 150 mg PO BIDP PRN 02/04/20 Ustekinumab [Stelara] 90 mcg SQ .[id number] 02/04/20 Allergies/Adverse Reactions: No Known Allergies Allergy (Verified 02/03/20 21:56) Physical Exam Vital Signs: Temp Pulse Resp BP Pulse Ox 98.4 F 86 26 H 98/84 L 95 02/04/20 12:01 02/03/20 21:00 02/04/20 16:01 02/04/20 16:01 02/04/20 16:01 Intake & Output 02/03/20 02/04/20 02/05/20 06:59 06:59 06:59 Intake Total 2290 Balance 2290 Weight 118.841 kg General appearance: PRESENT: no acute distress, obese Eye exam: PRESENT: EOMI Mouth exam: PRESENT: moist, neck supple Neck exam: PRESENT: full ROM Respiratory exam: PRESENT: clear to auscultation vannesa Cardiovascular exam: PRESENT: RRR GI/Abdominal exam: PRESENT: distended, firm, hypoactive bowel sounds, Tabor's sign - Positive, soft, tenderness - In the epigastrium and right upper quadrant Rectal exam: PRESENT: deferred Extremities exam: PRESENT: full ROM Musculoskeletal exam: PRESENT: full ROM Neurological exam: PRESENT: alert, awake, oriented to time, oriented to situation, CN II-XII grossly intact Psychiatric exam: PRESENT: appropriate affect Skin exam: PRESENT: warm Results Laboratory Results: 02/03/20 23:05 02/03/20 23:05 02/03/20 02/03/20 02/03/20 23:05 23:05 23:05 WBC 16.0 H RBC 3.99 L Hgb 12.2 L Hct 35.5 L MCV 89 MCH 30.5 MCHC 34.3 RDW 12.8 Plt Count 224 Seg Neutrophils % Not Reportable Sodium 135.5 L Potassium 4.3 Chloride 100 Carbon Dioxide 21 L Anion Gap 15 BUN 36 H Creatinine 2.00 H Est GFR ( Amer) 39 L Glucose 208 H Calcium 9.8 Total Bilirubin 2.0 H AST 308 H Alkaline Phosphatase 147 H Total Protein 6.7 Albumin 3.9 Triglycerides 131 Lipase 04288.9 H Urine Color Urine Appearance Urine pH Ur Specific [place] Urine Protein Urine Glucose (UA) Urine Ketones Urine Blood Urine Nitrite Ur Leukocyte Esterase Urine WBC (Auto) Urine RBC (Auto) 02/04/20 10:10 WBC RBC Hgb Hct MCV MCH MCHC RDW Plt Count Seg Neutrophils % Sodium Potassium Chloride Carbon Dioxide Anion Gap BUN Creatinine Est GFR ( Amer) Glucose Calcium Total Bilirubin AST Alkaline Phosphatase Total Protein Albumin Triglycerides Lipase Urine Color [place] Urine Appearance CLOUDY Urine pH 5.0 Ur Specific [place] 1.018 Urine Protein 30 H Urine Glucose (UA) NEGATIVE Urine Ketones NEGATIVE Urine Blood NEGATIVE Urine Nitrite NEGATIVE Ur Leukocyte Esterase NEGATIVE Urine WBC (Auto) 11 Urine RBC (Auto) 3 Impressions: Abdomen/Pelvis CT 02/03/20 22:15 IMPRESSION: 1. Inflammatory changes adjacent to the head of the pancreas and proximal duodenum. Main differentials are pancreatitis or peptic ulcer disease. Correla tion with serum lipase is recommended. 2. Cholelithiasis. Abdomen Ultrasound 02/04/20 07:01 IMPRESSION: Cholelithiasis. No evidence of acute cholecystitis. Chest X-Ray 02/04/20 07:50 IMPRESSION: NO ACUTE RADIOGRAPHIC FINDING IN THE CHEST. Assessment & Plan - Diagnosis (2) Acute pancreatitis Qualifiers: Pancreatitis type: biliary Acute pancreatitis complication: unspecified Qualified Code(s): K85.10 - Biliary acute pancreatitis without necrosis or infection Is this a current diagnosis for this admission?: Yes (3) Cholelithiasis Qualifiers: Cholelithiasis location: gallbladder Cholecystitis presence: without cholecystitis Biliary obstruction: with biliary obstruction Qualified Code(s): K80.21 - Calculus of gallbladder without cholecystitis with obstruction Is this a current diagnosis for this admission?: Yes - Plan Summary Plan Summary: Assessment: Epigastric and right upper quadrant pain Emesis and nausea Cholelithiasis ultrasound CT scan abdomen pelvis significant for inflammation of the head of the pancreas Blood work shows elevated bilirubin 2.0 transaminitis and elevated alkaline phosphatase Lipase 56,000 as per stone pancreatitis Plan: Patient to be admitted by the medical service ERCP as per the gastrointestinal service Laparoscopic cholecystectomy to follow
[2020-02-04 17:04] LABS: INTERNATIONAL RATION (INR) 1.06
[2020-02-04] MEDS ORDERED: METOPROLOL TARTRATE PF/INJ 5 MG/5 ML SDV IV PRN (17:09)
[2020-02-04] MEDS ORDERED: TEMAZEPAM 15 MG CAPSULE PO PRN (17:09)
[2020-02-04] MEDS ORDERED: HYDRALAZINE HCL INJ/PF 20 MG/1 ML SDV IV PRN (17:09)
--- NOTE | 2020-02-04 17:09 | PDOC H&P ---
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 In ED he was noted to have leukocytosis, transaminitis, hyperbilirubinemia, elevated lipase, abdominal CT and ultrasound showed cholelithiasis without inflammatory changes, inflammatory changes adjacent to the head of the pancreas and proximal duodenum. ED physician had consulted Dr. Stevenson plastic shaper and surgery and the recommendation was for patient to be admitted under medicine and they will follow up as consult. Past Medical History Cardiac Medical History: Reports: Atrial Fibrillation - atrial pacemaker, Coronary Artery Disease, Hyperlipidema, Hypertension Denies: Myocardial Infarction Pulmonary Medical History: Denies: Asthma, Bronchitis, Chronic Obstructive Pulmonary Disease (COPD), Pneumonia Neurological Medical History: Denies: Seizures Endocrine Medical History: Reports: Diabetes Mellitus Type 2 GI Medical History: Reports: Crohn's Disease Denies: Hepatitis - neg, Hiatal Hernia Musculoskeltal Medical History: Reports: Arthritis - KNEES, HX COMPRESSION FX'S Hematology: Reports: Anemia - GIB after ablation, Denies: Sickle Cell Disease Past Surgical History Past Surgical History: Reports: Orthopedic Surgery - bilat rotator cuff, Pacemaker Social History Smoking Status: Former Smoker Family History Family History: Reviewed & Not Pertinent Parental Family History Reviewed: Yes Children Family History Reviewed: Yes Sibling(s) Family History Reviewed.: Yes Medication/Allergy Home Medications: Lisinopril [Prinivil 2.5 mg Tablet] 2.5 mg PO DAILY 12/16/11 Metformin HCl 850 mg PO BID 12/16/11 Alfuzosin HCl [Uroxatral] 10 mg PO DAILY 12/30/14 Cholecalciferol (Vitamin D3) [Vitamin D3 2000 unit Tablet] 2,000 unit PO DAILY 12/30/14 Cyanocobalamin (Vitamin B-12) [Vitamin B-12 1000 mcg Tablet] 1,000 mcg PO DAILY 12/30/14 Furosemide [Lasix 40 mg Tablet] 40 mg PO DAILY 12/30/14 Glucosam/Chond-Msm1/C/Wilian/Bor [Zafobac-Liwsp-QAN Complex Cplt] 1 tab PO BID 12/30/14 Loratadine [Claritin] 10 mg PO DAILY PRN 12/30/14 Red Yeast Rice 600 mg PO DAILY 12/30/14 Tebs 1 tab PO BID 12/30/14 Pravastatin Sodium [Pravachol] 10 mg PO QPM 06/01/16 Aspirin [Adult Low Dose Aspirin EC] 81 mg PO DAILY 02/04/20 Finasteride [Proscar 5 mg Tablet] 5 mg PO DAILY 02/04/20 Fluticasone Propionate [Flonase Nasal [place] 50 Mcg/[place] 16 gm] 2 spray NASL DAILYP PRN 02/04/20 Ranitidine HCl [Zantac] 150 mg PO BIDP PRN 02/04/20 Ustekinumab [Stelara] 90 mcg SQ .[id number] 02/04/20 Allergies/Adverse Reactions: No Known Allergies Allergy (Verified 02/03/20 21:56) Review of Systems Review of Systems: as per hpi Physical Exam Vital Signs: Temp Pulse Resp BP Pulse Ox 98.4 F 86 26 H 98/84 L 95 02/04/20 12:01 02/03/20 21:00 02/04/20 16:01 02/04/20 16:01 02/04/20 16:01 Intake & Output 02/03/20 02/04/20 02/05/20 06:59 06:59 06:59 Intake Total 2290 Balance 2290 Weight 118.841 kg General appearance: PRESENT: no acute distress, obese, well-developed, well- nourished Head exam: PRESENT: atraumatic, normocephalic Respiratory exam: PRESENT: clear to auscultation vannesa. ABSENT: rales, rhonchi, wheezes Cardiovascular exam: PRESENT: RRR. ABSENT: diastolic murmur, rubs, systolic murmur GI/Abdominal exam: PRESENT: distended, normal bowel sounds, soft, tenderness. ABSENT: guarding, mass, organolmegaly, rebound Extremities exam: PRESENT: full ROM. ABSENT: calf tenderness, clubbing, pedal edema Neurological exam: PRESENT: alert, awake, oriented to person, oriented to place, oriented to time, oriented to situation, CN II-XII grossly intact. ABSENT: motor sensory deficit Skin exam: PRESENT: dry, intact, warm. ABSENT: cyanosis, rash Results Laboratory Results: 02/03/20 23:05 02/03/20 23:05 02/03/20 02/03/20 02/03/20 23:05 23:05 23:05 WBC 16.0 H RBC 3.99 L Hgb 12.2 L Hct 35.5 L MCV 89 MCH 30.5 MCHC 34.3 RDW 12.8 Plt Count 224 Seg Neutrophils % Not Reportable Sodium 135.5 L Potassium 4.3 Chloride 100 Carbon Dioxide 21 L Anion Gap 15 BUN 36 H Creatinine 2.00 H Est GFR ( Amer) 39 L Glucose 208 H Calcium 9.8 Total Bilirubin 2.0 H AST 308 H Alkaline Phosphatase 147 H Total Protein 6.7 Albumin 3.9 Triglycerides 131 Lipase 01922.9 H Urine Color Urine Appearance Urine pH Ur Specific [place] Urine Protein Urine Glucose (UA) Urine Ketones Urine Blood Urine Nitrite Ur Leukocyte Esterase Urine WBC (Auto) Urine RBC (Auto) 02/04/20 10:10 WBC RBC Hgb Hct MCV MCH MCHC RDW Plt Count Seg Neutrophils % Sodium Potassium Chloride Carbon Dioxide Anion Gap BUN Creatinine Est GFR ( Amer) Glucose Calcium Total Bilirubin AST Alkaline Phosphatase Total Protein Albumin Triglycerides Lipase Urine Color [place] Urine Appearance CLOUDY Urine pH 5.0 Ur Specific [place] 1.018 Urine Protein 30 H Urine Glucose (UA) NEGATIVE Urine Ketones NEGATIVE Urine Blood NEGATIVE Urine Nitrite NEGATIVE Ur Leukocyte Esterase NEGATIVE Urine WBC (Auto) 11 Urine RBC (Auto) 3 Impressions: Abdomen/Pelvis CT 02/03/20 22:15 IMPRESSION: 1. Inflammatory changes adjacent to the head of the pancreas and proximal duodenum. Main differentials are pancreatitis or peptic ulcer disease. Correlation with serum lipase is recommended. 2. Cholelithiasis. Abdomen Ultrasound 02/04/20 07:01 IMPRESSION: Cholelithiasis. No evidence of acute cholecystitis. Chest X-Ray 02/04/20 07:50 IMPRESSION: NO ACUTE RADIOGRAPHIC FINDING IN THE CHEST. Assessment and Plan - Diagnosis (1) Acute gallstone pancreatitis Is this a current diagnosis for this admission?: Yes Plan: History of cholelithiasis, most likely gallstone pancreatitis. Denies any abdominal trauma, malignancy or EtOH abuse. CT abdomen and ultrasound of abdomen positive for cholelithiasis without acute cholecystitis and inflammation of the head of the pancreas. Admit to IMCU, volume resuscitation guided by volume status, pain management with opioid and nonopioid medications, monitor vitals status, monitor electrolytes. May need ERCP followed by cholecystectomy. Surgery and gastroenterology has been consulted. I personally talked to Dr. Stevenson plastic shaper who stated that he will be doing ERCP patient. (2) CAD (coronary artery disease) Qualifiers: Coronary Disease-Associated Artery/Lesion type: [place] artery [place] vs. transplanted heart: [place] heart Is this a current diagnosis for this admission?: Yes Plan: Status post PCI with stent placement. Denies any anginal symptoms. Resume home meds. Hold lisinopril given EMA. Resume lisinopril once kidney function normalizes. (3) Atrial fibrillation Qualifiers: Atrial fibrillation type: permanent Qualified Code(s): I48.21 - Permanent atrial fibrillation Is this a current diagnosis for this admission?: Yes Plan: History of chronic persistent atrial fibrillation. Status post maze procedure pacemaker placement. Resume home meds. Outpatient PCP and cardiology follow-up. (4) Hyperlipidemia Is this a current diagnosis for this admission?: Yes Plan: Resume home meds. Diet and lifestyle modification recommended. Triglycerides WNL. (5) Diabetes Qualifiers: Diabetes mellitus type: type 2 Is this a current diagnosis for this admission?: Yes Plan: Takes metformin at home. Hold metformin given p.o. intolerance and EMA. Diabetic diet, Accu-Chek, sliding scale insulin, long-acting insulin. Hypoglycemia protocol. Resume home meds upon discharge. (6) Cholelithiasis Qualifiers: Cholelithiasis location: gallbladder Cholecystitis presence: without cholecystitis Biliary obstruction: with biliary obstruction Qualified Code(s): K80.21 - Calculus of gallbladder without cholecystitis with obstruction Is this a current diagnosis for this admission?: Yes Plan: History of cholelithiasis. Based on ultrasound findings no acute cholecystitis. Patient will possibly need cholecystectomy post ERCP. Surgery consulted. (7) Crohn's disease Is this a current diagnosis for this admission?: Yes Plan: On remission. Taking his Stelara. Resume home meds. Outpatient PCP and rheumatology follow-up. (8) Leukocytosis Qualifiers: Leukocytosis type: bandemia Qualified Code(s): D72.825 - Bandemia Is this a current diagnosis for this admission?: Yes Plan: Neutrophilic leukocytosis with bandemia. Denies any fever. Ultrasound of abdomen negative for acute cholecystitis. Empiric broad-spectrum IV antibiotics. Blood culture. - Time Time Spent with patient: 35 or more minutes Medications reviewed and adjusted accordingly: Yes Anticipated Discharge Disposition: Home, Self Care Anticipated Discharge Timeframe: within 72 hours
[2020-02-04] MEDS ORDERED: ACETAMINOPHEN 1,000 MG/100 ML RTUPB IV SCH (18:00)
[2020-02-04] MEDS: INSULIN LISPRO 100 UNIT/ML 3 ML VIAL SUBCUT SCH (18:25)
--- NOTE | 2020-02-04 19:41 | PDOC CONSULTATION ---
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 He started having epigastric pain radiating to the back yesterday afternoon. Initially the pain went away after an hour but it came back and remained constant throughout the night. It was associated with some nausea but no vomiting. He has had gallstones for years but has no previous history of pancreatitis or liver disease. On admission his hemoglobin was 12 with a white count of 16 and a left shift, lipase was 56,000, bilirubin 2, AST 308, ALT 168 and alkaline phosphatase of 147. BUN and creatinine were 36 and 2. He has received 3 L of fluid so far and is receiving 200 mL an hour. A CAT scan performed showed subdural inflammatory changes around the head of the pancreas and proximal duodenum. Abdominal ultr asound showed gallstones but no dilated biliary tree. He also has fatty liver. Past Medical History Cardiac Medical History: Reports: Atrial Fibrillation - atrial pacemaker, Coronary Artery Disease, Hyperlipidema, Hypertension Denies: Myocardial Infarction Pulmonary Medical History: Denies: Asthma, Bronchitis, Chronic Obstructive Pulmonary Disease (COPD), Pneumonia Neurological Medical History: Denies: Seizures Endocrine Medical History: Reports: Diabetes Mellitus Type 2 GI Medical History: Reports: Crohn's Disease Denies: Hepatitis - neg, Hiatal Hernia Musculoskeltal Medical History: Reports: Arthritis - KNEES, HX COMPRESSION FX'S Hematology: Reports: Anemia - GIB after ablation, Denies: Sickle Cell Disease Past Surgical History Past Surgical History: Reports: Orthopedic Surgery - bilat rotator cuff, Pacemaker Social History Smoking Status: Former Smoker Family History Family History: Reviewed & Not Pertinent Parental Family History Reviewed: No Children Family History Reviewed: NA Sibling(s) Family History Reviewed.: NA Medication/Allergy Home Medications: Lisinopril [Prinivil 2.5 mg Tablet] 2.5 mg PO DAILY 12/16/11 Metformin HCl 850 mg PO BID 12/16/11 Alfuzosin HCl [Uroxatral] 10 mg PO DAILY 12/30/14 Cholecalciferol (Vitamin D3) [Vitamin D3 2000 unit Tablet] 2,000 unit PO DAILY 12/30/14 Cyanocobalamin (Vitamin B-12) [Vitamin B-12 1000 mcg Tablet] 1,000 mcg PO DAILY 12/30/14 Furosemide [Lasix 40 mg Tablet] 40 mg PO DAILY 12/30/14 Glucosam/Chond-Msm1/C/Wilian/Bor [Pjcocgy-Heuqk-IMA Complex Cplt] 1 tab PO BID 12/30/14 Loratadine [Claritin] 10 mg PO DAILY PRN 12/30/14 Red Yeast Rice 600 mg PO DAILY 12/30/14 Tebs 1 tab PO BID 12/30/14 Pravastatin Sodium [Pravachol] 10 mg PO QPM 06/01/16 Aspirin [Adult Low Dose Aspirin EC] 81 mg PO DAILY 02/04/20 Finasteride [Proscar 5 mg Tablet] 5 mg PO DAILY 02/04/20 Fluticasone Propionate [Flonase Nasal [place] 50 Mcg/[place] 16 gm] 2 spray NASL DAILYP PRN 02/04/20 Ranitidine HCl [Zantac] 150 mg PO BIDP PRN 02/04/20 Ustekinumab [Stelara] 90 mcg SQ .[id number] 02/04/20 Allergies/Adverse Reactions: No Known Allergies Allergy (Verified 02/03/20 21:56) Review of Systems All systems: reviewed and no additional remarkable complaints except as stated Physical Exam Vital Signs: Temp Pulse Resp BP Pulse Ox 97.9 F 86 22 H 117/48 L 94 02/04/20 18:01 02/03/20 21:00 02/04/20 18:01 02/04/20 18:00 02/04/20 18:01 Intake & Output 02/03/20 02/04/20 02/05/20 06:59 06:59 06:59 Intake Total 3313 Balance 3313 Weight 118.841 kg Exam: General: Patient is alert and looks well. HEENT: There is no pallor or jaundice. PERRLA. Oropharynx normal Respiratory: No chest deformity. No respiratory distress. Chest wall palpitation was unremarkable. Breath sounds were normal Cardiovascular: Heart sounds 1 and 2 normal with no murmurs. Abdominal: Not distended. Soft with tenderness in the upper half of the abdomen. There was some guarding but no rebound tenderness. Liver and spleen not palpable. No ascites demonstrated. Bowel sounds active. Rectal examination was deferred. Extremities: No edema Neurological: Alert and oriented x4. Grossly nonfocal. Normal speech Skin: No significant rash Psychological: Normal affect Results Laboratory Results: 02/03/20 23:05 02/03/20 23:05 02/03/20 02/03/20 02/03/20 23:05 23:05 23:05 WBC 16.0 H RBC 3.99 L Hgb 12.2 L Hct 35.5 L MCV 89 MCH 30.5 MCHC 34.3 RDW 12.8 Plt Count 224 Seg Neutrophils % Not Reportable Sodium 135.5 L Potassium 4.3 Chloride 100 Carbon Dioxide 21 L Anion Gap 15 BUN 36 H Creatinine 2.00 H Est GFR ( Amer) 39 L Glucose 208 H Calcium 9.8 Total Bilirubin 2.0 H AST 308 H Alkaline Phosphatase 147 H Total Protein 6.7 Albumin 3.9 Triglycerides 131 Lipase 31664.9 H Urine Color Urine Appearance Urine pH Ur Specific [place] Urine Protein Urine Glucose (UA) Urine Ketones Urine Blood Urine Nitrite Ur Leukocyte Esterase Urine WBC (Auto) Urine RBC (Auto) 02/04/20 10:10 WBC RBC Hgb Hct MCV MCH MCHC RDW Plt Count Seg Neutrophils % Sodium Potassium Chloride Carbon Dioxide Anion Gap BUN Creatinine Est GFR ( Amer) Glucose Calcium Total Bilirubin AST Alkaline Phosphatase Total Protein Albumin Triglycerides Lipase Urine Color [place] Urine Appearance CLOUDY Urine pH 5.0 Ur Specific [place] 1.018 Urine Protein 30 H Urine Glucose (UA) NEGATIVE Urine Ketones NEGATIVE Urine Blood NEGATIVE Urine Nitrite NEGATIVE Ur Leukocyte Esterase NEGATIVE Urine WBC (Auto) 11 Urine RBC (Auto) 3 Impressions: Abdomen/Pelvis CT 02/03/20 22:15 IMPRESSION: 1. Inflammatory changes adjacent to the head of the pancreas and proximal duodenum. Main differentials are pancreatitis or peptic ulcer disease. C orrelation with serum lipase is recommended. 2. Cholelithiasis. Abdomen Ultrasound 02/04/20 07:01 IMPRESSION: Cholelithiasis. No evidence of acute cholecystitis. Chest X-Ray 02/04/20 07:50 IMPRESSION: NO ACUTE RADIOGRAPHIC FINDING IN THE CHEST. Assessment & Plan - Diagnosis (1) Acute gallstone pancreatitis Is this a current diagnosis for this admission?: Yes Plan: His presentation is consistent with gallstone pancreatitis with abnormal liver function test suggestive of choledocholithiasis. The need for an ERCP including the risk and benefit was explained to the patient and his and he is in agreement. Currently we need to manage his acute pancreatitis with the hope of doing his ERCP within the next 1 to 3 days. (2) Fatty liver Is this a current diagnosis for this admission?: Yes (4) Atrial fibrillation Qualifiers: Atrial fibrillation type: permanent Qualified Code(s): I48.21 - Permanent atrial fibrillation Is this a current diagnosis for this admission?: Yes (5) Cholelithiasis Qualifiers: Cholelithiasis location: gallbladder Cholecystitis presence: without cholecystitis Biliary obstruction: with biliary obstruction Qualified Code(s): K80.21 - Calculus of gallbladder without cholecystitis with obstruction Is this a current diagnosis for this admission?: Yes
[2020-02-04] MEDS: FAMOTIDINE INJ/PF 20 MG/2 ML SDV IV SCH (22:08)
[2020-02-04] MEDS: PROMETHAZINE HCL INJ 25 MG/1 ML VIAL IV PRN (22:10)
[2020-02-05] MEDS: HEPARIN SOD (PORCINE) 5,000 UNIT/ML 1 ML VIAL SUBCUT SCH ×3 (05:29→22:17)
[2020-02-05] MEDS: INSULIN LISPRO 100 UNIT/ML 3 ML VIAL SUBCUT SCH ×4 (06:19→17:54)
[2020-02-05 07:25] LABS: HEMATOCRIT 30.5 % (37.9-51.0); HEMOGLOBIN 10.5 g/dL (13.5-17.0); MEAN CORPUSCULAR HEMOGLOBIN 30.7 pg (27.0-33.4); MEAN CORPUSCULAR HGB CONC 34.3 g/dL (32.0-36.0); MEAN CORPUSCULAR VOLUME 89 fl (80-97); PLATELET COUNT 150 10^3/uL (150-450); RED BLOOD COUNT 3.42 10^6/uL (4.35-5.55); RED CELL DISTRIBUTION WIDTH 13.1 % (11.5-14.0); WHITE BLOOD COUNT 15.8 10^3/uL (4.0-10.5)
[2020-02-05 07:42] LABS: ALBUMIN 2.8 g/dL (3.5-5.0); ALKALINE PHOSPHATASE 105 U/L (38-126); ANION GAP 9 (5-19); ASPARTATE AMINO TRANSFERASE 68 U/L (17-59); BILIRUBIN,DIRECT 0.3 mg/dL (0.0-0.4); BILIRUBIN,TOTAL 0.6 mg/dL (0.2-1.3); BLOOD UREA NITROGEN 46 mg/dL (7-20); CALCIUM 8.2 mg/dL (8.4-10.2); CARBON DIOXIDE 19 mmol/L (22-30); CHLORIDE 109 mmol/L (98-107); GLUCOSE 120 mg/dL (75-110); POTASSIUM 4.6 mmol/L (3.6-5.0); TOTAL PROTEIN 5.4 g/dL (6.3-8.2)
[2020-02-05 08:29] LABS: ABSOLUTE LYMPHOCYTES# (MANUAL) 0.9 10^3/uL (0.5-4.7); ABSOLUTE MONOCYTES # (MANUAL) 0.6 10^3/uL (0.1-1.4); BAND NEUTROPHILS % (MANUAL) 7 % (3-5); BASOPHILS % (MANUAL) 0 % (0-2); EOSINOPHILS % (MANUAL) 0 % (0-6); LYMPHOCYTES % (MANUAL) 6 % (13-45); MONOCYTES % (MANUAL) 4 % (3-13); SEGMENTED NEUTROPHILS % (MAN) 83 % (42-78); TOTAL CELLS COUNTED 100
[2020-02-05 08:30] LABS: PLATELET COMMENT ADEQUATE; RBC MORPHOLOGY COMMENT NORMO-CYTIC/CHROMIC
[2020-02-05] MEDS: MORPHINE SULFATE 10 MG/ML INJ IV PRN ×3 (09:27→20:15)
[2020-02-05] MEDS: CEFTRIAXONE 1 GM/D5W RTU 1 GM/50 ML RTUPB IV SCH (09:28)
[2020-02-05] MEDS: FAMOTIDINE INJ/PF 20 MG/2 ML SDV IV SCH ×2 (09:28→21:05)
[2020-02-05] MEDS: ASPIRIN 81 MG TABLET, ENT COATED PO SCH (09:29)
[2020-02-05] MEDS: CYANOCOBALAMIN (VITAMIN B-12) 1,000 MCG TABLET PO SCH (09:29)
[2020-02-05] MEDS: FINASTERIDE 5 MG TABLET PO SCH (09:29)
[2020-02-05] MEDS: TAMSULOSIN HCL 0.4 MG CAP.SR.24H PO SCH (09:29)
--- NOTE | 2020-02-05 11:36 | PDOC PROGRESS REPORT ---
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 In ED he was noted to have leukocytosis, transaminitis, hyperbilirubinemia, elevated lipase, abdominal CT and ultrasound showed cholelithiasis without inflammatory changes, inflammatory changes adjacent to the head of the pancreas and proximal duodenum. ED physician had consulted Dr. Stevenson medical laboratory scientist and surgery and the recommendation was for patient to be admitted under medicine and they will follow up as consult. 02/05/2020. No acute events overnight. Saw patient this morning, comfortably sitting in bed in no apparent distress, accompanied by his , abdominal pain is improving, patient had a bowel movement this morning, passing flatus, denies any shortness of breath, fever, chills, diarrhea or any vomiting. Patient is complaining of intermittent nausea. Patient is scheduled for possible ERCP by Dr. Stevenson medical laboratory scientist today. Reason For Visit: ACUTE GALLSTONE PANCREATITIS Physical Exam Vital Signs: Temp Pulse Resp BP Pulse Ox 98.1 F 75 16 125/55 L 94 02/05/20 10:00 02/05/20 11:07 02/05/20 11:07 02/05/20 07:29 02/05/20 11:07 Intake & Output 02/04/20 02/05/20 02/06/20 06:59 06:59 06:59 Intake Total 3313 Output Total 0 Balance 3313 Weight 118.841 kg 122.8 kg General appearance: PRESENT: no acute distress, obese Head exam: PRESENT: atraumatic, normocephalic Respiratory exam: PRESENT: clear to auscultation vannesa. ABSENT: rales, rhonchi, wheezes Cardiovascular exam: PRESENT: RRR. ABSENT: diastolic murmur, rubs, systolic murmur GI/Abdominal exam: PRESENT: normal bowel sounds, soft, tenderness. ABSENT: distended, guarding, mass, organolmegaly, rebound Neurological exam: PRESENT: alert, awake, oriented to person, oriented to place, oriented to time, oriented to situation, CN II-XII grossly intact. ABSENT: motor sensory deficit Results Laboratory Results: 02/05/20 06:35 02/05/20 06:35 02/03/20 02/05/20 02/05/20 23:05 06:35 06:35 WBC 15.8 H RBC 3.42 L Hgb 10.5 L Hct 30.5 L MCV 89 MCH 30.7 MCHC 34.3 RDW 13.1 Plt Count 150 Seg Neutrophils % Not Reportable Sodium 137.4 Potassium 4.6 Chloride 109 H Carbon Dioxide 19 L Anion Gap 9 BUN 46 H Creatinine 1.64 H Est GFR ( Amer) 49 L Glucose 120 H Calcium 8.2 L Magnesium 2.1 Total Bilirubin 0.6 AST 68 H Alkaline Phosphatase 105 Total Protein 5.4 L Albumin 2.8 L Triglycerides 131 Lipase 9243.0 H Impressions: Abdomen/Pelvis CT 02/03/20 22:15 IMPRESSION: 1. Inflammatory changes adjacent to the head of the pancreas and proximal duodenum. Main differentials are pancreatitis or peptic ulcer disease. Correlation with serum lipase is recommended. 2. Cholelithiasis. Abdomen Ultrasound 02/04/20 07:01 IMPRESSION: Cholelithiasis. No evidence of acute cholecystitis. Chest X-Ray 02/04/20 07:50 IMPRESSION: NO ACUTE RADIOGRAPHIC FINDING IN THE CHEST. Assessment and Plan - Diagnosis (1) Acute gallstone pancreatitis Is this a current diagnosis for this admission?: Yes Plan: Abdominal pain improving, liver chemistries are trending down. Significant improvement of lipase. History of cholelithiasis, most likely gallstone pancreatitis. Denies any abdominal trauma, malignancy or EtOH abuse. CT abdomen and ultrasound of abdomen positive for cholelithiasis without acute cholecystitis and inflammation of the head of the pancreas. Continue volume resuscitation guided by volume status, pain management with opioid and nonopioid medications, monitor vitals status, monitor electrolytes. Gastroenterology on board, scheduled for ERCP. Surgery consulted, plan is possible laparoscopic cholecystectomy. (2) CAD (coronary artery disease) Qualifiers: Coronary Disease-Associated Artery/Lesion type: [place] artery [place] vs. transplanted heart: [place] heart Is this a current diagnosis for this admission?: Yes Plan: Status post PCI with stent placement. Denies any anginal symptoms. Resume home meds. Hold lisinopril given EMA. Resume lisinopril once kidney function normalizes. (3) Atrial fibrillation Qualifiers: Atrial fibrillation type: permanent Qualified Code(s): I48.21 - Permanent atrial fibrillation Is this a current diagnosis for this admission?: Yes Plan: History of chronic persistent atrial fibrillation. Status post maze procedure pacemaker placement. Resume home meds. Outpatient PCP and cardiology follow-up. (4) Hyperlipidemia Is this a current diagnosis for this admission?: Yes Plan: Resume home meds. Diet and lifestyle modification recommended. Triglycerides WNL. (5) Diabetes Qualifiers: Diabetes mellitus type: type 2 Is this a current diagnosis for this admission?: Yes Plan: Takes metformin at home. Hold metformin given p.o. intolerance and EMA. Diabetic diet, Accu-Chek, sliding scale insulin, long-acting insulin. Hypoglycemia protocol. Resume home meds upon discharge. (6) Cholelithiasis Qualifiers: Cholelithiasis location: gallbladder Cholecystitis presence: without cholecystitis Biliary obstruction: with biliary obstruction Qualified Code(s): K80.21 - Calculus of gallbladder without cholecystitis with obstruction Is this a current diagnosis for this admission?: Yes Plan: History of cholelithiasis. Based on ultrasound findings no acute cholecystitis. Patient will possibly need cholecystectomy post ERCP. Surgery consulted. (7) Crohn's disease Is this a current diagnosis for this admission?: Yes Plan: On remission. Taking his Stelara. Resume home meds. Outpatient PCP and rheumatology follow-up. (8) Leukocytosis Qualifiers: Leukocytosis type: bandemia Qualified Code(s): D72.825 - Bandemia Is this a current diagnosis for this admission?: Yes Plan: Mild improvement. Afebrile. Presented with neutrophilic leukocytosis with bandemia. Ultrasound of abdomen negative for acute cholecystitis. Day 2 IV antibiotics. Day 2 IV ceftriaxone. Cultures negative so far. Continue empiric IV antibiotics. Follow-up cultures. - Time Time Spent with patient: 25-34 minutes Medications reviewed and adjusted accordingly: Yes Anticipated Discharge Disposition: Home, Self Care Anticipated Discharge Timeframe: within 72 hours
--- NOTE | 2020-02-05 13:29 | PDOC PROGRESS REPORT ---
Subjective Date:: 02/05/20 Subjective:: The patient is complaining of mid upper abdominal pain Reason For Visit: ACUTE GALLSTONE PANCREATITIS Physical Exam Vital Signs: Temp Pulse Resp BP Pulse Ox 98.1 F 75 16 125/55 L 94 02/05/20 10:00 02/05/20 11:07 02/05/20 11:07 02/05/20 07:29 02/05/20 11:07 Intake & Output 02/04/20 02/05/20 02/06/20 06:59 06:59 06:59 Intake Total 3313 Output Total 0 Balance 3313 Weight 118.841 kg 122.8 kg General appearance: PRESENT: no acute distress, obese GI/Abdominal exam: PRESENT: soft, tenderness - Mid upper abdomen and right upper quadrant Results Laboratory Results: 02/05/20 06:35 02/05/20 06:35 02/03/20 02/05/20 02/05/20 23:05 06:35 06:35 WBC 15.8 H RBC 3.42 L Hgb 10.5 L Hct 30.5 L MCV 89 MCH 30.7 MCHC 34.3 RDW 13.1 Plt Count 150 Seg Neutrophils % Not Reportable Sodium 137.4 Potassium 4.6 Chloride 109 H Carbon Dioxide 19 L Anion Gap 9 BUN 46 H Creatinine 1.64 H Est GFR ( Amer) 49 L Glucose 120 H Calcium 8.2 L Magnesium 2.1 Total Bilirubin 0.6 AST 68 H Alkaline Phosphatase 105 Total Protein 5.4 L Albumin 2.8 L Triglycerides 131 Lipase 9243.0 H Impressions: Abdomen/Pelvis CT 02/03/20 22:15 IMPRESSION: 1. Inflammatory changes adjacent to the head of the pancreas and proximal duodenum. Main differentials are pancreatitis or peptic ulcer disease. Correlation with serum lipase is recommended. 2. Cholelithiasis. Abdomen Ultrasound 02/04/20 07:01 IMPRESSION: Cholelithiasis. No evidence of acute cholecystitis. Chest X-Ray 02/04/20 07:50 IMPRESSION: NO ACUTE RADIOGRAPHIC FINDING IN THE CHEST. Assessment & Plan - Diagnosis (2) Acute pancreatitis Qualifiers: Pancreatitis type: biliary Acute pancreatitis complication: unspecified Qualified Code(s): K85.10 - Biliary acute pancreatitis without necrosis or infection Is this a current diagnosis for this admission?: Yes (3) Cholelithiasis Qualifiers: Cholelithiasis location: gallbladder Cholecystitis presence: without cholecystitis Biliary obstruction: with biliary obstruction Qualified Code(s): K80.21 - Calculus of gallbladder without cholecystitis with obstruction Is this a current diagnosis for this admission?: Yes - Time Anticipated Discharge Disposition: Home, Self Care Anticipated Discharge Timeframe: within 72 hours - Plan Summary Plan Summary: Assessment: Gallstone pancreatic Improved liver profile Improved lipase about 9000 today Patient still complaining of abdominal pain Plan: ERCP TODAY Franny yvan to follow according to the patient clinical status
[2020-02-05] MEDS ORDERED: FENTANYL CITRATE INJ/PF 100 MCG/2 ML AMPUL ONE (17:39)
[2020-02-05] MEDS ORDERED: PROPOFOL INJ 200 MG/20 ML VIAL IV ONE (17:40)
[2020-02-05] MEDS ORDERED: GLUCAGON,HUMAN RECOMB 1 MG INJ ONE (17:40)
[2020-02-05] MEDS ORDERED: MIDAZOLAM 2 MG/2 ML INJ ONE (17:40)
[2020-02-05] MEDS ORDERED: ONDANSETRON HCL INJ/PF 4 MG/2 ML SDV ONE (17:40)
[2020-02-05] MEDS ORDERED: EPINEPHRINE INJ 1 MG/10 ML DISP.SYRIN ONE (17:41)
--- NOTE | 2020-02-05 19:09 | Operative Report ---
Operative Report DATE OF SURGERY: 02/05/20 Operative Report: Pre-op diagnosis: Gallstone pancreatitis and abnormal LFTs Post-op diagnosis: 1. Impacted common bile duct stone and sludge 2. Periampullary diverticulum Surgery: ERCP with sphincterotomy and balloon stone e extraction Medications: As per anesthesia Tissue removed: None Procedure: After informed consent obtained from patient, patient was placed under general anesthesia. The ERCP endoscope was then inserted into the esophagus blindly and advanced into the stomach. The duodenum was entered and the ampulla was identified next to a diverticulum. Using the triple-lumen sphincterotomy catheter the common bile duct was freely cannulated. A cholang iogram was obtained . A good sized sphincterotomy was then performed using the endocut mode. The catheter was removed over the guidewire before a 9-12 mm balloon catheter was inserted. The balloon was inflated to 12 mm in the proximal common bile duct and pulled down the duct. The duct was swept two more times. A balloon occlusion cholangiogram was normal. Patient tolerated procedure well. Findings Common bile duct: A 6 mm stone was impacted at the ampulla which dislodged after sphincterotomy. Moderate amount of sludge was also extracted from the common bile duct. Intrahepatic ducts: Normal Pancreatic duct: Not cannulated Plan: Follow-up LFTs and proceed with cholecystectomy when appropriate. OPERATION: .
--- NOTE | 2020-02-05 19:41 | RADIOLOGY REPORT (SQ) ---
EXAM DESCRIPTION: NO CHG FLUORO IMAGES COMPLETED DATE/TIME: 02/05/2020 7:27 pm REASON FOR STUDY: ERCP COMPARISON: None. FLUOROSCOPY TIME: 5.4 seconds 7 images saved to PACS. TECHNIQUE: Intra-operative images acquired during surgical procedure to evaluate progress. NUMBER OF IMAGES: 7 LIMITATIONS: None. FINDINGS: Cannulation of the common bile duct with retrograde injection. No identified filling defe cts. IMPRESSION: IMAGE(S) OBTAINED DURING PROCEDURE. COMMENT: Quality ID [id number]: Final reports for procedures using fluoroscopy that document radiation exp osure indices, or exposure time and number of fluorographic images (if radiation exposure indices are not available) Please consult full operative report of the attending physician for description of the procedure. TECHNICAL DOCUMENTATION: JOB ID: [id number] 2010 [employer]- All Rights Reserved Reading location - IP/workstation name: [email or web address]
--- NOTE | 2020-02-05 19:41 | RADIOLOGY REPORT (SQ) ---
EXAM DESCRIPTION: ENDO CATH/BILIARY DUCT COMPLETE DATE/TIME: 02/05/2020 7:28 pm REASON FOR STUDY: ERCP FINDINGS: Please see combined report for performance of procedure and radiologic supervision and int erpretation. IMPRESSION: Please see combined report for performance of procedure and radiologic supervision and i nterpretation. Reading location - IP/workstation name: [email or web address]
[2020-02-05] MEDS: NORMAL SALINE 1000 ML 1,000 ML IV PRN (20:18)
[2020-02-05] MEDS: ONDANSETRON HCL INJ/PF 4 MG/2 ML SDV IV PRN (20:25)
[2020-02-06] MEDS: INSULIN LISPRO 100 UNIT/ML 3 ML VIAL SUBCUT SCH ×5 (00:04→23:50)
[2020-02-06] MEDS: PROMETHAZINE HCL INJ 25 MG/1 ML VIAL IV PRN ×2 (00:10→16:34)
[2020-02-06] MEDS: MORPHINE SULFATE 10 MG/ML INJ IV PRN ×4 (00:15→20:34)
[2020-02-06] MEDS: NORMAL SALINE 1000 ML 1,000 ML IV PRN ×3 (01:14→20:05)
[2020-02-06] MEDS: HEPARIN SOD (PORCINE) 5,000 UNIT/ML 1 ML VIAL SUBCUT SCH ×3 (05:05→22:16)
[2020-02-06] MEDS: ONDANSETRON HCL INJ/PF 4 MG/2 ML SDV IV PRN ×2 (05:42→20:34)
[2020-02-06 06:11] LABS: ABSOLUTE BASOPHILS # (AUTO) 0.1 10^3/uL (0.0-0.2); ABSOLUTE EOSINOPHILS # (AUTO) 0.1 10^3/uL (0.0-0.6); ABSOLUTE LYMPHOCYTES (AUTO) 1.2 10^3/uL (0.5-4.7); ABSOLUTE MONOCYTES (AUTO) 0.5 10^3/uL (0.1-1.4); ABSOLUTE NEUT (AUTO) 11.8 10^3/uL (1.7-8.2); BASOPHILS % (AUTO) 0.4 % (0-2); EOSINOPHILS % (AUTO) 0.6 % (0-6); HEMATOCRIT 30.9 % (37.9-51.0); HEMOGLOBIN 10.3 g/dL (13.5-17.0); LYMPHOCYTES % (AUTO) 8.6 % (13-45); MEAN CORPUSCULAR HEMOGLOBIN 30.1 pg (27.0-33.4); MEAN CORPUSCULAR HGB CONC 33.3 g/dL (32.0-36.0); MEAN CORPUSCULAR VOLUME 90 fl (80-97); MONOCYTES % (AUTO) 3.9 % (3-13); PLATELET COUNT 150 10^3/uL (150-450); RED BLOOD COUNT 3.42 10^6/uL (4.35-5.55); RED CELL DISTRIBUTION WIDTH 13.1 % (11.5-14.0); SEGMENTED NEUTROPHILS % (AUTO) 86.5 % (42-78); TOTAL CELLS COUNTED % (AUTO) 100 %; WHITE BLOOD COUNT 13.7 10^3/uL (4.0-10.5)
[2020-02-06 06:33] LABS: ALBUMIN 2.7 g/dL (3.5-5.0); ALKALINE PHOSPHATASE 180 U/L (38-126); ANION GAP 11 (5-19); ASPARTATE AMINO TRANSFERASE 59 U/L (17-59); BILIRUBIN,DIRECT 1.2 mg/dL (0.0-0.4); BILIRUBIN,TOTAL 1.9 mg/dL (0.2-1.3); BLOOD UREA NITROGEN 30 mg/dL (7-20); CALCIUM 8.4 mg/dL (8.4-10.2); CARBON DIOXIDE 18 mmol/L (22-30); CHLORIDE 111 mmol/L (98-107); GLUCOSE 95 mg/dL (75-110); POTASSIUM 4.4 mmol/L (3.6-5.0); TOTAL PROTEIN 5.4 g/dL (6.3-8.2)
[2020-02-06] MEDS ORDERED: ONDANSETRON HCL INJ/PF 4 MG/2 ML SDV ONE (09:43)
[2020-02-06] MEDS ORDERED: ROCURONIUM BROMIDE INJ 50 MG/5 ML VIAL IV ONE (09:43)
[2020-02-06] MEDS ORDERED: NEOSTIGMINE METHYLSULFATE 10 MG/10 ML VIAL ONE (09:43)
[2020-02-06] MEDS ORDERED: GLYCOPYRROLATE 1 MG/5 ML VIAL ONE (09:43)
[2020-02-06] MEDS ORDERED: SUCCINYLCHOLINE CHLORIDE INJ 200 MG/10 ML VIAL ONE (09:43)
[2020-02-06] MEDS ORDERED: DEXAMETHASONE SOD PHOSPHATE INJ 4 MG/1 ML VIAL ONE (09:43)
[2020-02-06] MEDS: CYANOCOBALAMIN (VITAMIN B-12) 1,000 MCG TABLET PO SCH ×2 (10:21→16:42)
[2020-02-06] MEDS: FAMOTIDINE INJ/PF 20 MG/2 ML SDV IV SCH ×3 (10:21→21:59)
[2020-02-06] MEDS: TAMSULOSIN HCL 0.4 MG CAP.SR.24H PO SCH ×2 (10:21→16:42)
[2020-02-06] MEDS: CEFTRIAXONE 1 GM/D5W RTU 1 GM/50 ML RTUPB IV SCH ×2 (10:22→16:08)
[2020-02-06] MEDS: FINASTERIDE 5 MG TABLET PO SCH ×2 (10:22→16:42)
[2020-02-06] MEDS: ASPIRIN 81 MG TABLET, ENT COATED PO SCH (10:23)
--- NOTE | 2020-02-06 10:37 | PDOC PROGRESS REPORT ---
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 In ED he was noted to have leukocytosis, transaminitis, hyperbilirubinemia, elevated lipase, abdominal CT and ultrasound showed cholelithiasis without inflammatory changes, inflammatory changes adjacent to the head of the pancreas and proximal duodenum. ED physician had consulted Dr. Stevenson critical care transport nurse and surgery and the recommendation was for patient to be admitted under medicine and they will follow up as consult. 02/05/2020. No acute events overnight. Saw patient this morning, comfortably sitting in bed in no apparent distress, accompanied by his , abdominal pain is improving, patient had a bowel movement this morning, passing flatus, denies any shortness of breath, fever, chills, diarrhea or any vomiting. Patient is complaining of intermittent nausea. Patient is scheduled for possible ERCP by Dr. Stevenson critical care transport nurse today. 02/06/2020. No acute events overnight. Patient complaining of persistent right upper quadrant abdominal pain 2/4 on severity scale, as well as having a dry mouth as patient is n.p.o. for possible laparoscopic cholecystectomy, otherwise patient is denying any fever, chills, nausea, vomiting. Patient is passing flatus and has not had a bowel movement since yesterday. Reason For Visit: ACUTE GALLSTONE PANCREATITIS Physical Exam Vital Signs: Temp Pulse Resp BP Pulse Ox 98.1 F 71 19 115/80 97 02/06/20 07:25 02/06/20 07:25 02/06/20 07:25 02/06/20 07:25 02/06/20 07:25 Intake & Output 02/05/20 02/06/20 02/07/20 06:59 06:59 06:59 Intake Total 4290 2637 Output Total 0 550 Balance 4290 2087 Weight 122.8 kg 123.2 kg 123.2 kg General appearance: PRESENT: no acute distress, obese, well-developed, well- nourished Head exam: PRESENT: atraumatic, normocephalic Respiratory exam: PRESENT: clear to auscultation vannesa. ABSENT: rales, rhonchi, wheezes Cardiovascular exam: PRESENT: RRR. ABSENT: diastolic murmur, rubs, systolic murmur GI/Abdominal exam: PRESENT: normal bowel sounds, soft, tenderness. ABSENT: distended, guarding, mass, organolmegaly, rebound Neurological exam: PRESENT: alert, awake, oriented to person, oriented to place, oriented to time, oriented to situation, CN II-XII grossly intact. ABSENT: motor sensory deficit Skin exam: PRESENT: dry, intact, warm. ABSENT: cyanosis, rash Results Laboratory Results: 02/06/20 04:54 02/06/20 04:54 02/06/20 02/06/20 04:54 04:54 WBC 13.7 H RBC 3.42 L Hgb 10.3 L Hct 30.9 L MCV 90 MCH 30.1 MCHC 33.3 RDW 13.1 Plt Count 150 Seg Neutrophils % 86.5 H Sodium 139.8 Potassium 4.4 Chloride 111 H Carbon Dioxide 18 L Anion Gap 11 BUN 30 H Creatinine 1.27 H Est GFR ( Amer) > 60 Glucose 95 Calcium 8.4 Total Bilirubin 1.9 H AST 59 Alkaline Phosphatase 180 H Total Protein 5.4 L Albumin 2.7 L Lipase 1264.5 H Impressions: Abdomen/Pelvis CT 02/03/20 22:15 IMPRESSION: 1. Inflammatory changes adjacent to the head of the pancreas and proximal duodenum. Main differentials are pancreatitis or peptic ulcer disease. Correlation with serum lipase is recommended. 2. Cholelithiasis. Abdomen Ultrasound 02/04/20 07:01 IMPRESSION: Cholelithiasis. No evidence of acute cholecystitis. Chest X-Ray 02/04/20 07:50 IMPRESSION: NO ACUTE RADIOGRAPHIC FINDING IN THE CHEST. Catheter Placement 02/05/20 00:00 IMPRESSION: Please see combined report for performance of procedure and radiologic supervision and interpretation. Fluoroscopy 02/05/20 00:00 IMPRESSION: IMAGE(S) OBTAINED DURING PROCEDURE. Assessment and Plan - Diagnosis (1) Acute gallstone pancreatitis Is this a current diagnosis for this admission?: Yes Plan: Status post ERCP 02/05/2020. 6 mm stone removed from common bile duct. Abdominal pain improving, liver chemistries are trending up compared to yesterday. Significant improvement of lipase. History of cholelithiasis. Denies any abdominal trauma, malignancy or EtOH abuse. CT abdomen and ultrasound of abdomen positive for cholelithiasis without acute cholecystitis and inflammation of the head of the pancreas. Continue volume resuscitation guided by volume status, pain management with opioid and nonopioid medications, monitor vitals status, monitor electrolytes. Surgery consulted, plan is possible laparoscopic cholecystectomy. (2) CAD (coronary artery disease) Qualifiers: Coronary Disease-Associated Artery/Lesion type: [place] artery [place] vs. transplanted heart: [place] heart Is this a current diagnosis for this admission?: Yes Plan: Status post PCI with stent placement. Denies any anginal symptoms. Resume home meds. Hold lisinopril given EMA. Resume lisinopril once kidney function normalizes. (3) Atrial fibrillation Qualifiers: Atrial fibrillation type: permanent Qualified Code(s): I48.21 - Permanent atrial fibrillation Is this a current diagnosis for this admission?: Yes Plan: History of chronic persistent atrial fibrillation. Status post maze procedure pacemaker placement. Resume home meds. Outpatient PCP and cardiology follow-up. (4) Hyperlipidemia Is this a current diagnosis for this admission?: Yes Plan: Resume home meds. Diet and lifestyle modification recommended. Triglycerides WNL. (5) Diabetes Qualifiers: Diabetes mellitus type: type 2 Is this a current diagnosis for this admission?: Yes Plan: Takes metformin at home. Hold metformin given p.o. intolerance and EMA. Diabetic diet, Accu-Chek, sliding scale insulin, long-acting insulin. Hypoglycemia protocol. Resume home meds upon discharge. (6) Cholelithiasis Qualifiers: Cholelithiasis location: gallbladder Cholecystitis presence: without cholecystitis Biliary obstruction: with biliary obstruction Qualified Code(s): K80.21 - Calculus of gallbladder without cholecystitis with obstruction Is this a current diagnosis for this admission?: Yes Plan: History of cholelithiasis. Based on ultrasound findings no acute cholecystitis. Patient will possibly need cholecystectomy post ERCP. Surgery consulted. (7) Crohn's disease Is this a current diagnosis for this admission?: Yes Plan: On remission. Taking his Stelara. Resume home meds. Outpatient PCP and rheumatology follow-up. (8) Leukocytosis Qualifiers: Leukocytosis type: bandemia Qualified Code(s): D72.825 - Bandemia Is this a current diagnosis for this admission?: Yes Plan: Mild improvement. Afebrile. Presented with neutrophilic leukocytosis with bandemia. Ultrasound of abdomen negative for acute cholecystitis. Day 3 IV antibiotics. Day 3 IV ceftriaxone. Cultures negative so far. Continue empiric IV antibiotics. Follow-up cultures. (9) Acute kidney injury Is this a current diagnosis for this admission?: Yes Plan: Prerenal most likely due to nausea and vomiting caused by acute pancreatitis. Creatinine improving, nonoliguric, electrolytes WNL. Continue cautious volume resuscitation guided by volume status. Strict in and out. Avoid nephrotoxic meds. - Time Time Spent with patient: 25-34 minutes Anticipated Discharge Disposition: Home, Self Care Anticipated Discharge Timeframe: within 48 hours
--- NOTE | 2020-02-06 10:48 | PDOC PROGRESS REPORT ---
Subjective Date:: 02/06/20 Reason For Visit: ACUTE GALLSTONE PANCREATITIS Patient feels better but still having right upper quadrant tenderness, and some shortness of breath with deep inspiration. Heparin held since yesterday. N.p.o. in anticipation of laparoscopic cholecystectomy today. Physical Exam Vital Signs: Temp Pulse Resp BP Pulse Ox 98.1 F 71 19 115/80 97 02/06/20 07:25 02/06/20 07:25 02/06/20 07:25 02/06/20 07:25 02/06/20 07:25 Intake & Output 02/05/20 02/06/20 02/07/20 06:59 06:59 06:59 Intake Total 4290 2637 Output Total 0 550 Balance 4290 2087 Weight 122.8 kg 123.2 kg 123.2 kg General appearance: PRESENT: mild distress Head exam: PRESENT: normocephalic Eye exam: PRESENT: other - No evidence of icterus GI/Abdominal exam: PRESENT: other - The abdomen is soft; there is tenderness in the right upper quadrant with mild guarding. Helical hernia. Results Laboratory Results: 02/06/20 04:54 02/06/20 04:54 02/06/20 02/06/20 04:54 04:54 WBC 13.7 H RBC 3.42 L Hgb 10.3 L Hct 30.9 L MCV 90 MCH 30.1 MCHC 33.3 RDW 13.1 Plt Count 150 Seg Neutrophils % 86.5 H Sodium 139.8 Potassium 4.4 Chloride 111 H Carbon Dioxide 18 L Anion Gap 11 BUN 30 H Creatinine 1.27 H Est GFR ( Amer) > 60 Glucose 95 Calcium 8.4 Total Bilirubin 1.9 H AST 59 Alkaline Phosphatase 180 H Total Protein 5.4 L Albumin 2.7 L Lipase 1264.5 H Impressions: Abdomen/Pelvis CT 02/03/20 22:15 IMPRESSION: 1. Inflammatory changes adjacent to the head of the pancreas and proximal duodenum. Main differentials are pancreatitis or peptic ulcer disease. Correlation with serum lipase is recommended. 2. Cholelithiasis. Abdomen Ultrasound 02/04/20 07:01 IMPRESSION: Cholelithiasis. No evidence of acute cholecystitis. Chest X-Ray 02/04/20 07:50 IMPRESSION: NO ACUTE RADIOGRAPHIC FINDING IN THE CHEST. Catheter Placement 02/05/20 00:00 IMPRESSION: Please see combined report for performance of procedure and radiologic supervision and interpretation. Fluoroscopy 02/05/20 00:00 IMPRESSION: IMAGE(S) OBTAINED DURING PROCEDURE. Assessment & Plan - Diagnosis (1) Acute gallstone pancreatitis Is this a current diagnosis for this admission?: Yes Plan: Impression: Suspect acute superimposed on chronic cholecystitis that is post ERCP, extraction of impacted common bile duct stone, pancreatitis subsiding Recommendations: 1. We will proceed with laparoscopic, possible open cholecystectomy, possible drain placement, 1 hour, [facility], general anesthesia. Risk benefits and alternatives to the planned duration include bleeding, infection, bile duct injury, need for additional intervention. Patient and expressed understanding agreed to proceed. 2. Patient's Covid status is negative. (2) Abnormal liver function Is this a current diagnosis for this admission?: Yes (3) CAD (coronary artery disease) Qualifiers: Coronary Disease-Associated Artery/Lesion type: [place] artery [place] vs. transplanted heart: [place] heart Is this a current diagnosis for this admission?: Yes - Time Anticipated Discharge Disposition: Home, Self Care Anticipated Discharge Timeframe: within 48 hours Time Spent: 30 to 50 Minutes Medications reviewed and adjusted accordingly: Yes
[2020-02-06] MEDS ORDERED: FENTANYL CITRATE INJ/PF 250 MCG/5 ML AMPULE ONE (11:13)
[2020-02-06] MEDS ORDERED: BUPIVACAINE HCL 0.25 % INJ/PF (2.5 MG/1 ML) 30 ML VIAL ONE (11:14)
[2020-02-06] MEDS ORDERED: PROPOFOL INJ 200 MG/20 ML VIAL IV ONE (11:14)
[2020-02-06] MEDS ORDERED: MIDAZOLAM 2 MG/2 ML INJ ONE (11:14)
[2020-02-06] MEDS ORDERED: CEFTRIAXONE INJ 1000 MG VIAL ONE (11:25)
[2020-02-06] MEDS ORDERED: BUPIVACAINE INJ/PF LIPOSOME/PF 266 MG/20 ML SDV ONE (13:05)
[2020-02-06] MEDS ORDERED: MEPERIDINE HCL/PF INJ 25 MG/1 ML DISP.SYRIN IV PRN (13:33)
[2020-02-06] MEDS ORDERED: PROMETHAZINE HCL INJ 25 MG/1 ML VIAL IV PRN (13:33)
[2020-02-06] MEDS ORDERED: MORPHINE SULFATE 10 MG/ML INJ IV PRN (13:33)
[2020-02-06] MEDS ORDERED: FENTANYL CITRATE INJ/PF 100 MCG/2 ML AMPUL IV PRN ×2 (13:33)
[2020-02-06] MEDS ORDERED: DIPHENHYDRAMINE HCL 50 MG/ML VIAL IV PRN (13:33)
[2020-02-06] MEDS: FENTANYL CITRATE INJ/PF 100 MCG/2 ML AMPUL IV PRN ×2 (13:50→14:00)
[2020-02-06] MEDS ORDERED: FENTANYL CITRATE INJ/PF 100 MCG/2 ML AMPUL ONE (13:55)
--- NOTE | 2020-02-06 13:56 | Operative Report ---
Operative Report DATE OF SURGERY: 02/06/20 PREOPERATIVE DIAGNOSIS: 1. Acute cholecystitis with cholelithiasis cyst. 2. Status post ERCP, sphincterotomy, common bile duct stone extraction. 3. Coronary artery disease; status post pacemaker placement. 4. Crohn's disease with pharmacologic immunosuppression POSTOPERATIVE DIAGNOSIS: Same OPERATION: 1. Laparoscopic conversion to open cholecystectomy. 2. Control of intra-abdominal hemorrhage with evacuation of clots. 3. Control of accessory bile duct. 4. Intraoperative cholangiogram with interpretation. 5. Placement of subhepatic drain SURGEON: SANDRA CALLOWAY 1ST HAND EMBROIDERER: ALE CABRERA ANESTHESIA: GA TISSUE REMOVED OR ALTERED: 1 gallbladder with multiple stones COMPLICATIONS: Intra-abdominal hemorrhage approximately 1200 cc ESTIMATED BLOOD LOSS: Intra-abdominal blood loss of 1200 cc INTRAOPERATIVE FINDINGS: See below PROCEDURE: Patient was taken to the preop holding area to the main operating room where general anesthesia was induced. Arms were abducted, abdominal wall exposed, prepped and draped in a sterile fashion. Instrumentation was set up for laparoscopic cholecystectomy. Surgical plan surgical timeout were conducted. Markings were made on the skin for 4 port laparoscopy. All 4 sites were anesthetized with quarter percent Marcaine. A vertical incision was made over the umbilicus with a #15 blade, Veress needle inserted the peritoneal cavity uneventfully, pneumoperitoneum was established, Veress needle removed, and a 5 mm port was inserted. Using a flexible 5 mm scope, 3 additional ports were placed one in the subxiphoid and 2 in the subcostal positions. Findings were significant for copious quantities of thick turbid bile-stained peritoneal fluid, approximately 1-1/2 L. This was primarily sequestered above the right lobe of the liver under the diaphragm into the pelvis. We aspirated the majority of this out with laparoscopic suction. The omentum was adhesed to the surface of the liver, and covering the gallbladder.. It was gently pulled away from the gallbladder, revealing an acutely inflamed, distended gallbladder. Photos were taken. The gallbladder was aspirated approximately 100 cc of thick turbid bile. Of note the bilious peritoneal fluid was sent for Gram stain culture and sensitivity. The patient was placed in steep Trendelenburg position, and rotated to the left side. Graspers were placed in the gallbladder and infundibulum. The infundibulum now dissected away from surrounding inflammatory fatty tissue fairly readily. We now opened up the triangle of Calot low, and dissected both medially and laterally to reveal what was felt to be the cystic artery and the cystic duct. These 2 structures were left in situ. Just above this area along the plate of the liver was a adhesive band of tissue. It was unclear whether this was a blood vessel, or an accessory bile duct. Therefore it too was left as it is. We now repositioned the graspers and began taking the gallbladder down from the fundus. We took approximately one third of the gallbladder off of the surface of the liver and encountered some bleeding along the medial attachment of the gallbladder. I immediately elevated the gallbladder up over the liver bed to hold compression and positioned the instruments to continued the dissection from the infundibulum up, however the bleeding immediately became brisk to the point that repeated removal and wiping of the scope were unsuccessful in visualizing where exactly the bleeding was coming from. Within less than a minute the decision was made to convert to an open cholecystectomy for control of intra- abdominal hemorrhage All laparoscopic instruments were removed, using a #10 blade, a generous subcostal incision was made with a knife. Subcutaneous tissue, fascia and muscle all divided with electrocautery. Retractors were inserted into the field, and the right upper quadrant packed off with laparotomy sponges. We immediately called for extra help, and Dr. Cabrera was called into the room to assist. Bookwalter retractor was established, anesthesia adequate IV access, and the patient remained hemodynamically stable throughout this time. There was a significant amount of clot in the abdomen immediately evacuated, direct pressure was applied to the gallbladder, thereby occluding the bleeding source. Now with excellent Bookwalter retractor exposure, the right lobe of the liver elevated, and other organs retracted out of the [id number], we were able to swiftly remove the remaining attachments of gallbladder from the inferior surface of the liver. At this point the gallbladder was attached by only 3 structures, the previously dissected cystic duct, cystic artery, and the previously described tissue pedicle thought possibly to represent a accessory bile duct. Of note the bleeding was found to be coming directly from the posterior surface of the cystic artery. I immediately placed 2 clips on the cystic artery proximally. We now irrigated out the subhepatic space, and ensured there was no other source of bleeding, including the liver and there was none. There was minimal ooze from the inferior surface of the liver where the gallbladder was removed. Now carefully interrogated the 3 points of attachment described above. We now finished opening up the gallbladder remove multiple stones, and used visual as well as manual inspection to confirm the duodenum of the gallbladder was exactly where we thought it was, as well as the point of tapering to the cystic duct. At this point we felt we could safely divide the cystic duct, so tie was placed at its base with 3-0 silk, and the cystic duct was divided. The previously described cystic artery, clipped twice proximally, was now clipped once distally and it was divided with scissors. The gallbladder remained attached by this final tissue band. We dissected from the gallbladder down to the tissue band, and eventually severed that small stalk approximately 8 mm in diameter and with some balm scissors teased apart and found to contain a 1 mm diameter accessory bile duct. Throughout the entire dissection we were not down towards the edith hepatis or near the common bile duct. A clip was placed across this accessory duct. The gallbladder was removed from the patient and sent with stones to pathology I now felt for completion purposes a cholangiogram was indicated. The previously placed silk suture around the cystic duct stump was removed, a percutaneous cholangiogram catheter was threaded into position, and secured with a Hemoclip. All retractors were removed, we completed intraoperative cholangiography with full-strength Isovue. This delineated the entire biliary tree with intrahepatic, extrahepatic ducts visualized including the common hepatic duct, bile duct, and immediate egress of contrast into the duodenum. There was no leak or no filling defects noted. I felt that this was a normal cholangiogram. Angiogram catheter was removed, the cystic duct stump secured with a 2-0 silk suture We inspected the operative field as described above and there was no mechanical bleeding identified. Again the patient remained hemodynamically stable good sats. A large Junito drain was brought through where the previous port site incisions, trimmed to the appropriate length and secured to the skin with 2-0 Prolene suture. Sponge and counts are correct. Additional irrigation of peritoneal cavity was undertaken to ensure all bile and blood were removed. The subcostal incision was closed in 2 layers with 4-0 PDS sutures in a running continuous fashion. Skin was closed with regan, 20 cc of full-strength Exparel deployed in the subcutaneous tissue, drain hooked to bulb suction. The other to laparoscopy port sites were closed with regan. Patient had a Blake catheter inserted, then extubated and taken to the recovery room in stable condition. Dr. Dariel Cabrera, general surgeon, assisted with managing control of intra- abdominal hemorrhage, exposure, and participated in intraoperative decision making.
[2020-02-06] MEDS ORDERED: ACETAMINOPHEN 1,000 MG/100 ML RTUPB IV ONE ×2 (14:13→15:30)
[2020-02-06 14:22] LABS: HEMATOCRIT 27.7 % (37.9-51.0); HEMOGLOBIN 9.2 g/dL (13.5-17.0); MEAN CORPUSCULAR HGB CONC 33.2 g/dL (32.0-36.0); MEAN CORPUSCULAR VOLUME 90 fl (80-97); PLATELET COUNT 161 10^3/uL (150-450); RED BLOOD COUNT 3.07 10^6/uL (4.35-5.55); RED CELL DISTRIBUTION WIDTH 13.3 % (11.5-14.0); WHITE BLOOD COUNT 14.9 10^3/uL (4.0-10.5)
[2020-02-06 14:48] LABS: ANION GAP 9 (5-19); BLOOD UREA NITROGEN 27 mg/dL (7-20); CALCIUM 8.2 mg/dL (8.4-10.2); CARBON DIOXIDE 19 mmol/L (22-30); CHLORIDE 111 mmol/L (98-107); GLUCOSE 123 mg/dL (75-110); POTASSIUM 4.7 mmol/L (3.6-5.0)
--- NOTE | 2020-02-06 15:21 | RADIOLOGY REPORT (SQ) ---
EXAM DESCRIPTION: CHOLANGIOGRAM OPERATIVE IMAGES COMPLETED DATE/TIME: 02/06/2020 2:33 pm REASON FOR STUDY: CHOLANGIOGRAM IN OR COMPARISON: None. FLUOROSCOPY TIME: 0.1 minute 3 images saved to PACS. TECHNIQUE: 3 fluoroscopic images were obtained from an intraoperative cholangiogram. LIMITATIONS: None. FINDINGS: There is opacification of the bile ducts, cystic duct remnants and second portion of the d uodenum without evidence of fixed filling defect or significant extravasation. IMPRESSION: INTRAOPERATIVE CHOLANGIOGRAM. COMMENT: Quality ID [id number]: Final reports for procedures using fluoroscopy that document radiation exp osure indices, or exposure time and number of fluorographic images (if radiation exposure indices are not available) TECHNICAL DOCUMENTATION: JOB ID: [id number] 2010 [employer]- All Rights Reserved Reading location - IP/workstation name: [email or web address]
[2020-02-06] MEDS ORDERED: CEFTRIAXONE 1 GM/D5W RTU 1 GM/50 ML RTUPB IV ONE (16:15)
[2020-02-07] MEDS: MORPHINE SULFATE 10 MG/ML INJ IV PRN ×4 (00:40→14:10)
[2020-02-07] MEDS: NORMAL SALINE 1000 ML 1,000 ML IV PRN ×2 (01:08→08:08)
[2020-02-07] MEDS: HEPARIN SOD (PORCINE) 5,000 UNIT/ML 1 ML VIAL SUBCUT SCH ×3 (05:00→21:28)
[2020-02-07] MEDS: ONDANSETRON HCL INJ/PF 4 MG/2 ML SDV IV PRN ×2 (05:00→09:46)
[2020-02-07] MEDS: INSULIN LISPRO 100 UNIT/ML 3 ML VIAL SUBCUT SCH ×4 (06:10→23:13)
[2020-02-07 07:19] LABS: HEMATOCRIT 24.1 % (37.9-51.0); HEMOGLOBIN 8.1 g/dL (13.5-17.0); MEAN CORPUSCULAR HEMOGLOBIN 29.8 pg (27.0-33.4); MEAN CORPUSCULAR HGB CONC 33.4 g/dL (32.0-36.0); MEAN CORPUSCULAR VOLUME 89 fl (80-97); PLATELET COUNT 150 10^3/uL (150-450); RED CELL DISTRIBUTION WIDTH 12.8 % (11.5-14.0); WHITE BLOOD COUNT 15.8 10^3/uL (4.0-10.5)
[2020-02-07 07:40] LABS: ALBUMIN 2.3 g/dL (3.5-5.0); ALKALINE PHOSPHATASE 139 U/L (38-126); ANION GAP 8 (5-19); ASPARTATE AMINO TRANSFERASE 54 U/L (17-59); BILIRUBIN,DIRECT 0.3 mg/dL (0.0-0.4); BILIRUBIN,TOTAL 0.7 mg/dL (0.2-1.3); BLOOD UREA NITROGEN 21 mg/dL (7-20); CALCIUM 7.8 mg/dL (8.4-10.2); CARBON DIOXIDE 18 mmol/L (22-30); CHLORIDE 109 mmol/L (98-107); GLUCOSE 125 mg/dL (75-110); POTASSIUM 4.5 mmol/L (3.6-5.0); TOTAL PROTEIN 4.7 g/dL (6.3-8.2)
[2020-02-07] MEDS: CYANOCOBALAMIN (VITAMIN B-12) 1,000 MCG TABLET PO SCH ×2 (09:46→10:01)
[2020-02-07] MEDS: ASPIRIN 81 MG TABLET, ENT COATED PO SCH ×2 (09:46→10:00)
[2020-02-07] MEDS: FINASTERIDE 5 MG TABLET PO SCH ×2 (09:46→10:01)
[2020-02-07] MEDS: FAMOTIDINE INJ/PF 20 MG/2 ML SDV IV SCH ×2 (09:46→21:27)
[2020-02-07] MEDS: TAMSULOSIN HCL 0.4 MG CAP.SR.24H PO SCH ×3 (09:46→21:28)
[2020-02-07] MEDS: CEFTRIAXONE 1 GM/D5W RTU 1 GM/50 ML RTUPB IV SCH (09:56)
--- NOTE | 2020-02-07 10:16 | PDOC PROGRESS REPORT ---
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 In ED he was noted to have leukocytosis, transaminitis, hyperbilirubinemia, elevated lipase, abdominal CT and ultrasound showed cholelithiasis without inflammatory changes, inflammatory changes adjacent to the head of the pancreas and proximal duodenum. ED physician had consulted Dr. Stevenson rubberizing mechanic and surgery and the recommendation was for patient to be admitted under medicine and they will follow up as consult. 02/05/2020. No acute events overnight. Saw patient this morning, comfortably sitting in bed in no apparent distress, accompanied by his , abdominal pain is improving, patient had a bowel movement this morning, passing flatus, denies any shortness of breath, fever, chills, diarrhea or any vomiting. Patient is complaining of intermittent nausea. Patient is scheduled for possible ERCP by Dr. Stevenson rubberizing mechanic today. 02/06/2020. No acute events overnight. Patient complaining of persistent right upper quadrant abdominal pain 2/4 on severity scale, as well as having a dry mouth as patient is n.p.o. for possible laparoscopic cholecystectomy, otherwise patient is denying any fever, chills, nausea, vomiting. Patient is passing flatus and has not had a bowel movement since yesterday. 02/07/2020. No acute events overnight. Patient is status post open laparoscopic converted to open cholecystectomy, still complaining of mild abdominal pain, is p.o. tolerant, has not had a bowel, passing flatus, denies any fever, chills, nausea, vomiting, diarrhea, constipation or any urinary symptoms. Reason For Visit: ACUTE GALLSTONE PANCREATITIS Physical Exam Vital Signs: Temp Pulse Resp BP Pulse Ox 98.2 F 88 18 123/75 100 02/07/20 08:00 02/07/20 08:00 02/07/20 08:00 02/07/20 08:00 02/07/20 08:00 Intake & Output 02/06/20 02/07/20 02/08/20 06:59 06:59 06:59 Intake Total 2637 7250 Output Total 630 0205 Balance 5 3625 Weight 123.2 kg 128 kg General appearance: PRESENT: no acute distress, obese, well-developed, well- nourished Head exam: PRESENT: atraumatic, normocephalic Respiratory exam: PRESENT: clear to auscultation vannesa. ABSENT: rales, rhonchi, wheezes Cardiovascular exam: PRESENT: RRR. ABSENT: diastolic murmur, rubs, systolic murmur GI/Abdominal exam: PRESENT: normal bowel sounds, soft, other - WAYLON drain in place, filled with serosanguineous fluid.. ABSENT: distended, guarding, mass, organolmegaly, rebound, tenderness Neurological exam: PRESENT: alert, awake, oriented to person, oriented to place, oriented to time, oriented to situation, CN II-XII grossly intact. ABSENT: motor sensory deficit Results Laboratory Results: 02/07/20 06:02 02/07/20 06:02 02/06/20 02/06/20 02/06/20 12:59 14:14 14:14 WBC 14.9 H RBC 3.07 L Hgb 9.2 L Hct 27.7 L MCV 90 MCH 30.0 MCHC 33.2 RDW 13.3 Plt Count 161 Sodium 138.9 Potassium 4.7 Chloride 111 H Carbon Dioxide 19 L Anion Gap 9 BUN 27 H Creatinine 1.10 Est GFR ( Amer) > 60 Glucose 123 H Calcium 8.2 L Total Bilirubin AST Alkaline Phosphatase Total Protein Albumin Lipase Blood Type O POSITIVE Antibody Screen NEGATIVE 02/07/20 02/07/20 06:02 06:02 WBC 15.8 H RBC 2.70 L Hgb 8.1 L Hct 24.1 L MCV 89 MCH 29.8 MCHC 33.4 RDW 12.8 Plt Count 150 Sodium 135.3 L Potassium 4.5 Chloride 109 H Carbon Dioxide 18 L Anion Gap 8 BUN 21 H Creatinine 0.91 Est GFR ( Amer) > 60 Glucose 125 H Calcium 7.8 L Total Bilirubin 0.7 AST 54 Alkaline Phosphatase 139 H Total Protein 4.7 L Albumin 2.3 L Lipase 106.3 Blood Type Antibody Screen Impressions: Abdomen/Pelvis CT 02/03/20 22:15 IMPRESSION: 1. Inflammatory changes adjacent to the head of the pancreas and proximal duodenum. Main differentials are pancreatitis or peptic ulcer disease. Correlation with serum lipase is recommended. 2. Cholelithiasis. Abdomen Ultrasound 02/04/20 07:01 IMPRESSION: Cholelithiasis. No evidence of acute cholecystitis. Chest X-Ray 02/04/20 07:50 IMPRESSION: NO ACUTE RADIOGRAPHIC FINDING IN THE CHEST. Catheter Placement 02/05/20 00:00 IMPRESSION: Please see combined report for performance of procedure and radiologic supervision and interpretation. Fluoroscopy 02/05/20 00:00 IMPRESSION: IMAGE(S) OBTAINED DURING PROCEDURE. Cholangiogram 02/06/20 00:00 IMPRESSION: INTRAOPERATIVE CHOLANGIOGRAM. Assessment and Plan - Diagnosis (1) Cholelithiasis Qualifiers: Cholelithiasis location: gallbladder Cholecystitis presence: without cholecystitis Biliary obstruction: with biliary obstruction Qualified Code(s): K80.21 - Calculus of gallbladder without cholecystitis with obstruction Is this a current diagnosis for this admission?: Yes Plan: Day 1 status post open cholecystectomy. Based on ultrasound findings no acute cholecystitis. Monitor vitals, monitor electrolytes, monitor volume status. Surgery following. (2) Acute gallstone pancreatitis Is this a current diagnosis for this admission?: Yes Plan: Status post ERCP 02/05/2020. 6 mm stone removed from common bile duct. Lipase WNL. Abdominal pain improving, liver chemistries are trending up compared to yesterday. History of cholelithiasis. Denies any abdominal trauma, malignancy or EtOH abuse. CT abdomen and ultrasound of abdomen positive for cholelithiasis without acute cholecystitis and inflammation of the head of the pancreas. Continue volume resuscitation guided by volume status, pain management with opioid and nonopioid medications, monitor vitals status, monitor electrolytes. Surgery consulted, plan is possible laparoscopic cholecystectomy. (3) CAD (coronary artery disease) Qualifiers: Coronary Disease-Associated Artery/Lesion type: [place] artery [place] vs. transplanted heart: [place] heart Is this a current diagnosis for this admission?: Yes Plan: Status post PCI with stent placement. Denies any anginal symptoms. Resume home meds. Hold lisinopril given EMA. Resume lisinopril once kidney function normalizes. (4) Atrial fibrillation Qualifiers: Atrial fibrillation type: permanent Qualified Code(s): I48.21 - Permanent atrial fibrillation Is this a current diagnosis for this admission?: Yes Plan: History of chronic persistent atrial fibrillation. Status post maze procedure pacemaker placement. Resume home meds. Outpatient PCP and cardiology follow-up. (5) Hyperlipidemia Is this a current diagnosis for this admission?: Yes Plan: Resume home meds. Diet and lifestyle modification recommended. Triglycerides WNL. (6) Diabetes Qualifiers: Diabetes mellitus type: type 2 Is this a current diagnosis for this admission?: Yes Plan: Takes metformin at home. Hold metformin given p.o. intolerance and EMA. Diabetic diet, Accu-Chek, sliding scale insulin, long-acting insulin. Hypoglycemia protocol. Resume home meds upon discharge. (7) Crohn's disease Is this a current diagnosis for this admission?: Yes Plan: On remission. Taking his Stelara. Resume home meds. Outpatient PCP and rheumatology follow-up. (8) Leukocytosis Qualifiers: Leukocytosis type: bandemia Qualified Code(s): D72.825 - Bandemia Is this a current diagnosis for this admission?: Yes Plan: Mild improvement. Afebrile. Presented with neutrophilic leukocytosis with bandemia. Ultrasound of abdomen negative for acute cholecystitis. Day 4 IV antibiotics. Day 4 IV ceftriaxone. Cultures negative so far. Continue empiric IV antibiotics. Follow-up cultures. (9) Acute kidney injury Is this a current diagnosis for this admission?: Yes Plan: Resolved. Prerenal most likely due to nausea and vomiting caused by acute pancreatitis. Creatinine improving, nonoliguric, electrolytes WNL. Continue cautious volume resuscitation guided by volume status. Strict in and out. Avoid nephrotoxic meds. (10) Acute blood loss anemia Is this a current diagnosis for this admission?: Yes Plan: Patient had a complicated laparoscopic cholecystectomy which was converted to open cholecystectomy. Please refer to surgery note. Patient had a blood loss of 1200 cc during the operation. No sign of any acute bleeding. Of note patient also have chronic anemia due to his underlying Crohn's disease. Hemoglobin is stable. Monitor H&H. Supportive transfusion, goal of hemoglobin is 9-10 given underlying comorbidities. - Time Time Spent with patient: 25-34 minutes Anticipated Discharge Disposition: Home, Self Care Anticipated Discharge Timeframe: within 48 hours
--- NOTE | 2020-02-07 13:46 | PDOC PROGRESS REPORT ---
Subjective Date:: 02/07/20 Reason For Visit: ACUTE GALLSTONE PANCREATITIS Physical Exam Vital Signs: Temp Pulse Resp BP Pulse Ox 98.2 F 78 18 129/62 H 98 02/07/20 12:41 02/07/20 12:41 02/07/20 12:41 02/07/20 12:41 02/07/20 12:41 Intake & Output 02/06/20 02/07/20 02/08/20 06:59 06:59 06:59 Intake Total 2637 7250 730 Output Total 550 3625 300 Balance 2087 3625 430 Weight 123.2 kg 128 kg Results Laboratory Results: 02/07/20 06:02 02/07/20 06:02 02/06/20 02/06/20 02/06/20 12:59 14:14 14:14 WBC 14.9 H RBC 3.07 L Hgb 9.2 L Hct 27.7 L MCV 90 MCH 30.0 MCHC 33.2 RDW 13.3 Plt Count 161 Sodium 138.9 Potassium 4.7 Chloride 111 H Carbon Dioxide 19 L Anion Gap 9 BUN 27 H Creatinine 1.10 Est GFR ( Amer) > 60 Glucose 123 H Calcium 8.2 L Total Bilirubin AST Alkaline Phosphatase Total Protein Albumin Lipase Blood Type O POSITIVE Antibody Screen NEGATIVE 02/07/20 02/07/20 06:02 06:02 WBC 15.8 H RBC 2.70 L Hgb 8.1 L Hct 24.1 L MCV 89 MCH 29.8 MCHC 33.4 RDW 12.8 Plt Count 150 Sodium 135.3 L Potassium 4.5 Chloride 109 H Carbon Dioxide 18 L Anion Gap 8 BUN 21 H Creatinine 0.91 Est GFR ( Amer) > 60 Glucose 125 H Calcium 7.8 L Total Bilirubin 0.7 AST 54 Alkaline Phosphatase 139 H Total Protein 4.7 L Albumin 2.3 L Lipase 106.3 Blood Type Antibody Screen Impressions: Abdomen/Pelvis CT 02/03/20 22:15 IMPRESSION: 1. Inflammatory changes adjacent to the head of the pancreas and proximal duodenum. Main differentials are pancreatitis or peptic ulcer disease. Correlation with serum lipase is recommended. 2. Cholelithiasis. Abdomen Ultrasound 02/04/20 07:01 IMPRESSION: Cholelithiasis. No evidence of acute cholecystitis. Chest X-Ray 02/04/20 07:50 IMPRESSION: NO ACUTE RADIOGRAPHIC FINDING IN THE CHEST. Catheter Placement 02/05/20 00:00 IMPRESSION: Please see combined report for performance of procedure and radiologic supervision and interpretation. Fluoroscopy 02/05/20 00:00 IMPRESSION: IMAGE(S) OBTAINED DURING PROCEDURE. Cholangiogram 02/06/20 00:00 IMPRESSION: INTRAOPERATIVE CHOLANGIOGRAM. Assessment & Plan - Time Anticipated Discharge Disposition: Home, Self Care Anticipated Discharge Timeframe: unknown - Plan Summary Plan Summary: 79-year-old male status post laparoscopic converted to open cholecystectomy. The patient complains of pain this morning at the surgical site. His Blake catheter is still in place. He denies any nausea or vomiting. He is tolerating a liquid diet. Add oral pain medications. Advance diet. Discontinue Blake. Aggressive pulmonary toilet. Ambulate in hallways.
[2020-02-07] MEDS ORDERED: NORMAL SALINE 1000 ML 1,000 ML IV PRN (14:50)
[2020-02-07] MEDS: HYDROCODONE/ACETAMINOPHEN 10-325 MG TABLET PO PRN ×2 (16:11→20:23)
[2020-02-08] MEDS: HEPARIN SOD (PORCINE) 5,000 UNIT/ML 1 ML VIAL SUBCUT SCH ×3 (05:06→21:46)
[2020-02-08] MEDS: INSULIN LISPRO 100 UNIT/ML 3 ML VIAL SUBCUT SCH ×3 (06:18→18:48)
[2020-02-08 06:40] LABS: HEMATOCRIT 23.5 % (37.9-51.0); MEAN CORPUSCULAR HEMOGLOBIN 29.7 pg (27.0-33.4); MEAN CORPUSCULAR HGB CONC 33.2 g/dL (32.0-36.0); MEAN CORPUSCULAR VOLUME 89 fl (80-97); PLATELET COUNT 162 10^3/uL (150-450); RED BLOOD COUNT 2.63 10^6/uL (4.35-5.55); WHITE BLOOD COUNT 13.6 10^3/uL (4.0-10.5)
[2020-02-08 06:58] LABS: ALBUMIN 2.2 g/dL (3.5-5.0); ALKALINE PHOSPHATASE 120 U/L (38-126); ANION GAP 7 (5-19); ASPARTATE AMINO TRANSFERASE 40 U/L (17-59); BILIRUBIN,DIRECT 0.2 mg/dL (0.0-0.4); BILIRUBIN,TOTAL 0.5 mg/dL (0.2-1.3); BLOOD UREA NITROGEN 16 mg/dL (7-20); CALCIUM 7.8 mg/dL (8.4-10.2); CARBON DIOXIDE 20 mmol/L (22-30); CHLORIDE 108 mmol/L (98-107); GLUCOSE 123 mg/dL (75-110); POTASSIUM 4.1 mmol/L (3.6-5.0); TOTAL PROTEIN 4.7 g/dL (6.3-8.2)
[2020-02-08 07:21] LABS: HEMOGLOBIN 7.8 g/dL (13.5-17.0)
[2020-02-08 07:23] LABS: ABSOLUTE LYMPHOCYTES# (MANUAL) 0.7 10^3/uL (0.5-4.7); ABSOLUTE MONOCYTES # (MANUAL) 0.8 10^3/uL (0.1-1.4); BASOPHILS % (MANUAL) 0 % (0-2); EOSINOPHILS % (MANUAL) 0 % (0-6); LYMPHOCYTES % (MANUAL) 5 % (13-45); MONOCYTES % (MANUAL) 6 % (3-13); SEGMENTED NEUTROPHILS % (MAN) 89 % (42-78); TOTAL CELLS COUNTED 100
[2020-02-08 07:24] LABS: PLATELET COMMENT ADEQUATE; RBC MORPHOLOGY COMMENT NORMO-CYTIC/CHROMIC
[2020-02-08] MEDS ORDERED: NORMAL SALINE 250 ML IV PRN ×2 (07:40)
[2020-02-08] MEDS: HYDROCODONE/ACETAMINOPHEN 10-325 MG TABLET PO PRN (08:48)
[2020-02-08] MEDS: CYANOCOBALAMIN (VITAMIN B-12) 1,000 MCG TABLET PO SCH (09:19)
[2020-02-08] MEDS: FAMOTIDINE INJ/PF 20 MG/2 ML SDV IV SCH ×2 (09:19→22:07)
[2020-02-08] MEDS: DOCUSATE SODIUM 100 MG CAPSULE PO SCH ×2 (09:19→17:38)
[2020-02-08] MEDS: ASPIRIN 81 MG TABLET, ENT COATED PO SCH (09:19)
[2020-02-08] MEDS: FINASTERIDE 5 MG TABLET PO SCH (09:19)
--- NOTE | 2020-02-08 11:09 | PDOC PROGRESS REPORT ---
Subjective Date:: 02/08/20 Reason For Visit: ACUTE GALLSTONE PANCREATITIS Physical Exam Vital Signs: Temp Pulse Resp BP Pulse Ox 99.4 F 72 14 141/61 H 99 02/08/20 10:29 02/08/20 10:29 02/08/20 10:29 02/08/20 10:29 02/08/20 10:29 Intake & Output 02/07/20 02/08/20 02/09/20 06:59 06:59 06:59 Intake Total 7250 2760 300 Output Total 3625 1410 40 Balance 3625 1350 260 Weight 128 kg 130.9 kg Results Laboratory Results: 02/08/20 06:20 02/08/20 06:20 02/06/20 02/08/20 02/08/20 12:59 06:20 06:20 WBC 13.6 H RBC 2.63 L Hgb 7.8 L Hct 23.5 L MCV 89 MCH 29.7 MCHC 33.2 RDW 13.0 Plt Count 162 Seg Neutrophils % Not Reportable Sodium 134.9 L Potassium 4.1 Chloride 108 H Carbon Dioxide 20 L Anion Gap 7 BUN 16 Creatinine 0.96 Est GFR ( Amer) > 60 Glucose 123 H Calcium 7.8 L Total Bilirubin 0.5 AST 40 Alkaline Phosphatase 120 Total Protein 4.7 L Albumin 2.2 L Blood Type O POSITIVE Antibody Screen NEGATIVE Impressions: Abdomen/Pelvis CT 02/03/20 22:15 IMPRESSION: 1. Inflammatory changes adjacent to the head of the pancreas and proximal duodenum. Main differentials are pancreatitis or peptic ulcer disease. Correlation with serum lipase is recommended. 2. Cholelithiasis. Abdomen Ultrasound 02/04/20 07:01 IMPRESSION: Cholelithiasis. No evidence of acute cholecystitis. Chest X-Ray 02/04/20 07:50 IMPRESSION: NO ACUTE RADIOGRAPHIC FINDING IN THE CHEST. Catheter Placement 02/05/20 00:00 IMPRESSION: Please see combined report for performance of procedure and radiologic supervision and interpretation. Fluoroscopy 02/05/20 00:00 IMPRESSION: IMAGE(S) OBTAINED DURING PROCEDURE. Cholangiogram 02/06/20 00:00 IMPRESSION: INTRAOPERATIVE CHOLANGIOGRAM. Assessment & Plan - Time Anticipated Discharge Disposition: Home, Self Care Anticipated Discharge Timeframe: within 48 hours - Plan Summary Plan Summary: 79-year-old male status post laparoscopic converted to open cholecystectomy. T he patient reports that his pain is improving. He has ambulated in the hallways several times. He denies any nausea or vomiting. He is tolerating a regular diet. Cont oral pain medications. Aggressive pulmonary toilet. Ambulate in hallways. Discharge home when okay with medicine service.
[2020-02-08] MEDS ORDERED: FUROSEMIDE 40 MG TABLET PO ONE (12:00)
--- NOTE | 2020-02-08 12:08 | PDOC PROGRESS REPORT ---
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 In ED he was noted to have leukocytosis, transaminitis, hyperbilirubinemia, elevated lipase, abdominal CT and ultrasound showed cholelithiasis without inflammatory changes, inflammatory changes adjacent to the head of the pancreas and proximal duodenum. ED physician had consulted Dr. Stevenson product tester and surgery and the recommendation was for patient to be admitted under medicine and they will follow up as consult. 02/05/2020. No acute events overnight. Saw patient this morning, comfortably sitting in bed in no apparent distress, accompanied by his , abdominal pain is improving, patient had a bowel movement this morning, passing flatus, denies any shortness of breath, fever, chills, diarrhea or any vomiting. Patient is complaining of intermittent nausea. Patient is scheduled for possible ERCP by Dr. Stevenson product tester today. 02/06/2020. No acute events overnight. Patient complaining of persistent right upper quadrant abdominal pain 2/4 on severity scale, as well as having a dry mouth as patient is n.p.o. for possible laparoscopic cholecystectomy, otherwise patient is denying any fever, chills, nausea, vomiting. Patient is passing flatus and has not had a bowel movement since yesterday. 02/07/2020. No acute events overnight. Patient is status post open laparoscopic converted to open cholecystectomy, still complaining of mild abdominal pain, is p.o. tolerant, has not had a bowel, passing flatus, denies any fever, chills, nausea, vomiting, diarrhea, constipation or any urinary symptoms. 02/08/2020. No acute events overnight. Patient still complaining of persistent right upper quadrant abdominal pain, however he is p.o. tolerant and having normal bowel and bladder movements, planing of excessive EKG from surgical area, is any fever, chills, nausea, vomiting, diarrhea, constipation or any urinary symptoms. Reason For Visit: ACUTE GALLSTONE PANCREATITIS Physical Exam Vital Signs: Temp Pulse Resp BP Pulse Ox 99.0 F 66 18 127/60 H 99 02/08/20 11:43 02/08/20 11:43 02/08/20 11:43 02/08/20 11:43 02/08/20 11:43 Intake & Output 02/07/20 02/08/20 02/09/20 06:59 06:59 06:59 Intake Total 7250 2760 300 Output Total 3625 1410 40 Balance 3625 1350 260 Weight 128 kg 130.9 kg General appearance: PRESENT: no acute distress, obese, well-developed, well- nourished Head exam: PRESENT: atraumatic, normocephalic Respiratory exam: PRESENT: clear to auscultation vannesa. ABSENT: rales, rhonchi, wheezes Cardiovascular exam: PRESENT: RRR. ABSENT: diastolic murmur, rubs, systolic murmur GI/Abdominal exam: PRESENT: normal bowel sounds, soft, other - WAYLON drain patent, filled with serosanguineous fluid. No active discharge from surgical site however dressing noted to be wet.. ABSENT: distended, guarding, mass, organolmegaly, rebound, tenderness Neurological exam: PRESENT: alert, awake, oriented to person, oriented to place, oriented to time, oriented to situation, CN II-XII grossly intact. ABSENT: motor sensory deficit Results Laboratory Results: 02/08/20 06:20 02/08/20 06:20 02/06/20 02/08/20 02/08/20 12:59 06:20 06:20 WBC 13.6 H RBC 2.63 L Hgb 7.8 L Hct 23.5 L MCV 89 MCH 29.7 MCHC 33.2 RDW 13.0 Plt Count 162 Seg Neutrophils % Not Reportable Sodium 134.9 L Potassium 4.1 Chloride 108 H Carbon Dioxide 20 L Anion Gap 7 BUN 16 Creatinine 0.96 Est GFR ( Amer) > 60 Glucose 123 H Calcium 7.8 L Total Bilirubin 0.5 AST 40 Alkaline Phosphatase 120 Total Protein 4.7 L Albumin 2.2 L Blood Type O POSITIVE Antibody Screen NEGATIVE Impressions: Abdomen/Pelvis CT 02/03/20 22:15 IMPRESSION: 1. Inflammatory changes adjacent to the head of the pancreas and proximal duodenum. Main differentials are pancreatitis or peptic ulcer disease. Correlation with serum lipase is recommended. 2. Cholelithiasis. Abdomen Ultrasound 02/04/20 07:01 IMPRESSION: Cholelithiasis. No evidence of acute cholecystitis. Chest X-Ray 02/04/20 07:50 IMPRESSION: NO ACUTE RADIOGRAPHIC FINDING IN THE CHEST. Catheter Placement 02/05/20 00:00 IMPRESSION: Please see combined report for performance of procedure and radiologic supervision and interpretation. Fluoroscopy 02/05/20 00:00 IMPRESSION: IMAGE(S) OBTAINED DURING PROCEDURE. Cholangiogram 02/06/20 00:00 IMPRESSION: INTRAOPERATIVE CHOLANGIOGRAM. Assessment and Plan - Diagnosis (1) Acute blood loss anemia Is this a current diagnosis for this admission?: Yes Plan: Hemoglobin dropping however no sign of active bleeding for serosanguineous fluid in the WAYLON drain. Patient had a complicated laparoscopic cholecystectomy which was converted to open cholecystectomy. Please refer to surgery note. Patient had a blood loss of 1200 cc during the operation. Of note patient also have chronic anemia due to his underlying Crohn's disease. Scheduled to receive 2 PRBC today. Monitor H&H. Supportive transfusion, goal of hemoglobin is 9-10 given underlying comorbidities. (2) Cholelithiasis Qualifiers: Cholelithiasis location: gallbladder Cholecystitis presence: without cholecystitis Biliary obstruction: with biliary obstruction Qualified Code(s): K80.21 - Calculus of gallbladder without cholecystitis with obstruction Is this a current diagnosis for this admission?: Yes Plan: Day 2 status post open cholecystectomy. WAYLON drain in place, patent, filled with serosanguineous fluid. Based on ultrasound findings no acute cholecystitis. Monitor vitals, monitor electrolytes, monitor volume status. Surgery following. (3) Acute gallstone pancreatitis Is this a current diagnosis for this admission?: Yes Plan: Status post ERCP 02/05/2020. 6 mm stone removed from common bile duct. Lipase WNL. Abdominal pain improving, liver chemistries are trending up compared to yesterday. History of cholelithiasis. Denies any abdominal trauma, malignancy or EtOH abuse. CT abdomen and ultrasound of abdomen positive for cholelithiasis without acute cholecystitis and inflammation of the head of the pancreas. Continue volume resuscitation guided by volume status, pain management with opioid and nonopioid medications, monitor vitals status, monitor electrolytes. (4) CAD (coronary artery disease) Qualifiers: Coronary Disease-Associated Artery/Lesion type: [place] artery [place] vs. transplanted heart: [place] heart Is this a current diagnosis for this admission?: Yes Plan: Status post PCI with stent placement. Denies any anginal symptoms. Resume home meds. Hold lisinopril given EMA. Resume lisinopril once kidney function normalizes. (5) Atrial fibrillation Qualifiers: Atrial fibrillation type: permanent Qualified Code(s): I48.21 - Permanent atrial fibrillation Is this a current diagnosis for this admission?: Yes Plan: History of chronic persistent atrial fibrillation. Status post maze procedure pacemaker placement. Resume home meds. Outpatient PCP and cardiology follow-up. (6) Hyperlipidemia Is this a current diagnosis for this admission?: Yes Plan: Resume home meds. Diet and lifestyle modification recommended. Triglycerides WNL. (7) Diabetes Qualifiers: Diabetes mellitus type: type 2 Is this a current diagnosis for this admission?: Yes Plan: Takes metformin at home. Hold metformin given p.o. intolerance and EMA. Diabetic diet, Accu-Chek, sliding scale insulin, long-acting insulin. Hypoglycemia protocol. Resume home meds upon discharge. (8) Crohn's disease Is this a current diagnosis for this admission?: Yes Plan: On remission. Taking his Stelara. Resume home meds. Outpatient PCP and rheumatology follow-up. (9) Leukocytosis Qualifiers: Leukocytosis type: bandemia Qualified Code(s): D72.825 - Bandemia Is this a current diagnosis for this admission?: Yes Plan: Mild improvement. Afebrile. Presented with neutrophilic leukocytosis with bandemia. Ultrasound of abdomen negative for acute cholecystitis. Day 5 IV antibiotics. Day 5 IV ceftriaxone. Cultures negative so far. Continue empiric IV antibiotics. Follow-up cultures. (10) Acute kidney injury Is this a current diagnosis for this admission?: Yes Plan: Resolved. Prerenal most likely due to nausea and vomiting caused by acute pancreatitis. Creatinine improving, nonoliguric, electrolytes WNL. Continue cautious volume resuscitation guided by volume status. Strict in and out. Avoid nephrotoxic meds. - Time Time Spent with patient: 35 or more minutes Medications reviewed and adjusted accordingly: Yes Anticipated Discharge Disposition: Home, Self Care Anticipated Discharge Timeframe: within 48 hours
[2020-02-08] MEDS: CEFTRIAXONE 1 GM/D5W RTU 1 GM/50 ML RTUPB IV SCH (14:29)
[2020-02-08] MEDS: MORPHINE SULFATE 10 MG/ML INJ IV PRN ×3 (14:30→22:06)
[2020-02-08 15:32] LABS: HEMATOCRIT 27.7 % (37.9-51.0); HEMOGLOBIN 9.5 g/dL (13.5-17.0); MEAN CORPUSCULAR HEMOGLOBIN 30.1 pg (27.0-33.4); MEAN CORPUSCULAR HGB CONC 34.4 g/dL (32.0-36.0); MEAN CORPUSCULAR VOLUME 87 fl (80-97); PLATELET COUNT 176 10^3/uL (150-450); RED BLOOD COUNT 3.17 10^6/uL (4.35-5.55); WHITE BLOOD COUNT 14.6 10^3/uL (4.0-10.5)
[2020-02-08 16:43] LABS: ABSOLUTE MONOCYTES # (MANUAL) 0.7 10^3/uL (0.1-1.4); BAND NEUTROPHILS % (MANUAL) 1 % (3-5); BASOPHILS % (MANUAL) 0 % (0-2); EOSINOPHILS % (MANUAL) 0 % (0-6); LYMPHOCYTES % (MANUAL) 7 % (13-45); MONOCYTES % (MANUAL) 5 % (3-13); PLATELET COMMENT ADEQUATE; RBC MORPHOLOGY COMMENT NORMO-CYTIC/CHROMIC; SEGMENTED NEUTROPHILS % (MAN) 87 % (42-78); TOTAL CELLS COUNTED 100; TOXIC GRANULATION SLIGHT
[2020-02-08] MEDS: PROMETHAZINE HCL INJ 25 MG/1 ML VIAL IV PRN (18:40)
[2020-02-08] MEDS ORDERED: INSULIN LISPRO 100 UNIT/ML 3 ML VIAL SUBCUT ONE (22:30)
[2020-02-08] MEDS: TAMSULOSIN HCL 0.4 MG CAP.SR.24H PO SCH (23:13)
[2020-02-09] MEDS: HEPARIN SOD (PORCINE) 5,000 UNIT/ML 1 ML VIAL SUBCUT SCH ×3 (05:03→21:54)
[2020-02-09 05:40] LABS: HEMATOCRIT 26.2 % (37.9-51.0); HEMOGLOBIN 9.1 g/dL (13.5-17.0); MEAN CORPUSCULAR HEMOGLOBIN 30.1 pg (27.0-33.4); MEAN CORPUSCULAR HGB CONC 34.5 g/dL (32.0-36.0); MEAN CORPUSCULAR VOLUME 87 fl (80-97); PLATELET COUNT 175 10^3/uL (150-450); RED BLOOD COUNT 3.01 10^6/uL (4.35-5.55); WHITE BLOOD COUNT 15.4 10^3/uL (4.0-10.5)
[2020-02-09 06:01] LABS: ALBUMIN 2.2 g/dL (3.5-5.0); ALKALINE PHOSPHATASE 106 U/L (38-126); ANION GAP 8 (5-19); ASPARTATE AMINO TRANSFERASE 34 U/L (17-59); BILIRUBIN,DIRECT 0.3 mg/dL (0.0-0.4); BILIRUBIN,TOTAL 0.7 mg/dL (0.2-1.3); BLOOD UREA NITROGEN 13 mg/dL (7-20); CALCIUM 8.1 mg/dL (8.4-10.2); CARBON DIOXIDE 21 mmol/L (22-30); CHLORIDE 103 mmol/L (98-107); GLUCOSE 124 mg/dL (75-110); TOTAL PROTEIN 4.6 g/dL (6.3-8.2)
[2020-02-09 07:08] LABS: ABSOLUTE LYMPHOCYTES# (MANUAL) 1.5 10^3/uL (0.5-4.7); ABSOLUTE MONOCYTES # (MANUAL) 1.2 10^3/uL (0.1-1.4); BASOPHILS % (MANUAL) 0 % (0-2); EOSINOPHILS % (MANUAL) 0 % (0-6); LYMPHOCYTES % (MANUAL) 10 % (13-45); MONOCYTES % (MANUAL) 8 % (3-13); PLATELET COMMENT ADEQUATE; SEGMENTED NEUTROPHILS % (MAN) 82 % (42-78); TOTAL CELLS COUNTED 100
[2020-02-09 07:09] LABS: HYPERSEGMENTED NEUTROPHILS PRESENT
[2020-02-09 07:10] LABS: OVALOCYTES SLIGHT
[2020-02-09 07:11] LABS: POLYCHROMASIA SLIGHT; SCHISTOCYTES SLIGHT
[2020-02-09 07:12] LABS: RBC MORPHOLOGY COMMENT NORMO-CYTIC/CHROMIC
[2020-02-09] MEDS: INSULIN LISPRO 100 UNIT/ML 3 ML VIAL SUBCUT SCH ×4 (08:01→22:00)
[2020-02-09] MEDS: MORPHINE SULFATE 10 MG/ML INJ IV PRN ×2 (08:13→12:53)
--- NOTE | 2020-02-09 10:52 | PDOC PROGRESS REPORT ---
Subjective Date:: 02/09/20 Subjective:: feels ok kenan reg diet passing flatus, some stool still with ruq incisional pain Reason For Visit: ACUTE GALLSTONE PANCREATITIS Physical Exam Vital Signs: Temp Pulse Resp BP Pulse Ox 98.6 F 67 20 133/59 H 97 02/09/20 08:37 02/09/20 07:00 02/09/20 04:18 02/09/20 04:18 02/09/20 04:18 Intake & Output 02/08/20 02/09/20 02/10/20 06:59 06:59 06:59 Intake Total 2760 1760 Output Total 1410 1565 Balance 1350 195 Weight 130.9 kg 127 kg General appearance: PRESENT: no acute distress Head exam: PRESENT: normocephalic Eye exam: PRESENT: EOMI Mouth exam: PRESENT: moist Neck exam: PRESENT: full ROM Respiratory exam: PRESENT: clear to auscultation vannesa Cardiovascular exam: PRESENT: RRR Pulses: PRESENT: normal radial pulses, normal femoral pulses Breast: PRESENT: Normal GI/Abdominal exam: PRESENT: soft, other - wound clean, navarro serous Rectal exam: PRESENT: deferred Extremities exam: PRESENT: full ROM Neurological exam: PRESENT: alert, awake, oriented to person, oriented to place Psychiatric exam: PRESENT: appropriate affect Skin exam: PRESENT: dry Results Laboratory Results: 02/09/20 04:58 02/09/20 04:58 02/06/20 02/08/20 02/09/20 12:59 15:18 04:58 WBC 14.6 H 15.4 H RBC 3.17 L 3.01 L Hgb 9.5 L 9.1 L Hct 27.7 L 26.2 L MCV 87 87 MCH 30.1 30.1 MCHC 34.4 34.5 RDW 13.0 13.0 Plt Count 176 175 Seg Neutrophils % Not Reportable Not Reportable Sodium Potassium Chloride Carbon Dioxide Anion Gap BUN Creatinine Est GFR ( Amer) Glucose Calcium Magnesium Total Bilirubin AST Alkaline Phosphatase Total Protein Albumin Blood Type O POSITIVE Antibody Screen NEGATIVE 02/09/20 04:58 WBC RBC Hgb Hct MCV MCH MCHC RDW Plt Count Seg Neutrophils % Sodium 132.4 L Potassium 4.0 Chloride 103 Carbon Dioxide 21 L Anion Gap 8 BUN 13 Creatinine 0.91 Est GFR ( Amer) > 60 Glucose 124 H Calcium 8.1 L Magnesium 1.5 L Total Bilirubin 0.7 AST 34 Alkaline Phosphatase 106 Total Protein 4.6 L Albumin 2.2 L Blood Type Antibody Screen 02/06/20 11:51 Peritoneal Gram Stain - Final Impressions: Abdomen/Pelvis CT 02/03/20 22:15 IMPRESSION: 1. Inflammatory changes adjacent to the head of the pancreas and proximal duodenum. Main differentials are pancreatitis or peptic ulcer disease. Correlation with serum lipase is recommended. 2. Cholelithiasis. Abdomen Ultrasound 02/04/20 07:01 IMPRESSION: Cholelithiasis. No evidence of acute cholecystitis. Chest X-Ray 02/04/20 07:50 IMPRESSION: NO ACUTE RADIOGRAPHIC FINDING IN THE CHEST. Catheter Placement 02/05/20 00:00 IMPRESSION: Please see combined report for performance of procedure and radiologic supervision and interpretation. Fluoroscopy 02/05/20 00:00 IMPRESSION: IMAGE(S) OBTAINED DURING PROCEDURE. Cholangiogram 02/06/20 00:00 IMPRESSION: INTRAOPERATIVE CHOLANGIOGRAM. Assessment & Plan - Time Anticipated Discharge Disposition: Home, Self Care Anticipated Discharge Timeframe: within 48 hours - Plan Summary Plan Summary: received 2 units prbc yesterday wbc 15k today still iwth incisional pain using dilauded/morphine hb this am 9.1 plan would transition to oral pain meds cont to trend h/h and wbc still on iv abx
[2020-02-09] MEDS: DOCUSATE SODIUM 100 MG CAPSULE PO SCH ×2 (10:53→18:08)
[2020-02-09] MEDS ORDERED: OXYCODONE-ACETAMINOPHEN 5-325 MG TABLET PO PRN (10:53)
[2020-02-09] MEDS: ASPIRIN 81 MG TABLET, ENT COATED PO SCH (10:54)
[2020-02-09] MEDS: MAGNESIUM OXIDE 400 MG TABLET PO SCH (10:55)
[2020-02-09] MEDS: FAMOTIDINE INJ/PF 20 MG/2 ML SDV IV SCH ×2 (10:55→22:00)
[2020-02-09] MEDS: TAMSULOSIN HCL 0.4 MG CAP.SR.24H PO SCH (10:55)
[2020-02-09] MEDS: FINASTERIDE 5 MG TABLET PO SCH (10:56)
[2020-02-09] MEDS: CYANOCOBALAMIN (VITAMIN B-12) 1,000 MCG TABLET PO SCH (10:56)
[2020-02-09] MEDS: CEFTRIAXONE 1 GM/D5W RTU 1 GM/50 ML RTUPB IV SCH (10:56)
--- NOTE | 2020-02-09 12:31 | PDOC PROGRESS REPORT ---
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 In ED he was noted to have leukocytosis, transaminitis, hyperbilirubinemia, elevated lipase, abdominal CT and ultrasound showed cholelithiasis without inflammatory changes, inflammatory changes adjacent to the head of the pancreas and proximal duodenum. ED physician had consulted Dr. Stevenson hha and surgery and the recommendation was for patient to be admitted under medicine and they will follow up as consult. 02/05/2020. No acute events overnight. Saw patient this morning, comfortably sitting in bed in no apparent distress, accompanied by his , abdominal pain is improving, patient had a bowel movement this morning, passing flatus, denies any shortness of breath, fever, chills, diarrhea or any vomiting. Patient is complaining of intermittent nausea. Patient is scheduled for possible ERCP by Dr. Stevenson hha today. 02/06/2020. No acute events overnight. Patient complaining of persistent right upper quadrant abdominal pain 2/4 on severity scale, as well as having a dry mouth as patient is n.p.o. for possible laparoscopic cholecystectomy, otherwise patient is denying any fever, chills, nausea, vomiting. Patient is passing flatus and has not had a bowel movement since yesterday. 02/07/2020. No acute events overnight. Patient is status post open laparoscopic converted to open cholecystectomy, still complaining of mild abdominal pain, is p.o. tolerant, has not had a bowel, passing flatus, denies any fever, chills, nausea, vomiting, diarrhea, constipation or any urinary symptoms. 02/08/2020. No acute events overnight. Patient still complaining of persistent right upper quadrant abdominal pain, however he is p.o. tolerant and having normal bowel and bladder movements, planing of excessive EKG from surgical area, is any fever, chills, nausea, vomiting, diarrhea, constipation or any urinary symptoms. 02/09/2020. No acute events overnight. Patient still complaining of pain at his surgical area in the right upper quadrant. P.o. tolerant, having normal bowel movement, denies any fever, chills, nausea, vomiting, diarrhea, constipation or any urinary symptoms. Patient is still having significant leukocytosis with no obvious sign of infection. Possible discharge home tomorrow. Reason For Visit: ACUTE GALLSTONE PANCREATITIS Physical Exam Vital Signs: Temp Pulse Resp BP Pulse Ox 98.6 F 67 20 133/59 H 97 02/09/20 08:37 02/09/20 07:00 02/09/20 04:18 02/09/20 04:18 02/09/20 04:18 Intake & Output 02/08/20 02/09/20 02/10/20 06:59 06:59 06:59 Intake Total 2760 1760 240 Output Total 1410 1565 Balance 1350 195 240 Weight 130.9 kg 127 kg General appearance: PRESENT: no acute distress, well-developed, well-nourished Head exam: PRESENT: atraumatic, normocephalic Respiratory exam: PRESENT: clear to auscultation vannesa. ABSENT: rales, rhonchi, wheezes Cardiovascular exam: PRESENT: RRR. ABSENT: diastolic murmur, rubs, systolic murmur GI/Abdominal exam: PRESENT: normal bowel sounds, soft, other - WAYLON in place, filled with serous fluid, no sign of leakage.. ABSENT: distended, guarding, mass, organolmegaly, rebound, tenderness Neurological exam: PRESENT: alert, awake, oriented to person, oriented to place, oriented to time, oriented to situation, CN II-XII grossly intact. ABSENT: motor sensory deficit Results Laboratory Results: 02/09/20 04:58 02/09/20 04:58 02/08/20 02/09/20 02/09/20 15:18 04:58 04:58 WBC 14.6 H 15.4 H RBC 3.17 L 3.01 L Hgb 9.5 L 9.1 L Hct 27.7 L 26.2 L MCV 87 87 MCH 30.1 30.1 MCHC 34.4 34.5 RDW 13.0 13.0 Plt Count 176 175 Seg Neutrophils % Not Reportable Not Reportable Sodium 132.4 L Potassium 4.0 Chloride 103 Carbon Dioxide 21 L Anion Gap 8 BUN 13 Creatinine 0.91 Est GFR ( Amer) > 60 Glucose 124 H Calcium 8.1 L Magnesium 1.5 L Total Bilirubin 0.7 AST 34 Alkaline Phosphatase 106 Total Protein 4.6 L Albumin 2.2 L 02/06/20 11:51 Peritoneal Gram Stain - Final Impressions: Abdomen/Pelvis CT 02/03/20 22:15 IMPRESSION: 1. Inflammatory changes adjacent to the head of the pancreas and proximal duodenum. Main differentials are pancreatitis or peptic ulcer disease. Correlation with serum lipase is recommended. 2. Cholelithiasis. Abdomen Ultrasound 02/04/20 07:01 IMPRESSION: Cholelithiasis. No evidence of acute cholecystitis. Chest X-Ray 02/04/20 07:50 IMPRESSION: NO ACUTE RADIOGRAPHIC FINDING IN THE CHEST. Catheter Placement 02/05/20 00:00 IMPRESSION: Please see combined report for performance of procedure and radiologic supervision and interpretation. Fluoroscopy 02/05/20 00:00 IMPRESSION: IMAGE(S) OBTAINED DURING PROCEDURE. Cholangiogram 02/06/20 00:00 IMPRESSION: INTRAOPERATIVE CHOLANGIOGRAM. Assessment and Plan - Diagnosis (1) Acute blood loss anemia Is this a current diagnosis for this admission?: Yes Plan: Status post 2 PRBC transfusion. H&H stable. No acute sign of bleeding. Patient had a complicated laparoscopic cholecystectomy which was converted to open cholecystectomy. Please refer to surgery note. Patient had a blood loss of 1200 cc during the operation. Of note patient also have chronic anemia due to his underlying Crohn's disease. Monitor H&H. Supportive transfusion, goal of hemoglobin is 9-10 given underlying comorbidities. (2) Cholelithiasis Qualifiers: Cholelithiasis location: gallbladder Cholecystitis presence: without cholecystitis Biliary obstruction: with biliary obstruction Qualified Code(s): K80.21 - Calculus of gallbladder without cholecystitis with obstruction Is this a current diagnosis for this admission?: Yes Plan: Day 3 status post open cholecystectomy. WAYLON drain in place, patent, filled with serous fluid. Based on ultrasound findings no acute cholecystitis. Monitor vitals, monitor electrolytes, monitor volume status. Surgery following. (3) Acute gallstone pancreatitis Is this a current diagnosis for this admission?: Yes Plan: Status post ERCP 02/05/2020. 6 mm stone removed from common bile duct. Lipase WNL. Abdominal pain improving, liver chemistries are trending up compared to yesterday. History of cholelithiasis. Denies any abdominal trauma, malignancy or EtOH abuse. CT abdomen and ultrasound of abdomen positive for cholelithiasis without acute cholecystitis and inflammation of the head of the pancreas. Continue volume resuscitation guided by volume status, pain management with opioid and nonopioid medications, monitor vitals status, monitor electrolytes. (4) CAD (coronary artery disease) Qualifiers: Coronary Disease-Associated Artery/Lesion type: [place] artery [place] vs. transplanted heart: [place] heart Is this a current diagnosis for this admission?: Yes Plan: Status post PCI with stent placement. Denies any anginal symptoms. Resume home meds. Hold lisinopril given EMA. Resume lisinopril once kidney function normalizes. (5) Atrial fibrillation Qualifiers: Atrial fibrillation type: permanent Qualified Code(s): I48.21 - Permanent atrial fibrillation Is this a current diagnosis for this admission?: Yes Plan: History of chronic persistent atrial fibrillation. Status post maze procedure pacemaker placement. Resume home meds. Outpatient PCP and cardiology follow-up. (6) Hyperlipidemia Is this a current diagnosis for this admission?: Yes Plan: Resume home meds. Diet and lifestyle modification recommended. Triglycerides WNL. (7) Diabetes Qualifiers: Diabetes mellitus type: type 2 Is this a current diagnosis for this admission?: Yes Plan: Takes metformin at home. Hold metformin given p.o. intolerance and EMA. Diabetic diet, Accu-Chek, sliding scale insulin, long-acting insulin. Hypoglycemia protocol. Resume home meds upon discharge. (8) Crohn's disease Is this a current diagnosis for this admission?: Yes Plan: On remission. Taking his Stelara. Resume home meds. Outpatient PCP and rheumatology follow-up. (9) Leukocytosis Qualifiers: Leukocytosis type: bandemia Qualified Code(s): D72.825 - Bandemia Is this a current diagnosis for this admission?: Yes Plan: Mild improvement. Afebrile. Presented with neutrophilic leukocytosis with bandemia. Ultrasound of abdomen negative for acute cholecystitis. Day 6 IV antibiotics. Day 6 IV ceftriaxone. Cultures negative so far. Continue empiric IV antibiotics. Follow-up cultures. (10) Acute kidney injury Is this a current diagnosis for this admission?: Yes Plan: Resolved. Prerenal most likely due to nausea and vomiting caused by acute pancreatitis. Creatinine improving, nonoliguric, electrolytes WNL. Continue cautious volume resuscitation guided by volume status. Strict in and o ut. Avoid nephrotoxic meds. - Time Time Spent with patient: 25-34 minutes Medications reviewed and adjusted accordingly: Yes Anticipated Discharge Disposition: Home, Self Care Anticipated Discharge Timeframe: within 48 hours
[2020-02-09] MEDS ORDERED: POLYETHYLENE GLYCOL 3350 POWDER 17 GM/1 PACKET ONE (15:39)
[2020-02-09] MEDS: HYDROCODONE/ACETAMINOPHEN 10-325 MG TABLET PO PRN ×2 (15:44→20:54)
[2020-02-09] MEDS: POLYETHYLENE GLYCOL 3350 POWDER 17 GM/1 PACKET PO PRN (16:59)
[2020-02-10] MEDS: HYDROCODONE/ACETAMINOPHEN 10-325 MG TABLET PO PRN ×5 (02:16→22:24)
[2020-02-10] MEDS: HEPARIN SOD (PORCINE) 5,000 UNIT/ML 1 ML VIAL SUBCUT SCH ×3 (06:24→21:15)
[2020-02-10 07:08] LABS: HEMOGLOBIN 8.6 g/dL (13.5-17.0); MEAN CORPUSCULAR HEMOGLOBIN 30.2 pg (27.0-33.4); MEAN CORPUSCULAR HGB CONC 34.3 g/dL (32.0-36.0); MEAN CORPUSCULAR VOLUME 88 fl (80-97); PLATELET COUNT 204 10^3/uL (150-450); RED BLOOD COUNT 2.84 10^6/uL (4.35-5.55); RED CELL DISTRIBUTION WIDTH 13.4 % (11.5-14.0); WHITE BLOOD COUNT 12.6 10^3/uL (4.0-10.5)
[2020-02-10] MEDS: INSULIN LISPRO 100 UNIT/ML 3 ML VIAL SUBCUT SCH ×4 (08:06→21:21)
[2020-02-10] MEDS: MAGNESIUM OXIDE 400 MG TABLET PO SCH (09:47)
[2020-02-10] MEDS: DOCUSATE SODIUM 100 MG CAPSULE PO SCH ×2 (09:47→17:39)
[2020-02-10] MEDS: TAMSULOSIN HCL 0.4 MG CAP.SR.24H PO SCH (09:47)
[2020-02-10] MEDS: FAMOTIDINE INJ/PF 20 MG/2 ML SDV IV SCH ×2 (09:47→21:21)
[2020-02-10] MEDS: CYANOCOBALAMIN (VITAMIN B-12) 1,000 MCG TABLET PO SCH (09:47)
[2020-02-10] MEDS: ASPIRIN 81 MG TABLET, ENT COATED PO SCH (09:48)
[2020-02-10] MEDS: FINASTERIDE 5 MG TABLET PO SCH (09:49)
[2020-02-10] MEDS: CEFTRIAXONE 1 GM/D5W RTU 1 GM/50 ML RTUPB IV SCH (09:59)
--- NOTE | 2020-02-10 10:28 | PDOC PROGRESS REPORT ---
Subjective Date:: 02/10/20 Reason For Visit: ACUTE GALLSTONE PANCREATITIS feel better; got 2 u rbcs over weekend; tolerating PO Physical Exam Vital Signs: Temp Pulse Resp BP Pulse Ox 97.7 F 73 16 148/59 H 98 02/10/20 07:58 02/10/20 07:58 02/10/20 07:58 02/10/20 07:58 02/10/20 07:58 Intake & Output 02/09/20 02/10/20 02/11/20 06:59 06:59 06:59 Intake Total 1760 1310 260 Output Total 1565 30 Balance 195 1280 260 Weight 127 kg 127 kg General appearance: PRESENT: no acute distress GI/Abdominal exam: PRESENT: other - B-9; regan all intact; drain with SS flui d, removed uneventfully Results Laboratory Results: 02/10/20 05:52 02/09/20 04:58 02/10/20 05:52 WBC 12.6 H RBC 2.84 L Hgb 8.6 L Hct 25.0 L MCV 88 MCH 30.2 MCHC 34.3 RDW 13.4 Plt Count 204 02/06/20 11:51 Peritoneal Gram Stain - Final 02/06/20 11:51 Peritoneal Body Fluid Culture - Final NO AEROBIC OR ANAEROBIC ORGANISMS RECOVERED 02/04/20 16:32 Blood Blood Culture - Final NO GROWTH IN 5 DAYS 02/04/20 14:15 Blood Blood Culture - Final NO GROWTH IN 5 DAYS Impressions: Abdomen/Pelvis CT 02/03/20 22:15 IMPRESSION: 1. Inflammatory changes adjacent to the head of the pancreas and proximal duodenum. Main differentials are pancreatitis or peptic ulcer disease. Correlation with serum lipase is recommended. 2. Cholelithiasis. Abdomen Ultrasound 02/04/20 07:01 IMPRESSION: Cholelithiasis. No evidence of acute cholecystitis. Chest X-Ray 02/04/20 07:50 IMPRESSION: NO ACUTE RADIOGRAPHIC FINDING IN THE CHEST. Catheter Placement 02/05/20 00:00 IMPRESSION: Please see combined report for performance of procedure and radiologic supervision and interpretation. Fluoroscopy 02/05/20 00:00 IMPRESSION: IMAGE(S) OBTAINED DURING PROCEDURE. Cholangiogram 02/06/20 00:00 IMPRESSION: INTRAOPERATIVE CHOLANGIOGRAM. Assessment & Plan - Diagnosis (1) Acute gallstone pancreatitis Is this a current diagnosis for this admission?: Yes Plan: IMP: POD 4 open yvan for A and C C, doing well; WBC down; drain out PLAN: 1. D/C home; RTC 1-[address] [place] [facility] [place] [place] [facility] 3. No need for PO abx (2) Abnormal liver function Is this a current diagnosis for this admission?: Yes (3) CAD (coronary artery disease) Qualifiers: Coronary Disease-Associated Artery/Lesion type: [place] artery [place] vs. transplanted heart: [place] heart Is this a current diagnosis for this admission?: Yes (4) Crohn's disease Is this a current diagnosis for this admission?: Yes - Time Anticipated Discharge Disposition: Home, Self Care Anticipated Discharge Timeframe: within 24 hours Time Spent: 30 to 50 Minutes Medications reviewed and adjusted accordingly: Yes
[2020-02-10] MEDS: POLYETHYLENE GLYCOL 3350 POWDER 17 GM/1 PACKET PO PRN (11:28)
--- NOTE | 2020-02-10 13:31 | PDOC PROGRESS REPORT ---
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 In ED he was noted to have leukocytosis, transaminitis, hyperbilirubinemia, elevated lipase, abdominal CT and ultrasound showed cholelithiasis without inflammatory changes, inflammatory changes adjacent to the head of the pancreas and proximal duodenum. ED physician had consulted Dr. Stevenson awning hanger and surgery and the recommendation was for patient to be admitted under medicine and they will follow up as consult. 02/05/2020. No acute events overnight. Saw patient this morning, comfortably sitting in bed in no apparent distress, accompanied by his , abdominal pain is improving, patient had a bowel movement this morning, passing flatus, denies any shortness of breath, fever, chills, diarrhea or any vomiting. Patient is complaining of intermittent nausea. Patient is scheduled for possible ERCP by Dr. Stevenson awning hanger today. 02/06/2020. No acute events overnight. Patient complaining of persistent right upper quadrant abdominal pain 2/4 on severity scale, as well as having a dry mouth as patient is n.p.o. for possible laparoscopic cholecystectomy, otherwise patient is denying any fever, chills, nausea, vomiting. Patient is passing flatus and has not had a bowel movement since yesterday. 02/07/2020. No acute events overnight. Patient is status post open laparoscopic converted to open cholecystectomy, still complaining of mild abdominal pain, is p.o. tolerant, has not had a bowel, passing flatus, denies any fever, chills, nausea, vomiting, diarrhea, constipation or any urinary symptoms. 02/08/2020. No acute events overnight. Patient still complaining of persistent right upper quadrant abdominal pain, however he is p.o. tolerant and having normal bowel and bladder movements, planing of excessive EKG from surgical area, is any fever, chills, nausea, vomiting, diarrhea, constipation or any urinary symptoms. 02/09/2020. No acute events overnight. Patient still complaining of pain at his surgical area in the right upper quadrant. P.o. tolerant, having normal bowel movement, denies any fever, chills, nausea, vomiting, diarrhea, constipation or any urinary symptoms. Patient is still having significant leukocytosis with no obvious sign of infection. Possible discharge home tomorrow. 02/10/2020. No acute events overnight. Patient is still complaining of pain in the surgical area, has not had a bowel movement, passing flatus, fever, chills, nausea, vomiting. P.o. tolerant. Having normal bladder movement. WAYLON drain has been removed. No sign of more leakage. Patient hemoglobin has dropped to 8.6 today no apparent sign of bleeding, and still has leukocytosis. Possible discharge home tomorrow. Reason For Visit: ACUTE GALLSTONE PANCREATITIS Physical Exam Vital Signs: Temp Pulse Resp BP Pulse Ox 99.1 F 80 16 130/44 H 98 02/10/20 10:51 02/10/20 10:51 02/10/20 10:51 02/10/20 10:51 02/10/20 10:51 Intake & Output 02/09/20 02/10/20 02/11/20 06:59 06:59 06:59 Intake Total 1760 1310 260 Output Total 1565 30 Balance 195 1280 260 Weight 127 kg 127 kg General appearance: PRESENT: no acute distress, obese, well-developed, well- nourished Head exam: PRESENT: atraumatic, normocephalic Neck exam: ABSENT: carotid bruit, JVD, lymphadenopathy, thyromegaly Respiratory exam: PRESENT: clear to auscultation vannesa. ABSENT: rales, rhonchi, wheezes Cardiovascular exam: PRESENT: RRR. ABSENT: diastolic murmur, rubs, systolic murmur GI/Abdominal exam: PRESENT: normal bowel sounds, soft, other - Surgical wound looks clean. WAYLON has been removed.. ABSENT: distended, guarding, mass, organolmegaly, rebound, tenderness Neurological exam: PRESENT: alert, awake, oriented to person, oriented to place, oriented to time, oriented to situation, CN II-XII grossly intact. ABSENT: motor sensory deficit Results Laboratory Results: 02/10/20 05:52 02/09/20 04:58 02/10/20 05:52 WBC 12.6 H RBC 2.84 L Hgb 8.6 L Hct 25.0 L MCV 88 MCH 30.2 MCHC 34.3 RDW 13.4 Plt Count 204 02/06/20 11:51 Peritoneal Gram Stain - Final 02/06/20 11:51 Peritoneal Body Fluid Culture - Final NO AEROBIC OR ANAEROBIC ORGANISMS RECOVERED 02/04/20 16:32 Blood Blood Culture - Final NO GROWTH IN 5 DAYS 02/04/20 14:15 Blood Blood Culture - Final NO GROWTH IN 5 DAYS Impressions: Abdomen/Pelvis CT 02/03/20 22:15 IMPRESSION: 1. Inflammatory changes adjacent to the head of the pancreas and proximal duodenum. Main differentials are pancreatitis or peptic ulcer disease. Correlation with serum lipase is recommended. 2. Cholelithiasis. Abdomen Ultrasound 02/04/20 07:01 IMPRESSION: Cholelithiasis. No evidence of acute cholecystitis. Chest X-Ray 02/04/20 07:50 IMPRESSION: NO ACUTE RADIOGRAPHIC FINDING IN THE CHEST. Catheter Placement 02/05/20 00:00 IMPRESSION: Please see combined report for performance of procedure and ra diologic supervision and interpretation. Fluoroscopy 02/05/20 00:00 IMPRESSION: IMAGE(S) OBTAINED DURING PROCEDURE. Cholangiogram 02/06/20 00:00 IMPRESSION: INTRAOPERATIVE CHOLANGIOGRAM. Assessment and Plan - Diagnosis (1) Acute blood loss anemia Is this a current diagnosis for this admission?: Yes Plan: Status post 2 PRBC transfusion. H&H stable. No acute sign of bleeding. Mild drop in hemoglobin. Patient had a complicated laparoscopic cholecystectomy which was converted to open cholecystectomy. Please refer to surgery note. Patient had a blood loss of 800 cc during the operation. Of note patient also have chronic anemia due to his underlying Crohn's disease. Monitor H&H. Supportive transfusion, goal of hemoglobin is 9-10 given underlying comorbidities. (2) Cholelithiasis Qualifiers: Cholelithiasis location: gallbladder Cholecystitis presence: without cholecystitis Biliary obstruction: with biliary obstruction Qualified Code(s): K80.21 - Calculus of gallbladder without cholecystitis with obstruction Is this a current diagnosis for this admission?: Yes Plan: Day 4 status post open cholecystectomy. WAYLON drain has been removed. No sign of leakage. Based on ultrasound findings no acute cholecystitis. Monitor vitals, monitor electrolytes, monitor volume status. Surgery has signed off. Recommending outpatient follow-up. (3) Acute gallstone pancreatitis Is this a current diagnosis for this admission?: Yes Plan: Resolved. P.o. tolerant. Status post ERCP 02/05/2020. 6 mm stone removed from common bile duct. Lipase WNL. Abdominal pain improving, liver chemistries are trending up compared to yesterday. History of cholelithiasis. Denies any abdominal trauma, malignancy or EtOH abuse. CT abdomen and ultrasound of abdomen positive for cholelithiasis without acute cholecystitis and inflammation of the head of the pancreas. Continue volume resuscitation guided by volume status, pain management with opioid and nonopioid medications, monitor vitals status, monitor electrolytes. (4) CAD (coronary artery disease) Qualifiers: Coronary Disease-Associated Artery/Lesion type: [place] artery [place] vs. transplanted heart: [place] heart Is this a current diagnosis for this admission?: Yes Plan: Status post PCI with stent placement. Denies any anginal symptoms. Resume home meds. Hold lisinopril given EMA. Resume lisinopril once kidney function normalizes. (5) Atrial fibrillation Qualifiers: Atrial fibrillation type: permanent Qualified Code(s): I48.21 - Permanent atrial fibrillation Is this a current diagnosis for this admission?: Yes Plan: History of chronic persistent atrial fibrillation. Status post maze procedure pacemaker placement. Resume home meds. Outpatient PCP and cardiology follow-up. (6) Hyperlipidemia Is this a current diagnosis for this admission?: Yes Plan: Resume home meds. Diet and lifestyle modification recommended. Triglycerides WNL. (7) Diabetes Qualifiers: Diabetes mellitus type: type 2 Is this a current diagnosis for this admission?: Yes Plan: Takes metformin at home. Hold metformin given p.o. intolerance and EMA. Diabetic diet, Accu-Chek, sliding scale insulin, long-acting insulin. Hypoglycemia protocol. Resume home meds upon discharge. (8) Crohn's disease Is this a current diagnosis for this admission?: Yes Plan: On remission. Taking his Stelara. Resume home meds. Outpatient PCP and rheumatology follow-up. (9) Leukocytosis Qualifiers: Leukocytosis type: bandemia Qualified Code(s): D72.825 - Bandemia Is this a current diagnosis for this admission?: Yes Plan: Mild improvement. Afebrile. Presented with neutrophilic leukocytosis with bandemia. Ultrasound of abdomen negative for acute cholecystitis. Day 7 IV antibiotics. Day 7 IV ceftriaxone. Cultures negative so far. Continue empiric IV antibiotics. Follow-up cultures. (10) Acute kidney injury Is this a current diagnosis for this admission?: Yes Plan: Resolved. Prerenal most likely due to nausea and vomiting caused by acute pancreatitis. Creatinine improving, nonoliguric, electrolytes WNL. Continue cautious volume resuscitation guided by volume status. Strict in and out. Avoid nephrotoxic meds. - Time Time Spent with patient: 25-34 minutes Anticipated Discharge Disposition: Home, Self Care Anticipated Discharge Timeframe: within 24 hours
[2020-02-11] MEDS: HEPARIN SOD (PORCINE) 5,000 UNIT/ML 1 ML VIAL SUBCUT SCH (05:04)
[2020-02-11 07:13] LABS: ABSOLUTE BASOPHILS # (AUTO) 0.2 10^3/uL (0.0-0.2); ABSOLUTE EOSINOPHILS # (AUTO) 0.2 10^3/uL (0.0-0.6); ABSOLUTE LYMPHOCYTES (AUTO) 0.9 10^3/uL (0.5-4.7); ABSOLUTE MONOCYTES (AUTO) 0.9 10^3/uL (0.1-1.4); ABSOLUTE NEUT (AUTO) 12.1 10^3/uL (1.7-8.2); BASOPHILS % (AUTO) 1.2 % (0-2); EOSINOPHILS % (AUTO) 1.5 % (0-6); HEMATOCRIT 26.4 % (37.9-51.0); HEMOGLOBIN 8.9 g/dL (13.5-17.0); LYMPHOCYTES % (AUTO) 6.4 % (13-45); MEAN CORPUSCULAR HEMOGLOBIN 29.4 pg (27.0-33.4); MEAN CORPUSCULAR HGB CONC 33.5 g/dL (32.0-36.0); MEAN CORPUSCULAR VOLUME 88 fl (80-97); MONOCYTES % (AUTO) 6.2 % (3-13); PLATELET COUNT 281 10^3/uL (150-450); RED BLOOD COUNT 3.01 10^6/uL (4.35-5.55); RED CELL DISTRIBUTION WIDTH 13.3 % (11.5-14.0); SEGMENTED NEUTROPHILS % (AUTO) 84.7 % (42-78); TOTAL CELLS COUNTED % (AUTO) 100 %; WHITE BLOOD COUNT 14.2 10^3/uL (4.0-10.5)
[2020-02-11] MEDS: HYDROCODONE/ACETAMINOPHEN 10-325 MG TABLET PO PRN ×2 (08:51→12:59)
[2020-02-11 09:16] LABS: ANION GAP 8 (5-19); BLOOD UREA NITROGEN 11 mg/dL (7-20); CALCIUM 8.3 mg/dL (8.4-10.2); CARBON DIOXIDE 24 mmol/L (22-30); CHLORIDE 101 mmol/L (98-107); GLUCOSE 129 mg/dL (75-110); POTASSIUM 4.1 mmol/L (3.6-5.0)
[2020-02-11] MEDS: CYANOCOBALAMIN (VITAMIN B-12) 1,000 MCG TABLET PO SCH (11:00)
[2020-02-11] MEDS: ASPIRIN 81 MG TABLET, ENT COATED PO SCH (11:00)
[2020-02-11] MEDS: FAMOTIDINE INJ/PF 20 MG/2 ML SDV IV SCH (11:00)
[2020-02-11] MEDS: TAMSULOSIN HCL 0.4 MG CAP.SR.24H PO SCH (11:00)
[2020-02-11] MEDS: MAGNESIUM OXIDE 400 MG TABLET PO SCH (11:00)
[2020-02-11] MEDS: DOCUSATE SODIUM 100 MG CAPSULE PO SCH (11:01)
[2020-02-11] MEDS: CEFTRIAXONE 1 GM/D5W RTU 1 GM/50 ML RTUPB IV SCH (11:01)
[2020-02-11] MEDS: FINASTERIDE 5 MG TABLET PO SCH (11:01)
[2020-02-11] MEDS: INSULIN LISPRO 100 UNIT/ML 3 ML VIAL SUBCUT SCH ×2 (11:31→11:33)
[2020-02-11] MEDS: POLYETHYLENE GLYCOL 3350 POWDER 17 GM/1 PACKET PO PRN (11:33)
[2020-02-11] MEDS ORDERED: IRON SUCROSE COMPLEX INJ/PF 100 MG/5 ML SDV IV ONE (12:00)
[2020-02-11 13:30] VITALS: BP 147/50
--- NOTE | 2020-02-11 20:05 | PDOC DISCHARGE SUMMARY ---
Impression - Admit/DC Date/PCP Admission Date/Primary Care Provider: 02/04/20 12:59 HUDSON COTTO MD Discharge Date: 02/11/20 - Discharge Diagnosis (1) Abnormal liver function Is this a current diagnosis for this admission?: Yes (2) Acute blood loss anemia Is this a current diagnosis for this admission?: Yes (3) Acute gallstone pancreatitis Is this a current diagnosis for this admission?: Yes (4) Acute kidney injury Is this a current diagnosis for this admission?: Yes (5) Cholelithiasis Is this a current diagnosis for this admission?: Yes (6) Crohn's disease Is this a current diagnosis for this admission?: Yes (7) Leukocytosis Is this a current diagnosis for this admission?: Yes - Assessment Summary: 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 In the ED, he was noted to have leukocytosis, transaminitis, hyperbilirubinemia, elevated lipase. Abdominal CT and ultrasound showed cholelithiasis with inflammatory changes adjacent to the head of the pancreas and proximal duodenum. He was diagnosed with gallstone pancreatitis and admitted for IVF and pain medications. Gastroenterology and surgery were consulted. He underwent ERCP 02/05/2020 with sphincterotomy and common bile duct stone extraction. He then underwent laparoscopic conversion to open cholecystectomy complicated by intra-abdominal hemorrhage with evacuation of clots and placement of subhepatic drain, which was removed on 02/10/2020. Post- operative course was complicated by acute blood loss anemia requiring 2 units pRBC transfusions and IV iron infusion. Dr. 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 - Additional Information Resuscitation Status: Full Code Discharge Diet: Cardiac Discharge Activity: Activity As Tolerated Referrals: SANDRA CALLOWAY MD [ACTIVE STAFF] - 02/17/20 3:30 pm HUDSON COTTO MD [Primary Care Provider] - 02/13/20 9:00 am (Follow up appointment made for 02/13/2020 at 9:00 AM with Hudson Cotto MD) Prescriptions: Oxycodone HCl/Acetaminophen [Percocet 5-325 mg Tablet] 1 tab PO Q6HP PRN #28 tablet PRN Reason: For Pain Home Medications: Lisinopril [Prinivil 2.5 mg Tablet] 2.5 mg PO DAILY 12/16/11 Metformin HCl 850 mg PO BID 12/16/11 Alfuzosin HCl [Uroxatral] 10 mg PO DAILY 12/30/14 Cholecalciferol (Vitamin D3) [Vitamin D3 2000 unit Tablet] 2,000 unit PO DAILY 12/30/14 Cyanocobalamin (Vitamin B-12) [Vitamin B-12 1000 mcg Tablet] 1,000 mcg PO DAILY 12/30/14 Furosemide [Lasix 40 mg Tablet] 40 mg PO DAILY 12/30/14 Glucosam/Chond-Msm1/C/Wilian/Bor [Bhdvkeq-Sjvwc-DIJ Complex Cplt] 1 tab PO BID 12/30/14 Loratadine [Claritin] 10 mg PO DAILY PRN 12/30/14 Red Yeast Rice 600 mg PO DAILY 12/30/14 Tebs 1 tab PO BID 12/30/14 Pravastatin Sodium [Pravachol] 10 mg PO QPM 06/01/16 Aspirin [Adult Low Dose Aspirin EC] 81 mg PO DAILY 02/04/20 Finasteride [Proscar 5 mg Tablet] 5 mg PO DAILY 02/04/20 Fluticasone Propionate [Flonase Nasal [place] 50 Mcg/[place] 16 gm] 2 spray NASL DAILYP PRN 02/04/20 Ranitidine HCl [Zantac] 150 mg PO BIDP PRN 02/04/20 Ustekinumab [Stelara] 90 mcg SQ [id number] 02/04/20 Oxycodone HCl/Acetaminophen [Percocet 5-325 mg Tablet] 1 tab PO Q6HP PRN #28 tablet 02/11/20 History of Present Illiness History of Present Illness: PRINCE SOARES is a 79 year old male Physical Exam Vital Signs: Temp Pulse Resp BP Pulse Ox 98.0 F 70 17 145/58 H 96 02/11/20 08:01 02/11/20 07:00 02/11/20 06:29 02/11/20 06:29 02/11/20 06:29 Intake & Output 02/10/20 02/11/20 02/12/20 06:59 06:59 06:59 Intake Total 1310 1936 Output Total 30 Balance 1280 1936 Weight 127 kg 127 kg Results Laboratory Results: WBC 14.2 10^3/uL (4.0-10.5) H 02/11/20 05:36 RBC 3.01 10^6/uL (4.35-5.55) L 02/11/20 05:36 Hgb 8.9 g/dL (13.5-17.0) L 02/11/20 05:36 Hct 26.4 % (37.9-51.0) L 02/11/20 05:36 MCV 88 fl (80-97) 02/11/20 05:36 MCH 29.4 pg (27.0-33.4) 02/11/20 05:36 MCHC 33.5 g/dL (32.0-36.0) 02/11/20 05:36 RDW 13.3 % (11.5-14.0) 02/11/20 05:36 Plt Count 281 10^3/uL (150-450) 02/11/20 05:36 Lymph % (Auto) 6.4 % (13-45) L 02/11/20 05:36 [place] % (Auto) 6.2 % (3-13) 02/11/20 05:36 Eos % (Auto) 1.5 % (0-6) 02/11/20 05:36 Baso % (Auto) 1.2 % (0-2) 02/11/20 05:36 Absolute Neuts (auto) 12.1 10^3/uL (1.7-8.2) H 02/11/20 05:36 Absolute Lymphs (auto) 0.9 10^3/uL (0.5-4.7) 02/11/20 05:36 Absolute Monos (auto) 0.9 10^3/uL (0.1-1.4) 02/11/20 05:36 Absolute Eos (auto) 0.2 10^3/uL (0.0-0.6) 02/11/20 05:36 Absolute Basos (auto) 0.2 10^3/uL (0.0-0.2) 02/11/20 05:36 Total Counted 100 02/09/20 04:58 Seg Neutrophils % 84.7 % (42-78) H 02/11/20 05:36 Seg Neuts % (Manual) 82 % (42-78) H 02/09/20 04:58 Band Neutrophils % 1 % (3-5) L 02/08/20 15:18 Lymphocytes % (Manual) 10 % (13-45) L 02/09/20 04:58 Monocytes % (Manual) 8 % (3-13) 02/09/20 04:58 Eosinophils % (Manual) 0 % (0-6) 02/09/20 04:58 Basophils % (Manual) 0 % (0-2) 02/09/20 04:58 Abs Neuts (Manual) 12.6 10^3/uL (1.7-8.2) H 02/09/20 04:58 Abs Lymphs (Manual) 1.5 10^3/uL (0.5-4.7) 02/09/20 04:58 Abs Monocytes (Manual) 1.2 10^3/uL (0.1-1.4) 02/09/20 04:58 Absolute Eos (Manual) 0.0 10^3/uL (0.0-0.6) 02/09/20 04:58 Abs Basophils (Manual) 0.0 10^3/uL (0.0-0.2) 02/09/20 04:58 Hypersegmented Neuts PRESENT 02/09/20 04:58 Toxic Granulation SLIGHT 02/08/20 15:18 Platelet Comment ADEQUATE 02/09/20 04:58 Polychromasia SLIGHT 02/09/20 04:58 Poikilocytosis SLIGHT 02/03/20 23:05 Ovalocytes SLIGHT 02/09/20 04:58 Schistocytes SLIGHT 02/09/20 04:58 RBC Morph Comment NORMO-CYTIC/CHROMIC 02/09/20 04:58 PT 14.0 SEC (11.4-15.4) 02/04/20 16:32 INR 1.06 02/04/20 16:32 Sodium 133.3 mmol/L (137-145) L 02/11/20 05:36 Potassium 4.1 mmol/L (3.6-5.0) 02/11/20 05:36 Chloride 101 mmol/L (98-107) 02/11/20 05:36 Carbon Dioxide 24 mmol/L (22-30) 02/11/20 05:36 Anion Gap 8 (5-19) 02/11/20 05:36 BUN 11 mg/dL (7-20) 02/11/20 05:36 Creatinine 0.76 mg/dL (0.52-1.25) 02/11/20 05:36 Est GFR ( Amer) > 60 (>60) 02/11/20 05:36 Est GFR (MDRD) Non-Af > 60 (>60) 02/11/20 05:36 Glucose 129 mg/dL (75-110) H 02/11/20 05:36 POC Glucose 149 mg/dL (70-110) H 02/11/20 06:24 Calcium 8.3 mg/dL (8.4-10.2) L 02/11/20 05:36 Magnesium 1.5 mg/dL (1.6-2.3) L 02/09/20 04:58 Total Bilirubin 0.7 mg/dL (0.2-1.3) 02/09/20 04:58 Direct Bilirubin 0.3 mg/dL (0.0-0.4) 02/09/20 04:58 Neonat Total Bilirubin Not Reportable 02/09/20 04:58 Neonat Direct Bilirubin Not Reportable 02/09/20 04:58 Neonat Indirect Bili Not Reportable 02/09/20 04:58 AST 34 U/L (17-59) 02/09/20 04:58 ALT 35 U/L (<50) 02/09/20 04:58 Alkaline Phosphatase 106 U/L (38-126) 02/09/20 04:58 Total Protein 4.6 g/dL (6.3-8.2) L 02/09/20 04:58 Albumin 2.2 g/dL (3.5-5.0) L 02/09/20 04:58 Triglycerides 131 mg/dL (<150) 02/03/20 23:05 Lipase 106.3 U/L (23-300) 02/07/20 06:02 Urine Color TRISTON 02/04/20 10:10 Urine Appearance CLOUDY 02/04/20 10:10 Urine pH 5.0 (5.0-9.0) 02/04/20 10:10 Ur Specific [place] 1.018 02/04/20 10:10 Urine Protein 30 mg/dL (NEGATIVE) H 02/04/20 10:10 Urine Glucose (UA) NEGATIVE mg/dL (NEGATIVE) 02/04/20 10:10 Urine Ketones NEGATIVE mg/dL (NEGATIVE) 02/04/20 10:10 Urine Blood NEGATIVE (NEGATIVE) 02/04/20 10:10 Urine Nitrite NEGATIVE (NEGATIVE) 02/04/20 10:10 Urine Bilirubin NEGATIVE (NEGATIVE) 02/04/20 10:10 Urine Urobilinogen 2.0 mg/dL (<2.0) H 02/04/20 10:10 Ur Leukocyte Esterase NEGATIVE (NEGATIVE) 02/04/20 10:10 Urine WBC (Auto) 11 /HPF 02/04/20 10:10 Urine RBC (Auto) 3 /HPF 02/04/20 10:10 U Hyaline Cast (Auto) 1 /LPF 02/04/20 10:10 Squamous Epi Cells Auto 3 /HPF 02/04/20 10:10 Calcium Oxalate Cr Auto FEW /HPF 02/04/20 10:10 Urine Mucus (Auto) RARE /LPF 02/04/20 10:10 Urine Yeast (Budding) PRESENT /HPF 02/04/20 10:10 Urine Ascorbic Acid NEGATIVE (NEGATIVE) 02/04/20 10:10 SARS-CoV-2 (PCR) NEGATIVE (NEGATIVE) 02/04/20 19:30 Blood Type O POSITIVE 02/06/20 12:59 Blood Type Confirm O POSITIVE 02/06/20 12:59 Antibody Screen NEGATIVE 02/06/20 12:59 Crossmatch See Detail 02/06/20 12:59 Impressions: Abdomen/Pelvis CT 02/03/20 22:15 IMPRESSION: 1. Inflammatory changes adjacent to the head of the pancreas and proximal duodenum. Main differentials are pancreatitis or peptic ulcer disease. Correlation with serum lipase is recommended. 2. Cholelithiasis. Abdomen Ultrasound 02/04/20 07:01 IMPRESSION: Cholelithiasis. No evidence of acute cholecystitis. Chest X-Ray 02/04/20 07:50 IMPRESSION: NO ACUTE RADIOGRAPHIC FINDING IN THE CHEST. Catheter Placement 02/05/20 00:00 IMPRESSION: Please see combined report for performance of procedure and radiologic supervision and interpretation. Fluoroscopy 02/05/20 00:00 IMPRESSION: IMAGE(S) OBTAINED DURING PROCEDURE. Cholangiogram 02/06/20 00:00 IMPRESSION: INTRAOPERATIVE CHOLANGIOGRAM. Stroke Is this a Stroke Patient?: No Acute Heart Failure Is this a Heart Failure Patient?: No
== END 2020-02-11 13:05 | disposition home or self-care (01) | DRG 415 ==
LOC: ER 20:43 → EH 02-04 12:59 → 3S 02-04 19:10 → 4S 02-09 12:11
PROVIDERS: ADMIT Internal Medicine; ATTEND Hospitalist
PROC: BF101ZZ Fluoroscopy of Bile Ducts using Low Osmolar Contrast (ICD-10-PCS; 2020-02-05)
PROC: 0FC98ZZ Extirpation of Matter from Common Bile Duct, Via Natural or Artificial Opening Endoscopic (ICD-10-PCS; 2020-02-05)
PROC: 0FJ44ZZ Inspection of Gallbladder, Percutaneous Endoscopic Approach (ICD-10-PCS; 2020-02-06)
PROC: 04LY0ZZ Occlusion of Lower Artery, Open Approach (ICD-10-PCS; 2020-02-06)
PROC: 0FT40ZZ Resection of Gallbladder, Open Approach (ICD-10-PCS; principal; 2020-02-06 11:00)
PROC: 30233N1 Transfusion of Nonautologous Red Blood Cells into Peripheral Vein, Percutaneous Approach (ICD-10-PCS; 2020-02-08)
DX: K85.10 Biliary acute pancreatitis without necrosis or infection (principal); K80.62 Calculus of gallbladder and bile duct with acute cholecystitis without obstruction; K50.90 Crohn's disease, unspecified, without complications; I48.21 Permanent atrial fibrillation; N17.9 Acute kidney failure, unspecified; D62 Acute posthemorrhagic anemia; K91.61 Intraoperative hemorrhage and hematoma of a digestive system organ or structure complicating a digestive system procedure; I10 Essential (primary) hypertension; E11.9 Type 2 diabetes mellitus without complications; E78.5 Hyperlipidemia, unspecified; N40.0 Benign prostatic hyperplasia without lower urinary tract symptoms; M17.0 Bilateral primary osteoarthritis of knee; E66.9 Obesity, unspecified; Z20.828 Contact with and (suspected) exposure to other viral communicable diseases; Z95.0 Presence of cardiac pacemaker; Z90.49 Acquired absence of other specified parts of digestive tract; Z87.891 Personal history of nicotine dependence; I25.2 Old myocardial infarction; Z95.5 Presence of coronary angioplasty implant and graft; Z79.84 Long term (current) use of oral hypoglycemic drugs; Z79.899 Other long term (current) drug therapy; Z53.31 Laparoscopic surgical procedure converted to open procedure
CPT/HCPCS: 36415; 36430; 43262; 43264; 43277; 71045; 732; 74176; 74300; 74328; 76705; 790; 80048; 80053; 81001; 82962; 83690; 83735; 84478; 85025; 85027; 85610; 86850; 86900; 86901; 86920; 87040; 87070; 87075; 87205; 87635; 88304; 93005; 93010; 94667; 96361; 96374; 96375; 96376; 99285; C9290; C9803; J0131; J0171; J0330; J0696; J1100; J1610; J1644; J1756; J1815; J2250; J2270; J2405; J2550; J2704; J2710; J2765; J3010; J3490; J7030; P9016; S0028; S0119